=== PATIENT | female | born 1960 | race Caucasian/White ===

== ENCOUNTER 2020-10-06 09:52 | Outpatient (REF) | payer OTHER, SELFPAY ==
--- NOTE | 2020-10-06 10:56 | XR_ITS ---
EXAMINATION: XR CERVICAL SPINE CLINICAL INFORMATION: Neck pain. COMPARISON: None TECHNIQUE: Three views of the cervical spine were obtained. FINDINGS: The C7 vertebral body is not well visualized on the lateral view There is curvature of the lower cervical and upper thoracic spine to the right. Bone alignment is otherwise normal. No fracture or dislocation is seen. There is degenerative spondylosis and degenerative disc disease from C4-C5 to C6-C7. Prevertebral soft tissues appear prominent. No abnormal air collection or soft tissue foreign body is seen. XR/XR cervical spine 2V IMPRESSION: Limited visualization of C7. Severe degenerative spondylosis and degenerative disc disease from C4-C5 to C6-C7. Prominent prevertebral soft tissues anterior to the lower cervical spine.
== END 2020-10-06 09:53 | disposition home or self-care (01) ==
LOC: HO.XRAY 09:52
PROVIDERS: PCP Internal Medicine; Referring Provider Internal Medicine; Visit Provider Student in an Organized Health Care Education/Training Program
DX: M54.2 Cervicalgia (principal); M79.7 Fibromyalgia; M19.90 Unspecified osteoarthritis, unspecified site; F17.210 Nicotine dependence, cigarettes, uncomplicated; Z79.899 Other long term (current) drug therapy
CPT/HCPCS: 72040; 99212

== ENCOUNTER 2020-10-14 12:49 | Outpatient (REF) | payer OTHER, SELFPAY ==
--- NOTE | 2020-10-14 11:54 | MR_ITS ---
EXAMINATION: MR CERVICAL SPINE WITHOUT CONTRAST CLINICAL INFORMATION: Cervicalgia. COMPARISON: Cervical spine radiograph 10/06/2020. TECHNIQUE: MRI of the cervical spine was performed using routine sequences without contrast. FINDINGS: There are expected extensive T2/STIR signal abnormality involving the C4, C5, C6, C7, and T1 vertebral bodies there is significant loss of the C4-C5, C5-C6, C6-C7, and C7-T1 disc spaces. Endplate irregularity is seen at C6-C7 but no subchondral collapse is noted. Abnormal STIR signal is also present in the posterior elements and paraspinal soft tissues from C4 through T1. Ill-defined soft tissue is seen in the paravertebral region from the C4 through upper T1 levels compatible with phlegmon. The visualized arterial flow voids appear preserved. The cervical cord signal appears normal. Epidural thickening/phlegmonous change is seen ventrally from C4 to C7. No well-defined epidural collection is seen. The imaged portions of the intracranial contents appear normal. SPINAL LEVELS: C2-C3: No posterior disc abnormality. No spinal canal or neural foraminal stenosis. C3-C4: Disc bulging with left uncovertebral hypertrophy resulting in mild left neural foraminal stenosis. C4-C5: Minimal anterolisthesis. Disc bulging. Moderate spinal canal stenosis. Uncovertebral hypertrophy resulting in moderate left and mild right neural foraminal stenosis. C5-C6: Disc osteophyte complex with uncovertebral hypertrophy resulting in moderate spinal canal stenosis and moderate left more than right neural foraminal stenosis. C6-C7: Disc osteophyte complex with uncovertebral hypertrophy resulting in moderate left and mild right neural foraminal stenosis. C7-T1: Disc osteophyte complex with uncovertebral hypertrophy resulting in moderate bilateral neural foraminal stenosis but no significant spinal canal stenosis. MR/MR cervical spine wo con IMPRESSION: Extensive T2/STIR signal abnormality is seen involving the C4-T1 vertebral bodies and posterior elements. Significant disc height loss is seen without discrete subchondral collapse. Abnormal soft tissue is present in the paravertebral region concerning for phlegmon. The imaging features are concerning for discitis osteomyelitis. However due to the extensive involvement, other differential considerations should become considered including an infiltrative lesion such as lymphoma, or advanced changes related to inflammatory spondyloarthropathy. Abnormal signal within the ventral epidural space from C4 to C5 is concerning for phlegmon. Consider dedicated postcontrast images of the cervical spine. Dedicated cervical spine CT may also be value in evaluating for erosive changes. This critical result was discussed with Dr. Butcher on 10/15/2020 12:01 PM, and it was ascertained that the content and urgency of the report was understood at the time of direct communication.
== END 2020-10-14 12:50 | disposition home or self-care (01) ==
LOC: HO.MRI 12:49
PROVIDERS: Visit Provider Student in an Organized Health Care Education/Training Program
DX: M54.2 Cervicalgia (principal)
CPT/HCPCS: 72141

== ENCOUNTER 2020-10-15 15:25 | Outpatient (REF) | payer OTHER, SELFPAY ==
--- NOTE | 2020-10-15 16:03 | CT_ITS ---
EXAMINATION: CT CERVICAL SPINE WITH CONTRAST CLINICAL INFORMATION: Abnormal findings on diagnostic imaging of other parts of musculoskeletal system. COMPARISON: Cervical spine MRI 10/14/2020. TECHNIQUE: CT of the cervical spine was performed following the intravenous administration of 60 mL Omnipaque 350. Multiplanar reformats were rendered and reviewed. This CT examination was performed using dose optimization techniques as appropriate, variously including the following: *Automated exposure control *Adjustment of mA and/or kV according to patient size (this includes techniques or standardized protocols for targeted exams where dose is matched to indication/reason for exam; i.e. extremities or head) *Use of iterative reconstruction technique DLP: 301 mGy-cm FINDINGS: The vertebral bodies maintain normal heights and alignment. There are sclerotic changes centered about the endplates from C4 through T1 with endplate irregularity seen across multiple levels most significantly inferiorly at C7. No subchondral collapse is seen. Anterior osteophytes/syndesmophytes are seen from C4 to T1. Mild degenerative changes are seen involving the right-sided facets but no severe facet arthropathy is noted. As noted on the prior MRI there is significant thickening of the paravertebral soft tissues without a well-defined or rim-enhancing fluid collection. The imaged portions of the intracranial contents appear normal. The major neck vessels appear grossly patent the thyroid gland appears normal. The submandibular and parotid glands appear normal. An enlarged left level 5B lymph node is seen measuring up to 1.1 cm. Additional nonenlarged lymph nodes are seen along the bilateral cervical chains. Incidentally noted are significant erosive changes at the bilateral sternoclavicular joints. The upper lungs are grossly clear CT/CT cervical spine w con IMPRESSION: Diffuse intervertebral disc height loss from C4 through T1 with sclerotic changes within the vertebral bodies with multifocal endplate irregularities most significantly at C7-T1. No evidence of subchondral collapse. No definite erosive changes seen involving the facets. Redemonstration of paravertebral soft tissue thickening. No evidence of rim-enhancing fluid collection. Incidentally noted significant erosive changes at the bilateral sternoclavicular joints. Given these features (and involvement of the sternoclavicular joints), an inflammatory etiology, most likely an inflammatory spondyloarthropathy is favored to account for these findings. The paravertebral thickening may represent inflammatory panus. Infectious process remains a differential consideration but is felt less likely (patient reportedly does not have fever). Incidentally noted nonspecific mildly enlarged 1.1 cm left level 5B lymph node.
[2020-10-15 17:31] LABS: Blood Urea Nitrogen 10 mg/dL (9-16); Estimated Glomerular Filt Rate > 60
[2020-10-15] MEDS: iohexoL 350 MG/ML 100 ML INFUS..BTL IV (18:12)
== END 2020-10-15 15:26 | disposition home or self-care (01) ==
LOC: HO.CT 15:25
PROVIDERS: PCP Internal Medicine; Visit Provider Student in an Organized Health Care Education/Training Program
DX: R93.7 Abnormal findings on diagnostic imaging of other parts of musculoskeletal system (principal)
CPT/HCPCS: 36415; 72126; 82565; 84520; Q9967

== ENCOUNTER 2020-10-16 16:04 | Outpatient (REF) | payer OTHER, SELFPAY ==
--- NOTE | 2020-10-16 16:06 | MR_ITS ---
EXAMINATION: MR CERVICAL SPINE WITH CONTRAST CLINICAL INFORMATION: Follow-up abnormal findings on recent prior imaging. COMPARISON: MRI from 10/14/[address] dated 10/15/2020. TECHNIQUE: MRI of the cervical spine was obtained using routine sequences with contrast. Intravenous contrast: Gadavist 5 mL. FINDINGS: There is diffuse heterogeneous enhancement in the C4, C5, C6, C7, and T1 vertebral bodies with additional abnormal enhancement in the posterior elements and in the C7 spinous process. Mild epidural soft tissue enhancement is visible from the C4 through the T1 levels as well with circumferential impression upon the thecal sac and exiting foraminal nerve roots, most significantly at the C6-C7 level. There is abnormal soft tissue enhancement in the prevertebral soft tissues at these levels as well. No drainable fluid collection is identified. There is a stable reversal of the normal cervical lordosis. There is no abnormal enhancement intracranially on the submitted images. No pathologic intramedullary enhancement is seen in the cord. The vertebral artery flow voids are maintained. The lung apices are clear. There is nonspecific mild circumferential wall thickening of the esophagus. No pathologically enlarged cervical lymph nodes are seen. MR/MR cervical spine w con IMPRESSION: Diffuse heterogeneous enhancement in the C4-T1 vertebrae with prevertebral soft tissue thickening and enhancement again evident at these levels. Circumferential epidural soft tissue enhancement with impression upon the thecal sac. No drainable fluid collection. 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 An infectious etiology is a differential diagnostic consideration, though again felt to be less likely. Clinically correlate.
== END 2020-10-16 16:05 | disposition home or self-care (01) ==
LOC: HO.MRI 16:04
PROVIDERS: Visit Provider Student in an Organized Health Care Education/Training Program
DX: R93.7 Abnormal findings on diagnostic imaging of other parts of musculoskeletal system (principal)
CPT/HCPCS: 72142; A9585

== ENCOUNTER 2020-11-07 10:42 | Outpatient (REF) | payer OTHER, SELFPAY | END 2020-11-07 10:43 | disposition home or self-care (01) | LOC: HO.LAB 10:42 | PROVIDERS: PCP Internal Medicine; Visit Provider Student in an Organized Health Care Education/Training Program | DX: R93.7 Abnormal findings on diagnostic imaging of other parts of musculoskeletal system (principal) | CPT/HCPCS: 87040 ==

== ENCOUNTER 2021-04-09 12:13 | Outpatient (REF) | payer OTHER, SELFPAY ==
[2021-04-09 13:15] LABS: MANUAL DIFF FLAG NO
[2021-04-09 13:19] LABS: Basophils Absolute Auto 0.1 X10*3/uL (0.0-0.2); Basophils Percent Auto 0.9 % (0-2); Eosinophils Absolute Auto 0.2 X10*3/uL (0.0-0.4); Eosinophils Percent Auto 1.3 % (0-4); Hemoglobin 12.2 g/dl (12.0-16.0); Imm Gran Abs Auto 0.02 X10*3/uL (0.00-0.03); Imm Gran Pct Auto 0.2 % (0.0-0.4); Lymphocytes Absolute Auto 3.6 X10*3/uL (1.2-4.9); Lymphocytes Percent Auto 31.3 % (20-40); Mean Corpuscular HGB Conc 32.1 g/dl (31.0-35.0); Mean Corpuscular Volume 87.4 fL (80-98); Mean Platelet Volume 8.7 fL (9.4-12.3); Monocytes Absolute Auto 0.9 X10*3/uL (0.1-1.2); Monocytes Percent Auto 7.4 % (2-11); Neutrophils Absolute Auto 6.8 X10*3/uL (2.0-8.3); Neutrophils Percent Auto 58.9 % (45-73); Platelet Count 466 X10*3/uL (160-400); Red Blood Count 4.35 X10*6/uL (4.20-5.50); Red Cell Distribution Width 16.2 % (11.0-16.0); White Blood Count 11.6 X10*3/uL (4.8-10.8)
[2021-04-09 13:44] LABS: Alanine Aminotransferase 13 U/L (0-31); Albumin Level 3.9 g/dL (3.5-5.0); Alkaline Phosphatase 157 U/L (39-117); Anion Gap 13 (12-20); Aspartate Amino Transferase 16 U/L (5-31); Bilirubin Total 0.3 mg/dL (0.0-1.0); Blood Urea Nitrogen 8 mg/dL (9-16); C Reactive Protein 6.14 mg/dL (< or = 0.50); Calcium 9.2 mg/dL (8.4-10.2); Carbon Dioxide 28 mmol/L (22-29); Chloride 101 mmol/L (96-108); Estimated Glomerular Filt Rate > 60; Glucose Random 79 mg/dL (60-115); Potassium 3.9 mmol/L (3.3-5.1); Sodium 138 mmol/L (135-145); Total Protein 7.5 g/dL (6.5-8.0)
[2021-04-09 14:00] LABS: Erythrocyte Sedimentation Rate 78 MM/HR (0-20)
== END 2021-04-09 12:14 | disposition home or self-care (01) ==
LOC: HO.LAB 12:13
PROVIDERS: PCP Internal Medicine; Visit Provider Student in an Organized Health Care Education/Training Program
DX: L40.50 Arthropathic psoriasis, unspecified (principal); M79.7 Fibromyalgia; F17.210 Nicotine dependence, cigarettes, uncomplicated; Z79.899 Other long term (current) drug therapy
CPT/HCPCS: 36415; 80053; 85025; 85652; 86140; 99212

== ENCOUNTER → 2021-04-16 10:35 | Outpatient (BNVA) | payer OTHER, SELFPAY | PROVIDERS: PCP Internal Medicine; Visit Provider Student in an Organized Health Care Education/Training Program ==

== ENCOUNTER → 2021-05-27 10:40 | Outpatient (BNVA) | payer OTHER, SELFPAY | PROVIDERS: PCP Internal Medicine; Visit Provider Student in an Organized Health Care Education/Training Program ==

== ENCOUNTER → 2021-08-24 12:45 | Outpatient (BNVA) | payer OTHER, SELFPAY | PROVIDERS: PCP Internal Medicine; Visit Provider Nurse Practitioner Family | DX: L40.50 Arthropathic psoriasis, unspecified (principal); M79.7 Fibromyalgia | CPT/HCPCS: 99212 ==

== ENCOUNTER 2021-09-28 12:50 | Outpatient (REF) | payer OTHER, SELFPAY ==
[2021-09-28 13:04] LABS: MANUAL DIFF FLAG NO
[2021-09-28 13:23] LABS: Basophils Absolute Auto 0.1 X10*3/uL (0.0-0.2); Basophils Percent Auto 0.8 % (0-2); Eosinophils Absolute Auto 0.2 X10*3/uL (0.0-0.4); Eosinophils Percent Auto 1.5 % (0-4); Hematocrit 38.7 % (37.0-47.0); Hemoglobin 12.5 g/dl (12.0-16.0); Imm Gran Abs Auto 0.02 X10*3/uL (0.00-0.03); Imm Gran Pct Auto 0.2 % (0.0-0.4); Lymphocytes Absolute Auto 4.1 X10*3/uL (1.2-4.9); Lymphocytes Percent Auto 42.1 % (20-40); Mean Corpuscular HGB Conc 32.3 g/dl (31.0-35.0); Mean Corpuscular Hemoglobin 29.8 pg (27.0-33.0); Mean Corpuscular Volume 92.1 fL (80.0-98.0); Mean Platelet Volume 9.4 fL (9.4-12.3); Monocytes Absolute Auto 0.6 X10*3/uL (0.1-1.2); Monocytes Percent Auto 6.5 % (2-11); Neutrophils Absolute Auto 4.7 x10*3/uL (2.0-8.3); Neutrophils Percent Auto 48.9 % (45-73); Platelet Count 354 X10*3/uL (160-400); Red Cell Distribution Width 15.2 % (11.0-16.0); White Blood Count 9.7 X10*3/uL (4.8-10.8)
[2021-09-28 13:39] LABS: Alanine Aminotransferase 18 U/L (0-31); Alkaline Phosphatase 118 U/L (39-117); Anion Gap 10 (12-20); Aspartate Amino Transferase 18 U/L (5-31); Bilirubin Total 0.2 mg/dL (0.0-1.0); Blood Urea Nitrogen 18 mg/dL (9-16); Calcium 9.2 mg/dL (8.4-10.2); Carbon Dioxide 28 mmol/L (22-29); Chloride 106 mmol/L (96-108); Estimated Glomerular Filt Rate > 60; Glucose Random 88 mg/dL (60-115); Potassium 3.8 mmol/L (3.3-5.1); Sodium 140 mmol/L (135-145); Total Protein 7.3 g/dL (6.5-8.0)
[2021-09-28 14:23] LABS: Erythrocyte Sedimentation Rate 23 MM/HR (0-20)
[2021-10-01 14:31] LABS: Alkaline Phosphatase Bone 22.1 mcg/L (5.6-29.0)
== END 2021-09-28 12:51 | disposition home or self-care (01) ==
LOC: HO.LAB 12:50
PROVIDERS: Visit Provider Nurse Practitioner Family
DX: L40.50 Arthropathic psoriasis, unspecified (principal); R74.8 Abnormal levels of other serum enzymes
CPT/HCPCS: 36415; 80053; 84075; 85025; 85652; 86140

== ENCOUNTER → 2021-10-22 10:53 | Outpatient (BNVA) | payer OTHER, SELFPAY | PROVIDERS: Visit Provider Nurse Practitioner Family ==

== ENCOUNTER 2021-11-25 12:41 | Outpatient (REF) | payer OTHER, SELFPAY ==
[2021-11-25 13:36] LABS: MANUAL DIFF FLAG NO
[2021-11-25 13:47] LABS: Basophils Absolute Auto 0.1 X10*3/uL (0.0-0.2); Basophils Percent Auto 0.8 % (0-2); Eosinophils Absolute Auto 0.2 X10*3/uL (0.0-0.4); Eosinophils Percent Auto 1.7 % (0-4); Hematocrit 38.4 % (37.0-47.0); Hemoglobin 12.2 g/dl (12.0-16.0); Imm Gran Abs Auto 0.03 X10*3/uL (0.00-0.03); Imm Gran Pct Auto 0.3 % (0.0-0.4); Lymphocytes Absolute Auto 3.9 X10*3/uL (1.2-4.9); Lymphocytes Percent Auto 38.9 % (20-40); Mean Corpuscular HGB Conc 31.8 g/dl (31.0-35.0); Mean Corpuscular Hemoglobin 29.6 pg (27.0-33.0); Mean Corpuscular Volume 93.2 fL (80.0-98.0); Mean Platelet Volume 8.9 fL (9.4-12.3); Monocytes Absolute Auto 0.7 X10*3/uL (0.1-1.2); Neutrophils Absolute Auto 5.2 x10*3/uL (2.0-8.3); Neutrophils Percent Auto 51.3 % (45-73); Platelet Count 335 X10*3/uL (160-400); Red Blood Count 4.12 X10*6/uL (4.20-5.50); Red Cell Distribution Width 15.7 % (11.0-16.0); White Blood Count 10.1 X10*3/uL (4.8-10.8)
[2021-11-25 14:08] LABS: Alanine Aminotransferase 22 U/L (0-31); Albumin Level 3.9 g/dL (3.5-5.0); Alkaline Phosphatase 115 U/L (39-117); Anion Gap 10 (12-20); Aspartate Amino Transferase 21 U/L (5-31); Bilirubin Total 0.2 mg/dL (0.0-1.0); Blood Urea Nitrogen 19 mg/dL (9-16); Carbon Dioxide 27 mmol/L (22-29); Chloride 105 mmol/L (96-108); Estimated Glomerular Filt Rate > 60; Glucose Random 105 mg/dL (60-115); Potassium 3.9 mmol/L (3.3-5.1); Sodium 138 mmol/L (135-145)
[2021-11-25 15:02] LABS: Erythrocyte Sedimentation Rate 23 MM/HR (0-20)
== END 2021-11-25 12:42 | disposition home or self-care (01) ==
LOC: HO.LAB 12:41
PROVIDERS: Visit Provider Nurse Practitioner Family
DX: L40.50 Arthropathic psoriasis, unspecified (principal); M79.7 Fibromyalgia
CPT/HCPCS: 36415; 80053; 85025; 85652; 86140; 99212

== ENCOUNTER → 2021-12-20 10:25 | Outpatient (REF) | payer OTHER, SELFPAY | LOC: HO.SL 10:25 | PROVIDERS: PCP Internal Medicine; Visit Provider Nurse Practitioner Family | DX: R06.83 Snoring (principal); R40.0 Somnolence; G47.19 Other hypersomnia; G47.00 Insomnia, unspecified; G43.109 Migraine with aura, not intractable, without status migrainosus | CPT/HCPCS: 95806 ==

== ENCOUNTER → 2022-01-17 07:59 | Outpatient (BNVA) | payer OTHER, SELFPAY | PROVIDERS: PCP Internal Medicine; Visit Provider Nurse Practitioner Family | DX: G43.109 Migraine with aura, not intractable, without status migrainosus (principal); G47.00 Insomnia, unspecified | CPT/HCPCS: 99212 ==

== ENCOUNTER → 2022-02-28 09:37 | Outpatient (BNVA) | payer OTHER, SELFPAY | PROVIDERS: PCP Internal Medicine; Visit Provider Nurse Practitioner Family | DX: L40.50 Arthropathic psoriasis, unspecified (principal); M79.7 Fibromyalgia | CPT/HCPCS: 99212 ==

== ENCOUNTER → 2022-05-30 10:20 | Outpatient (BNVA) | payer OTHER, SELFPAY | PROVIDERS: PCP Neurological Surgery; Visit Provider Nurse Practitioner Family | DX: L40.50 Arthropathic psoriasis, unspecified (principal); M79.7 Fibromyalgia; Z79.899 Other long term (current) drug therapy | CPT/HCPCS: 99212 ==

== ENCOUNTER → 2022-10-17 11:02 | Outpatient (BNVA) | payer OTHER, SELFPAY | PROVIDERS: PCP Neurological Surgery; Visit Provider Nurse Practitioner Family | DX: L40.50 Arthropathic psoriasis, unspecified (principal); M79.7 Fibromyalgia; Z79.899 Other long term (current) drug therapy | CPT/HCPCS: 99212 ==

== ENCOUNTER 2022-10-17 12:27 | Outpatient (REF) | payer OTHER, SELFPAY ==
[2022-10-17 14:32] LABS: C Reactive Protein 0.28 mg/dL (< or = 0.50)
[2022-10-17 16:18] LABS: Erythrocyte Sedimentation Rate 28 MM/HR (0-20)
== END 2022-10-17 12:28 | disposition home or self-care (01) ==
LOC: HO.10HDL 12:27
PROVIDERS: Visit Provider Nurse Practitioner Family
DX: L40.50 Arthropathic psoriasis, unspecified (principal)
CPT/HCPCS: 36415; 85652; 86140

== ENCOUNTER → 2022-12-13 09:46 | Outpatient (BNVA) | payer OTHER, SELFPAY | PROVIDERS: PCP Internal Medicine; Visit Provider Nurse Practitioner Family | DX: L40.50 Arthropathic psoriasis, unspecified (principal); M79.7 Fibromyalgia | CPT/HCPCS: 99212 ==

== ENCOUNTER 2022-12-13 11:07 | Outpatient (REF) | payer OTHER, SELFPAY ==
[2022-12-13 13:18] LABS: MANUAL DIFF FLAG NO
[2022-12-13 13:29] LABS: Basophils Absolute Auto 0.1 X10*3/uL (0.0-0.2); Basophils Percent Auto 0.9 % (0-2); Eosinophils Absolute Auto 0.1 X10*3/uL (0.0-0.4); Eosinophils Percent Auto 1.1 % (0-4); Hematocrit 40.2 % (37.0-47.0); Hemoglobin 12.8 g/dl (12.0-16.0); Imm Gran Abs Auto 0.04 X10*3/uL (0.00-0.03); Imm Gran Pct Auto 0.5 % (0.0-0.4); Lymphocytes Absolute Auto 1.7 X10*3/uL (1.2-4.9); Lymphocytes Percent Auto 19.1 % (20-40); Mean Corpuscular HGB Conc 31.8 g/dl (31.0-35.0); Mean Corpuscular Hemoglobin 29.6 pg (27.0-33.0); Mean Corpuscular Volume 92.8 fL (80.0-98.0); Mean Platelet Volume 10.3 fL (9.4-12.3); Monocytes Absolute Auto 1.1 X10*3/uL (0.1-1.2); Monocytes Percent Auto 12.3 % (2-11); Neutrophils Absolute Auto 5.8 x10*3/uL (2.0-8.3); Neutrophils Percent Auto 66.1 % (45-73); Platelet Count 358 X10*3/uL (160-400); Red Blood Count 4.33 X10*6/uL (4.20-5.50); Red Cell Distribution Width 15.2 % (11.0-16.0); White Blood Count 8.7 X10*3/uL (4.8-10.8)
[2022-12-13 14:14] LABS: Erythrocyte Sedimentation Rate 40 MM/HR (0-20)
[2022-12-13 15:37] LABS: Alanine Aminotransferase 13 U/L (0-31); Albumin Level 4.1 g/dL (3.5-5.0); Alkaline Phosphatase 145 U/L (39-117); Anion Gap 10 (12-20); Aspartate Amino Transferase 15 U/L (5-31); Bilirubin Total 0.2 mg/dL (0.0-1.0); Blood Urea Nitrogen 15 mg/dL (9-16); C Reactive Protein 0.92 mg/dL (< or = 0.50); Calcium 8.9 mg/dL (8.4-10.2); Carbon Dioxide 28 mmol/L (22-29); Chloride 107 mmol/L (96-108); Estimated Glomerular Filt Rate > 60; Glucose Random 82 mg/dL (60-115); Potassium 4.3 mmol/L (3.3-5.1); Sodium 141 mmol/L (135-145); Total Protein 7.3 g/dL (6.5-8.0)
[2022-12-13 15:43] LABS: Amphetamine Screen Urine Not Detected (Not Detect); Barbiturates, Urine Not Detected (Not Detect); Benzodiazepines Screen Urine Not Detected (Not Detect); Cannabinoid Screen Urine Not Detected (Not Detect); Cocaine Screen Urine Not Detected (Not Detect); Fentanyl, urine Not Detected (Not Detect); Opiate Screen Urine Not Detected (Not Detect); Phencyclidine Screen Urine Not Detected (Not Detect)
[2022-12-14 04:27] LABS: HBS Num1 0.14 mIU/mL (0-7.99); HBc Num1 0.09 S/CO (0.00-0.79); Hepatitis A Antibody IgM 0.32 Index (0-0.79); Hepatitis B Core Antibody Nonreactive (Nonreactive); Hepatitis B Surface Antigen Negative (Negative); ~HepC Num1 0.15 S/CO (0.00-0.79); ~Hepatitis A Antibody IgM Nonreactive (Nonreactive); ~Hepatitis B Surface Antibody NONREACTIVE (Nonreactive); ~Hepatitis C Antibody Nonreactive (Nonreactive)
[2022-12-15 22:59] LABS: Prot Elec - Albumin 3.9 g/dL (3.8-4.8); Prot Elec - Alpha1 0.3 g/dL (0.2-0.3); Prot Elec - Beta 1 0.4 g/dL (0.4-0.6); Prot Elec - Beta 2 0.5 g/dL (0.2-0.5); Prot Elec - Gamma 1.5 g/dL (0.8-1.7); Prot Elec - Total Protein 7.5 g/dL (6.1-8.1)
[2022-12-16 06:34] LABS: TS Negative Control Passed; TS Panel A 0; TS Panel B 0; TS Positive Control Passed; TSpotTB Negative (Negative)
[2022-12-26 07:47] LABS: Desmethyltramadol, Ur NEGATIVE; Tramadol, Ur NEGATIVE
== END 2022-12-13 11:08 | disposition home or self-care (01) ==
LOC: HO.10HDL 11:07
PROVIDERS: Visit Provider Nurse Practitioner Family
DX: L40.50 Arthropathic psoriasis, unspecified (principal); M79.7 Fibromyalgia; Z51.81 Encounter for therapeutic drug level monitoring; Z79.899 Other long term (current) drug therapy
CPT/HCPCS: 80053; 80307; 80373; 84165; 85025; 85652; 86140; 86481; 86704; 86706; 86709; 86803; 87340

== ENCOUNTER → 2023-01-13 10:43 | Outpatient (BNVA) | payer OTHER, SELFPAY | PROVIDERS: PCP Internal Medicine; Visit Provider Nurse Practitioner Family | DX: L40.50 Arthropathic psoriasis, unspecified (principal); M79.7 Fibromyalgia | CPT/HCPCS: 99212 ==

== ENCOUNTER 2023-01-13 12:02 | Outpatient (REF) | payer OTHER, SELFPAY ==
[2023-01-13 13:18] LABS: MANUAL DIFF FLAG NO
[2023-01-13 13:28] LABS: Basophils Absolute Auto 0.2 X10*3/uL (0.0-0.2); Basophils Percent Auto 1.3 % (0-2); Eosinophils Absolute Auto 0.2 X10*3/uL (0.0-0.4); Eosinophils Percent Auto 1.6 % (0-4); Hematocrit 40.5 % (37.0-47.0); Hemoglobin 12.9 g/dl (12.0-16.0); Imm Gran Abs Auto 0.03 X10*3/uL (0.00-0.03); Imm Gran Pct Auto 0.3 % (0.0-0.4); Lymphocytes Absolute Auto 4.8 X10*3/uL (1.2-4.9); Lymphocytes Percent Auto 42.7 % (20-40); Mean Corpuscular HGB Conc 31.9 g/dl (31.0-35.0); Mean Corpuscular Hemoglobin 29.3 pg (27.0-33.0); Mean Corpuscular Volume 91.8 fL (80.0-98.0); Mean Platelet Volume 9.9 fL (9.4-12.3); Monocytes Absolute Auto 0.7 X10*3/uL (0.1-1.2); Monocytes Percent Auto 6.6 % (2-11); Neutrophils Absolute Auto 5.4 x10*3/uL (2.0-8.3); Neutrophils Percent Auto 47.5 % (45-73); Platelet Count 312 X10*3/uL (160-400); Red Blood Count 4.41 X10*6/uL (4.20-5.50); Red Cell Distribution Width 14.6 % (11.0-16.0); White Blood Count 11.3 X10*3/uL (4.8-10.8)
[2023-01-13 13:40] LABS: Alanine Aminotransferase 15 U/L (0-31); Alkaline Phosphatase 125 U/L (39-117); Anion Gap 12 (12-20); Aspartate Amino Transferase 17 U/L (5-31); Bilirubin Total 0.3 mg/dL (0.0-1.0); Blood Urea Nitrogen 17 mg/dL (9-16); C Reactive Protein 0.13 mg/dL (< or = 0.50); Calcium 8.9 mg/dL (8.4-10.2); Carbon Dioxide 27 mmol/L (22-29); Chloride 106 mmol/L (96-108); Estimated Glomerular Filt Rate > 60; Glucose Random 84 mg/dL (60-115); Potassium 3.8 mmol/L (3.3-5.1); Sodium 141 mmol/L (135-145); Total Protein 7.1 g/dL (6.5-8.0)
[2023-01-13 14:14] LABS: Erythrocyte Sedimentation Rate 20 MM/HR (0-20)
== END 2023-01-13 12:03 | disposition home or self-care (01) ==
LOC: HO.10HDL 12:02
PROVIDERS: Visit Provider Nurse Practitioner Family
DX: L40.50 Arthropathic psoriasis, unspecified (principal); M79.7 Fibromyalgia; Z79.899 Other long term (current) drug therapy
CPT/HCPCS: 36415; 80053; 85025; 85652; 86140

== ENCOUNTER → 2023-01-24 12:05 | Outpatient (BNVA) | payer OTHER, SELFPAY | PROVIDERS: PCP Internal Medicine; Visit Provider Psychiatry & Neurology Neurology | DX: G37.3 Acute transverse myelitis in demyelinating disease of central nervous system (principal); M79.7 Fibromyalgia; G56.22 Lesion of ulnar nerve, left upper limb; Z79.631 Long term (current) use of antimetabolite agent | CPT/HCPCS: 99202 ==

== ENCOUNTER 2023-03-09 10:25 | Outpatient (REF) | payer OTHER, SELFPAY ==
--- NOTE | ~2023-03-09 | MR_ITS ---
EXAMINATION: MR BRAIN WITHOUT AND WITH CONTRAST CLINICAL INFORMATION: 62-year-old with acute transverse myelitis and malalignment disease of the central nervous system. Self-reported history of psoriatic arthritis and rheumatoid arthritis. COMPARISON: 10/16/2020 MRI cervical spine, previously suspected inflammatory spondyloarthropathy. TECHNIQUE: Multiplanar, multisequence MRI of the brain was obtained before and after the intravenous administration of 5 mL Gadavist. FINDINGS: Brain Volume: Within normal limits within the limitations of qualitative assessment. Structural: No malformations. Brain and Meninges: DWI sequence demonstrates no restricted diffusion to suggest acute or subacute cerebral ischemia. There are scattered small patchy and punctate foci of FLAIR/T2 signal hyperintensity in the subcortical white matter of both cerebral hemispheres and within the subcortical and deeper white matter of the parieto-occipital regions/periatrial regions bilaterally and left temporal lobe white matter with no abnormal enhancement. These are nonspecific but could reflect chronic ischemic microangiopathy. No evidence for acute inflammatory process. Demyelinating disease is considered less likely but not entirely excluded. Gradient refocused imaging demonstrates no abnormal susceptibility-weighted signal loss to suggest hemorrhage, hemosiderin staining or abnormal mineralization. No intracranial mass lesions, pathologic intracranial enhancement, extra-axial fluid collections, space-occupying process or mass effect are identified. Ventricles and Subarachnoid Spaces: The ventricular system and subarachnoid spaces are within normal range; there is no hydrocephalus. Orbital Structures: The visualized orbital structures are grossly unremarkable within the limitations of the study. Vascular: Signal voids are noted in the visualized major intracranial vessels. Osseous Structures, Sinuses/Mastoids, Extracranial Soft Tissues: T1 signal loss noted in the C4 vertebral body which is slightly more prominent than on the previous MRI. Otherwise, osseous marrow signal intensity appears grossly within normal limits. The visualized extra cranial soft tissue structures are unremarkable. There is minor mucosal thickening in the ethmoid complex.. MR/MR head/brain wo/w con IMPRESSION: 1. Scattered nonenhancing white matter T2 hyperintensities in the cerebral hemispheres bilaterally as described above which are nonspecific findings but could reflect chronic ischemic microangiopathy. Demyelinating disease is considered less likely but not entirely excluded. 2. No intracranial mass lesion, pathologic enhancement, space-occupying process, mass effect, hemorrhage, or hydrocephalus. 3. T1 signal loss in the C4 vertebral body which is slightly more prominent than on the previous MRI. This is nonspecific. Recommend followup MRI of the cervical spine with contrast in 6 months to reassess this.
== END 2023-03-09 10:26 | disposition home or self-care (01) ==
LOC: HO.MRI 10:25
PROVIDERS: PCP Internal Medicine; Visit Provider Psychiatry & Neurology Neurology
DX: G37.3 Acute transverse myelitis in demyelinating disease of central nervous system (principal); R20.0 Anesthesia of skin
CPT/HCPCS: 70553; A9585

== ENCOUNTER 2023-04-19 11:58 | Outpatient (AMB) | payer OTHER, SELFPAY ==
[2023-04-19 12:05] VITALS: BP 112/70; PULSE 78; TEMP 36.3; O2SAT 98; BMI 24.1
--- NOTE | 2023-04-19 12:05 | MHC.OFFVIS ---
Intake Vital Signs 04/19/23 12:05 Height 4 ft 7 in Weight 103 lb 13.404 oz BMI 24.1 BP 112/70 Blood Pressure Location Rt brachial Position Sitting Pulse 78 Pulse Source Pulse Oximeter Temp 97.3 F Temp Source Skin Pulse Oximetry (%) 98 Intake Visit Reasons: psoriatic arthritis - Confirmed Intake Note: Pt seen today for PsA follow up. Reports back pain that radiates down left leg. 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 Accompanied by: Son Allergies No Known Allergies [No Known Allergies*] Allergy (Verified 04/19/23 12:08) Medication List - Last Reconciled 04/19/23 by Prema Asencio MD adalimumab (Humira(CF) Pen) inject one - 40 mg/0.4 mL pen every 2 weeks subcut albuterol sulfate 90 mcg/actuation 2 puffs inhalation Q4-6H PRN amitriptyline 50 mg (2 x 25 mg) PO BEDTIME 30 days atorvastatin 40 mg PO BEDTIME 90 days baclofen 10 mg PO TID PRN budesonide-formoterol 80-4.5 mcg/actuation (Symbicort) 2 puffs inhalation BID buspirone 5 mg PO BID 30 days ytrmgttxan-qzbzmbkhtzxxm-wkxj 50-325-40 mg 1 tab PO Q4H PRN 30 days cholecalciferol (vitamin D3) 50 mcg PO DAILY docusate sodium 100 mg PO DAILY PRN duloxetine 60 mg PO DAILY 30 days ferrous sulfate 325 mg PO DAILY 30 days folic acid 1 mg PO DAILY methotrexate sodium 20 mg (8 x 2.5 mg) PO QWEEK omega 5-zww-eol-fish oil 1,000 mg (120 mg-180 mg) 1 cap PO DAILY omeprazole 20 mg PO DAILY sulindac 200 mg PO DAILY tramadol 50 mg PO Q6H zolpidem (Ambien) 10 mg PO BEDTIME PRN 30 days HPI HPI Comments History of Present Illness Details This is a 62-year-old female with psoriatic arthritis who presents for follow-up. She is currently on methotrexate 20 mg once weekly and Humira. Patient states that her skin psoriasis continues to improve. She now has few patches on her palms and feet. Continues to have neck pain. She states that it has not improved much. She takes sulindac nightly and tramadol as needed. She also has mid to lower back pain that radiates towards her left lower extremity. This seems to be recent. She has numbness of both lower extremities, she also has history of carpal tunnel syndrome of her hands and she had carpal tunnel release surgery in the past. She denies any loss of bladder or stool control. [facility] Medical History Cubital tunnel syndrome on left Fibromyalgia Transverse myelitis Surgical History H/O carpal tunnel repair Social History Alcohol intake: never Patient Tobacco Use Status: Current everyday Tobacco user Tobacco use type: Cigarette Cigarettes Per Day: 20 Years Smoked: 39 e-Cigarette/Vaping Use: Never Used Review of Systems ENT Reports neck pain Musc Reports back pain, Reports arthralgias, Reports neck pain, Reports numbness and Reports radiating pain into limb Skin/Breast Reports rash Neuro Reports numbness Physical Exam Vital Signs: Last Vital Signs Temp 97.3 F 04/19/23 12:05 Pulse 78 04/19/23 12:05 BP 112/70 04/19/23 12:05 Pulse Ox 98 04/19/23 12:05 BMI result Body Mass Index 24.1 Const General: cooperative, healthy appearing and comfortable Nutritional Appearance: average body habitus Orientation/consciousness: patient oriented x3 Limitations: no limitations HEENT Head: Yes normocephalic and Yes atraumatic Mouth: moist mucous membranes Resp Effort & Inspection: normal respiratory effort and able to speak in complete sentences Auscultation: clear to auscultation bilaterally Cardio Rate: regular rate Rhythm: regular rhythm Skin Other: Few areas of dry skin psoriatic lesions on palms and soles of feet Neuro Other: Bilateral reduced sensation in both feet. Reduced left foot dorsiflexion. Intact position sense of toes bilaterally General: patient oriented x3 Extrem Other: No active peripheral synovitis Neck pain with any range of motion Tenderness upon palpation of her neck posteriorly Positive straight leg raise test on the left Results Reviewed Results Reviewed: Laboratory Tests 12/13/22 12/13/22 12/13/22 11:14 11:14 11:14 12/13/22 12/13/22 12/13/22 11:14 11:14 11:14 U e TB Test (T-Spot) Com Negative 12/13/22 12/13/22 11:14 11:14 [facility] [place] Addendum 01/10/2023 Findings: Expansile intramedullary T2 signal changes within the cervical spinal cord spanning the C3-C4 through C5-C6 level. The signal changes are described on outside MRI report however the images from the study are not available at the time of dictation to compare. No contrast was administered for the study. There are T2 signal changes throughout the anterior and posterior elements of C3-T1, there are T2 signal changes involving the 1st costovertebral junctions bilaterally, and there is mild prevertebral swelling at C3-T1 levels. Findings are also described an outside report and are at least in part present on a cervical spine MRI dated 10/14/2020. Findings could reflect osteomyelitis discitis or could reflect inflammatory arthritis given the patient's history of psoriatic arthritis. No epidural collection is appreciated and no drainable soft tissue fluid collections are seen. There was a 5 mm right thyroid lobe nodule that is below size criteria for sonographic of follow-up. Partially imaged advanced degenerative changes involving left sternoclavicular joint with associated T2 signal abnormality MR/MR head/brain wo/w con IMPRESSION: 1. Scattered nonenhancing white matter T2 hyperintensities in the cerebral hemispheres bilaterally as described above which are nonspecific findings but could reflect chronic ischemic microangiopathy. Demyelinating disease is considered less likely but not entirely excluded. ? 2. No intracranial mass lesion, pathologic enhancement, space-occupying process, mass effect, hemorrhage, or hydrocephalus. ? 3. T1 signal loss in the C4 vertebral body which is slightly more prominent than on the previous MRI. This is nonspecific. Recommend followup MRI of the cervical spine with contrast in 6 months to reassess this. Assessment & Plan Assessment & Plan (1) Psoriatic arthritis: Comment: 09/2020 treated for fibromyalgia 09/2020 MRI of the cervical spine showed changes consistent with active psoriatic arthritis as well as evidence of erosions. 11/2020 started on methotrexate- present 03/2021 started on Enbrel-11/2022 stopped due to active neck pain, and psoriasis. 12/2022- Humira with improvement of neck pain and psoriasis Code(s): L40.50 - Arthropathic psoriasis, unspecified Plan: This is a 62-year-old female who presents for psoriatic arthritis follow-up. Currently on methotrexate 20 mg weekly and Humira. Patient stated that Humira significantly helped her psoriasis. She continues to have neck pain however. More recently she has been having lower back pain that radiates to her left lower extremity. On exam she has reduced left foot dorsiflexion. Recent brain MRI shows multifocal white matter changes for which demyelinating changes are considered less likely. Will order L-spine MRI to evaluate her lumbar radiculopathy and left footdrop. Also order an EMG of lower extremities. Will DC TNF inhibitors at this point as patient continues to have neck pain and there is some suspicion for demyelinating disorder. Discussed risks and benefits of Cosentyx. Patient agreed to proceed. Will start prior authorization for Cosentyx. Labs today. Follow-up in 2 months (2) Fibromyalgia: Code(s): M79.7 - Fibromyalgia Plan: Stable. Continue amitriptyline, Cymbalta and baclofen at her current doses. Plan I spent 30 minutes reviewing patient's chart, evaluating patient, ordering diagnostic workup, counseling patient and documenting in the chart Orders: Orders Comprehensive Met. Panel Today L40.50 - Arthropathic psoriasis, unspecified C Reactive Protein Today L40.50 - Arthropathic psoriasis, unspecified Complete Blood Count Auto Diff Today L40.50 - Arthropathic psoriasis, unspecified Erythrocyte Sedimentation Rate Today L40.50 - Arthropathic psoriasis, unspecified MR lumbar spine wo con Today M54.16 - Radiculopathy, lumbar region NE electromyogram (EMG) Today M21.372 - Foot drop, left foot Coding Level of Care Code Est Pt Level 4 (14045) Diagnoses Psoriatic arthritis L40.50 Fibromyalgia M79.7
== END 2023-04-19 12:55 | disposition home or self-care (01) ==
LOC: HO.RHE 11:58
PROVIDERS: PCP Internal Medicine; Visit Provider Student in an Organized Health Care Education/Training Program
DX: L40.50 Arthropathic psoriasis, unspecified (principal); M79.7 Fibromyalgia
CPT/HCPCS: 99214

== ENCOUNTER → 2023-04-19 11:58 | Outpatient (BNVA) | payer OTHER, SELFPAY | PROVIDERS: PCP Internal Medicine; Visit Provider Student in an Organized Health Care Education/Training Program | DX: L40.50 Arthropathic psoriasis, unspecified (principal); M79.7 Fibromyalgia; Z79.631 Long term (current) use of antimetabolite agent; Z79.899 Other long term (current) drug therapy | CPT/HCPCS: 99212 ==

== ENCOUNTER 2023-04-27 12:54 | Outpatient (REF) | payer OTHER, SELFPAY ==
--- NOTE | 2023-04-27 | EMG_ITS ---
Please see EMG / Nerve Conduction Report. MTDD
--- NOTE | 2023-04-27 13:00 | HO.EMG-NCS ---
Physiatry - EMG/NCS EMG/NCS Chief complaint: Chronic back pain, noted left foot drop in the clinic 2 weeks ago. Denies any feet numbness. No history of diabetes. History of psoriatic arthritis. Reason for referral: Evaluate for left footdrop Referred by: Dr. Lisa Asencio from Rheumatology Procedure done: Bilateral lower extremity NCS, left lower extremity needle EMG Precautions and/or limitations: None The limb temperature was monitored continuously and remained between 32-36 degrees C during the performance of the NCS. FINDINGS: Left peroneal motor recording EDB muscle showed prolonged distal latency, small amplitude but normal conduction velocity. When recording on TA muscle, conduction velocity was also normal. Right peroneal motor recording EDB muscle showed normal distal latency, small amplitude but normal conduction velocity. All other nerves tested were within normal. Concentric needle EMG was performed in selected muscles of the left lower extremity and lumbar paraspinals. Study did not reveal signs of electric abnormalities as shown in the table below. Nerve Conduction Studies Anti Sensory Summary Table ?Stim Site NR Onset (ms) Norm Onset (ms) Peak (ms) Norm Peak (ms) O-P Amp (?V) Norm O-P Amp Site1 Site2 Delta-0 (ms) Dist (cm) Eleazar (m/s) Norm Eleazar (m/s) Left Sural Anti Sensory (Lat Mall) Calf ? 2.0 2.9 <4.0 34.1 >5.0 Calf Lat Mall 2.0 14.0 70 Right Sural Anti Sensory (Lat Mall) Calf ? 3.0 3.3 <4.0 5.6 >5.0 Calf Lat Mall 3.0 14.0 47 Motor Summary Table ?Stim Site NR Onset (ms) Norm Onset (ms) O-P Amp (mV) Norm O-P Amp iAmp (mV) Amp (1st) (%) Site1 Site2 Delta-0 (ms) Dist (cm) Eleazar (m/s) Norm Eleazar (m/s) Left Peroneal Motor (Ext Dig Brev) Ankle ? 4.2 <4.0 0.6 >2.5 0.6 100.0 Ankle Ext Dig Brev 4.2 0.0 B Fib ? 8.4 0.6 0.6 100.0 B Fib Ankle 4.2 23.0 55 >40 Poplt ? 8.9 0.6 0.6 100.0 Poplt B Fib 0.5 4.0 80 >40 Right Peroneal Motor (Ext Dig Brev) Ankle ? 3.3 <4.0 0.8 >2.5 0.8 100.0 Ankle Ext Dig Brev 3.3 0.0 B Fib ? 8.4 0.8 0.8 100.0 B Fib Ankle 5.1 27.5 54 >40 Poplt ? 9.1 0.8 0.8 100.0 Poplt B Fib 0.7 4.0 57 >40 Left Peroneal TA Motor (Tib Ant) Fib Head ? 3.6 <4.2 3.2 3.7 100.0 Fib Head Tib Ant 3.6 0.0 Poplit ? 4.1 <5.7 3.2 3.8 100.0 Poplit Fib Head 0.5 4.0 80 >40.5 Left Tibial Motor (Abd Duarte Brev) Ankle ? 3.8 <5 10.4 >2.5 15.4 100.0 Ankle Abd Duarte Brev 3.8 0.0 Knee ? 10.2 9.2 12.4 88.5 Knee Ankle 6.4 33.0 52 >40 EMG+ ?Side Muscle Nerve Root Ins Act Fibs Psw Amp Dur Poly Recrt Int Pat Comment Left Add Hallucis Lateral Plantar S2-S3 Nml Nml Nml Nml Nml 0 Nml Complete Left Tib Anterior Fibular,? Deep Fibula... L4-L5 Nml Nml Nml Nml Nml 0 Nml Complete Left Fib Longus Fibular,? Superficial... L5-S1 Nml Nml Nml Nml Nml 0 Nml Complete Left Gastroc Tibial S1-S2 Nml Nml Nml Nml Nml 0 Nml Complete Left Vastus Med Femoral L2-L4 Nml Nml Nml Nml Nml 0 Nml Complete Left Lumbo Parasp (Upper) Rami L1-L2 Nml Nml Nml Left Lumbo Parasp (Mid) Rami L3-L4 Nml Nml Nml Left Lumbo Parasp (Lower) Rami L5-S1 Nml Nml Nml IMPRESSION: 1. This is an abnormal study. 2. 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 3. There is no electrodiagnostic evidence for tibial neuropathy. lumbosacral plexopathy, lumbar radiculopathy, or peripheral neuropathy. CLINICAL COMMENT: Findings above possibly from atrophied EDB muscle, commonly from chronic trauma related to shoe wear. No lumbar radiculopathy seen. Further clinical correlation recommended. Thank you for your kind referral. Renetta Munguia MD, ARMANDO Board Certified, [place] [employer] and Rehabilitation (ABPMR) Board Certified, [place] Board of Electrodiagnostic Medicine (ABEM)
== END 2023-04-27 12:55 | disposition home or self-care (01) ==
LOC: HO.NEURO 12:54
PROVIDERS: PCP Internal Medicine; Visit Provider Student in an Organized Health Care Education/Training Program
DX: Z13.89 Encounter for screening for other disorder (principal)
CPT/HCPCS: 95860; 95886; 95907; 95909

== ENCOUNTER → 2023-04-27 12:54 | Outpatient (BNV) | payer OTHER, SELFPAY | PROVIDERS: PCP Internal Medicine; Visit Provider Physical Medicine & Rehabilitation | DX: S84.11XA Injury of peroneal nerve at lower leg level, right leg, initial encounter (principal); S84.12XA Injury of peroneal nerve at lower leg level, left leg, initial encounter | CPT/HCPCS: 95886; 95909 ==

== ENCOUNTER 2023-06-20 11:06 | Outpatient (REF) | payer OTHER, SELFPAY ==
[2023-06-20 13:42] LABS: Basophils Absolute Auto 0.2 X10*3/uL (0.0-0.2); Basophils Percent Auto 1.2 % (0-2); Eosinophils Absolute Auto 0.2 X10*3/uL (0.0-0.4); Eosinophils Percent Auto 1.2 % (0-4); Hemoglobin 13.2 g/dl (12.0-16.0); Imm Gran Abs Auto 0.05 X10*3/uL (0.00-0.03); Imm Gran Pct Auto 0.3 % (0.0-0.4); Lymphocytes Absolute Auto 4.5 X10*3/uL (1.2-4.9); Lymphocytes Percent Auto 31.3 % (20-40); MANUAL DIFF FLAG SCAN; Mean Corpuscular HGB Conc 32.2 g/dl (31.0-35.0); Mean Corpuscular Hemoglobin 29.4 pg (27.0-33.0); Mean Corpuscular Volume 91.3 fL (80.0-98.0); Mean Platelet Volume 10.1 fL (9.4-12.3); Monocytes Absolute Auto 1.3 X10*3/uL (0.1-1.2); Monocytes Percent Auto 9.1 % (2-11); Neutrophils Absolute Auto 8.2 x10*3/uL (2.0-8.3); Neutrophils Percent Auto 56.9 % (45-73); Platelet Count 325 X10*3/uL (160-400); Red Blood Count 4.49 X10*6/uL (4.20-5.50); Red Cell Distribution Width 14.2 % (11.0-16.0); SCAN SMEAR FLAG 1; White Blood Count 14.4 X10*3/uL (4.8-10.8)
[2023-06-20 13:55] LABS: Alanine Aminotransferase 16 U/L (0-31); Albumin Level 3.9 g/dL (3.5-5.0); Alkaline Phosphatase 106 U/L (39-117); Anion Gap 10 (12-20); Aspartate Amino Transferase 18 U/L (5-31); Bilirubin Total 0.2 mg/dL (0.0-1.0); Blood Urea Nitrogen 16 mg/dL (9-16); C Reactive Protein 0.45 mg/dL (< or = 0.50); Calcium 9.3 mg/dL (8.4-10.2); Carbon Dioxide 27 mmol/L (22-29); Chloride 106 mmol/L (96-108); Estimated Glomerular Filt Rate > 60; Glucose Random 77 mg/dL (60-115); Iron 81 mcg/dL (30-160); Percent Iron Saturation 29 % (15-50); Potassium 3.7 mmol/L (3.3-5.1); Sodium 139 mmol/L (135-145); Total Iron Binding Capacity 280 mcg/dL (228-428); Total Protein 7.3 g/dL (6.5-8.0); Unsaturated Iron Binding 199 ug/dL
[2023-06-20 14:05] LABS: Ferritin 94 ng/mL (10-250)
[2023-06-20 14:27] LABS: Erythrocyte Sedimentation Rate 16 MM/HR (0-20); SLIDE REVIEW VERIFIED
[2023-06-22 15:53] LABS: Transferrin 252 mg/dL (188-341)
== END 2023-06-20 11:07 | disposition home or self-care (01) ==
LOC: HO.10HDL 11:06
PROVIDERS: Nurse Practitioner Family; Visit Provider Student in an Organized Health Care Education/Training Program
DX: D64.9 Anemia, unspecified (principal); L40.50 Arthropathic psoriasis, unspecified
CPT/HCPCS: 36415; 80053; 82728; 83540; 84466; 85025; 85652; 86140

== ENCOUNTER 2023-06-21 11:02 | Outpatient (AMB) | payer OTHER, SELFPAY ==
[2023-06-21 11:25] VITALS: BP 116/72; PULSE 86; RESP 16; TEMP 36.6; O2SAT 98
--- NOTE | 2023-06-21 11:25 | A.OFFVIS_ITS ---
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 Allergies No Known Allergies [No Known Allergies*] Allergy (Verified 06/21/23 11:28) Medication List - Last Reconciled 06/21/23 by Prema Asencio MD albuterol sulfate 90 mcg/actuation 2 puffs inhalation Q4-6H PRN amitriptyline 50 mg (2 x 25 mg) PO BEDTIME 30 days atorvastatin 40 mg PO BEDTIME 90 days baclofen 10 mg PO TID PRN budesonide-formoterol 80-4.5 mcg/actuation (Symbicort) 2 puffs inhalation BID buspirone 5 mg PO BID 30 days mdpmxwzplk-upejbvohpclje-advh 50-325-40 mg 1 tab PO Q4H PRN 30 days cholecalciferol (vitamin D3) 50 mcg PO DAILY docusate sodium 100 mg PO DAILY PRN duloxetine 60 mg PO DAILY 30 days ferrous sulfate 325 mg PO DAILY 30 days folic acid 1 mg PO DAILY ixekizumab (Taltz Autoinjector) 160 mg (2 pens) at week 0 then 80 at week 4 & every 4 weeks thereafter methotrexate sodium 20 mg (8 x 2.5 mg) PO QWEEK vfhimxzb-xafyfrara-BO 3.5-10,000-1 mg/mL-unit/mL-% 4 drps otic (ear) right Q8H 10 days omega 2-doh-scy-fish oil 1,000 mg (120 mg-180 mg) 1 cap PO DAILY omeprazole 20 mg PO DAILY sulindac 200 mg PO DAILY tramadol 50 mg PO Q6H zolpidem (Ambien) 10 mg PO BEDTIME PRN 30 days HPI HPI Comments History of Present Illness Details This is a 62-year-old female with psoriatic arthritis who presents for follow-up. She is currently on methotrexate 20 mg once weekly and Taltz. She stated that the initial loading dose she only used 1 syringe, the other Syringe was ruined and essentially she only received 80 mg as a loading dose, then used another Taltz injection a month later. She states that she feels well overall. Continues to have neck stiffness but no pain. Her psoriasis rash is about the same. States that over the last week she has been noticing pusy secretions coming out of her right ear. REPLACED BY [facility] Medical History Anemia Transverse myelitis Cubital tunnel syndrome on left Fibromyalgia Surgical History H/O carpal tunnel repair Social History Alcohol intake: never Patient Tobacco Use Status: Current everyday Tobacco user Tobacco use type: Cigarette Cigarettes Per Day: 20 Years Smoked: 39 e-Cigarette/Vaping Use: Never Used Review of Systems ENT Reports neck pain Musc Reports back pain, Reports neck pain and Reports radiating pain into limb Skin/Breast Reports rash Physical Exam Vital Signs: Last Vital Signs Temp 97.9 F 06/21/23 11:25 Pulse 86 06/21/23 11:25 Resp 16 06/21/23 11:25 BP 116/72 06/21/23 11:25 Pulse Ox 98 06/21/23 11:25 Oxygen Delivery Method Room Air 06/21/23 11:25 Const General: cooperative, healthy appearing and comfortable Nutritional Appearance: average body habitus Orientation/consciousness: patient oriented x3 Limitations: no limitations HEENT Head: Yes normocephalic and Yes atraumatic Mouth: moist mucous membranes Resp Effort & Inspection: normal respiratory effort and able to speak in complete sentences Auscultation: clear to auscultation bilaterally Cardio Rate: regular rate Rhythm: regular rhythm Skin Other: Few areas of dry skin psoriatic lesions on palms and soles of feet Neuro Other: Bilateral reduced sensation in both feet. No footdrop bilaterally today General: patient oriented x3 Extrem Other: No active peripheral synovitis Reduced neck range of motion No tenderness upon palpation of her neck Results Reviewed Results Reviewed: Laboratory Tests 12/13/22 12/13/22 12/13/22 11:14 11:14 11:14 U e TB Test (T-Spot) Com Negative 12/13/22 12/13/22 11:14 11:14 [facility] [place] Addendum 01/10/2023 Findings: Expansile intramedullary T2 signal changes within the cervical spinal cord spanning the C3-C4 through C5-C6 level. The signal changes are described on outside MRI report however the images from the study are not available at the time of dictation to compare. No contrast was administered for the study. There are T2 signal changes throughout the anterior and posterior elements of C3-T1, there are T2 signal changes involving the 1st costovertebral junctions bilaterally, and there is mild prevertebral swelling at C3-T1 levels. Findings are also described an outside report and are at least in part present on a cervical spine MRI dated 10/14/2020. Findings could reflect osteomyelitis discitis or could reflect inflammatory arthritis given the patient's history of psoriatic arthritis. No epidural collection is appreciated and no drainable soft tissue fluid collections are seen. There was a 5 mm right thyroid lobe nodule that is below size criteria for sonographic of follow-up. Partially imaged advanced degenerative changes involving left sternoclavicular joint with associated T2 signal abnormality MR/MR head/brain wo/w con IMPRESSION: 1. Scattered nonenhancing white matter T2 hyperintensities in the cerebral hemispheres bilaterally as described above which are nonspecific findings but could reflect chronic ischemic microangiopathy. Demyelinating disease is considered less likely but not entirely excluded. ? 2. No intracranial mass lesion, pathologic enhancement, space-occupying process, mass effect, hemorrhage, or hydrocephalus. ? 3. T1 signal loss in the C4 vertebral body which is slightly more prominent than on the previous MRI. This is nonspecific. Recommend followup MRI of the cervical spine with contrast in 6 months to reassess this. Assessment & Plan Assessment & Plan (1) Psoriatic arthritis: Comment: 09/2020 treated for fibromyalgia 09/2020 MRI of the cervical spine showed changes consistent with active psoriatic arthritis as well as evidence of erosions. 11/2020 started on methotrexate- present 03/2021 started on Enbrel-11/2022 stopped due to active neck pain, and psoriasis. 12/2022- Humira with improvement of neck pain and psoriasis - DC 04/2023 due to concern for spinal transverse myelitis taltz 04/2023 effective Code(s): L40.50 - Arthropathic psoriasis, unspecified Plan: This is a 62-year-old female who presents for psoriatic arthritis follow-up. Currently on methotrexate 20 mg weekly and taltz. Fortunately patient was able to inject 1 Taltz syringe for her loading dose, she ruined the other see range. She was not able to use it correctly. She did the 2nd injection a month later normally. I would like patient to complete her Taltz loading dose. I Like to give 2 syringes (160 mg total) for the next injection then continue to use 80 mg monthly Labs before next visit in 3 months (2) Fibromyalgia: Code(s): M79.7 - Fibromyalgia Plan: Stable. Continue amitriptyline, Cymbalta and baclofen at her current doses. (3) Lumbar back pain with radiculopathy affecting left lower extremity: Code(s): M54.16 - Radiculopathy, lumbar region Plan: Continues to have left lower back pain intermittent radiation to the left foot. EMG showed no signs suggestive of radiculopathy. L-spine MRI is pending (4) Otitis externa of right ear: Code(s): H60.91 - Unspecified otitis externa, right ear Qualifiers: Otitis externa type: other infective Chronicity: acute Qualified Code(s): H60.391 - Other infective otitis externa, right ear Plan: start antibiotic +steroid ear drops Plan I spent 45 minutes reviewing patient's chart, evaluating patient, ordering diagnostic workup, counseling patient and documenting in the chart Medications: New sdhibnlm-akdgzqnwq-RE 3.5-10,000-1 mg/mL-unit/mL-% 4 drps otic (ear) right Q8H 10 mL 1RF 10 days Coding Level of Care Code Est Pt Level 5 (17330) Diagnoses Psoriatic arthritis L40.50 Fibromyalgia M79.7 Lumbar back pain with radiculopathy affecting left lower extremity M54.16 Other infective acute otitis externa of right ear H60.391 Otitis externa type: other infective Chronicity: acute
== END 2023-06-21 12:04 | disposition home or self-care (01) ==
PROVIDERS: PCP Internal Medicine; Visit Provider Student in an Organized Health Care Education/Training Program
DX: L40.50 Arthropathic psoriasis, unspecified (principal); M79.7 Fibromyalgia; M54.16 Radiculopathy, lumbar region; H60.391 Other infective otitis externa, right ear
CPT/HCPCS: 99215

== ENCOUNTER → 2023-06-21 11:02 | Outpatient (BNVA) | payer OTHER, SELFPAY | PROVIDERS: PCP Internal Medicine; Visit Provider Student in an Organized Health Care Education/Training Program | DX: L40.50 Arthropathic psoriasis, unspecified (principal); M79.7 Fibromyalgia; M54.16 Radiculopathy, lumbar region; G37.3 Acute transverse myelitis in demyelinating disease of central nervous system; H60.391 Other infective otitis externa, right ear; Z79.631 Long term (current) use of antimetabolite agent | CPT/HCPCS: 99212 ==

== ENCOUNTER 2023-08-25 10:41 | Outpatient (AMB) | payer OTHER, SELFPAY ==
--- NOTE | 2023-08-25 10:43 | MHC.OFFVIS ---
Intake Vital Signs 08/25/23 10:48 BP 122/72 Blood Pressure Location Rt brachial Position Sitting Pulse 77 Pulse Source Pulse Oximeter Pulse Oximetry (%) 95 Oxygen Delivery Method Room Air Intake Visit Reasons: f/u appt per Rheumatology request-Conf Intake Note: Patient presents for follow up appointment. Allergies No Known Allergies [No Known Allergies*] Allergy (Verified 08/25/23 10:47) Medication List - Last Reconciled 08/25/23 by SILVIA Smith albuterol sulfate 90 mcg/actuation 2 puffs inhalation Q4-6H PRN amitriptyline 50 mg (2 x 25 mg) PO BEDTIME 30 days atorvastatin 40 mg PO BEDTIME 90 days baclofen 10 mg PO TID PRN budesonide-formoterol 80-4.5 mcg/actuation (Symbicort) 2 puffs inhalation BID buspirone 5 mg PO BID 30 days bpfcuzcfik-ildabqacvpjdq-fjgv 50-325-40 mg 1 tab PO Q4H PRN 30 days cholecalciferol (vitamin D3) 50 mcg PO DAILY docusate sodium 100 mg PO DAILY PRN duloxetine 60 mg PO DAILY 30 days ferrous sulfate 325 mg PO DAILY 30 days folic acid 1 mg PO DAILY ixekizumab (Taltz Autoinjector) restarting loading dose 160 mg (2 pens) at week 0 then 80 at week 4 & every 4 weeks thereafter methotrexate sodium 20 mg (8 x 2.5 mg) PO QWEEK mgskyzwk-mgoynqpip-EI 3.5-10,000-1 mg/mL-unit/mL-% 4 drps otic (ear) right Q8H 10 days omega 5-kvi-udg-fish oil 1,000 mg (120 mg-180 mg) 1 cap PO DAILY omeprazole 20 mg PO DAILY sulindac 200 mg PO DAILY tramadol 50 mg PO Q6H zolpidem (Ambien) 10 mg PO BEDTIME PRN 30 days HPI HPI Comments History of Present Illness Details 62-yr-old female presents for f/u visit. Pt denies any significant interval medical changes. She is having increased posterior cervical pain. Sometimes has tingling in arms if her arms are outstretched for some time. No arm weakness. She states she always has blurry vision. Denies diplopia. She has been having increased low back pain- scheduled for l-spine MRI on Monday. She is having a throbbing migraine a/w blurry vision, photophobia, phonophobia, some nausea. Frequency 2 x's per week. Unsure why she stopped Amitriptyline- but it was previously helpful. States that the Zolpidem still helps her to sleep. States that she cannot sleep at all w/o it. She was recently treated for Rt otitis externa- states the ear is still sore and has had thick white drng. [facility] Medical History Anemia Transverse myelitis Cubital tunnel syndrome on left Fibromyalgia Surgical History H/O carpal tunnel repair Social History Alcohol intake: never Patient Tobacco Use Status: Current everyday Tobacco user Tobacco use type: Cigarette Cigarettes Per Day: 20 Years Smoked: 39 e-Cigarette/Vaping Use: Never Used Review of Systems Const All systems reviewed & are unremarkable except as noted in HPI and below Physical Exam Vital Signs: Last Vital Signs Pulse 77 08/25/23 10:48 BP 122/72 08/25/23 10:48 Pulse Ox 95 08/25/23 10:48 Oxygen Delivery Method Room Air 08/25/23 10:48 Const General: cooperative and no acute distress Orientation/consciousness: patient oriented x3 HEENT Other: Rt ear- external canal- mild erythema, mild TM effussion Head: Yes normocephalic Ears: hearing grossly normal bilaterally Resp Effort & Inspection: normal respiratory effort and able to speak in complete sentences Neuro General: patient oriented x3, gait normal and CN's II-XI intact bilaterally Cognition (Neuro): normal cognition Motor exam (neuro): 5/5 motor strength present throughout Deep tendon reflexes (DTR's): Right triceps reflex intensity grade: 2+, Left triceps reflex intensity grade: 2+, Rt Biceps (C5, C6): 2+, Left biceps reflex intensity grade: 2+, Right brachioradialis reflex intensity grade: 2+, Left brachioradialis reflex intensity grade: 2+, Right patellar reflex intensity grade: 2+ and Left patellar reflex intensity grade: 2+ Psych Appearance: grossly normal Mental Status: mental status grossly normal Speech and movement: Normal speech and movement present Affect: normal affect Attitude: cooperative Thought process: Normal thought process present Thought content: Normal thought content present Insight: Good insight present (Psych) Judgement: Good judgement present (Psych) Assessment & Plan Assessment & Plan (1) Transverse myelitis: Comment: likely related to etanercept use with mild clinical symptoms Code(s): G37.3 - Acute transverse myelitis in demyelinating disease of central nervous system (2) Migraine with aura: Code(s): G43.109 - Migraine with aura, not intractable, without status migrainosus (3) Neck pain: Code(s): M54.2 - Cervicalgia (4) Otitis externa of right ear: Code(s): H60.91 - Unspecified otitis externa, right ear Qualifiers: Otitis externa type: other infective Chronicity: acute Qualified Code(s): H60.391 - Other infective otitis externa, right ear Plan For neck pain and abnormal c-spine imaging: Pt advised to undergo f/u c-spine MRI w/wo- to assess status of C-spine MRI findings of Intramedullary changes from C3-C6 c/w demyelination and brain MRI findings of T1 signal loss in the C4 vertebral body Check serum Aquaporin-4 AB. For migraine: Resume Amitriptyline up to 50mg qhs- may help neck apin as well Trial Naratriptan prn. Fioricet prn migraine. Previous tx trials- Sumatriptan- worsened headache. Future considerations- gepant. For sleep: May continue Ambien 10mg qhs prn. Pt advised to inform us w/ any signs of sleepwalking. Carpal tunnel wrist splints at night prn. For right externa otitis: Repeat neomycin-polymyxin gtts f/u in 3 months or sooner prn Orders: Orders MR cervical spine wo/w con Today G37.3 - Acute transverse myelitis in demyelinating disease of central nervous system, L40.50 - Arthropathic psoriasis, unspecified, M21.372 - Foot drop, left foot Other Ref Test - Misc Today G37.3 - Acute transverse myelitis in demyelinating disease of central nervous system Medications: New naratriptan take 1/2 - 1 tab at onset of headache; if no relief may repeat 1 tab after at least 4 hrs; max = 2 tabs/24 hrs orally PRN; 30 days 12 tabs 6RF migraine headache Refilled amitriptyline 50 mg (2 x 25 mg) PO BEDTIME 30 days 60 tabs 3RF xylhqgad-dcgqzdcrk-RS 3.5-10,000-1 mg/mL-unit/mL-% 4 drps otic (ear) right Q8H 10 days 10 mL 1RF Coding Level of Care Code Est Pt Level 4 (04448) Diagnoses Transverse myelitis G37.3 Migraine with aura G43.109 Neck pain M54.2 Other infective acute otitis externa of right ear H60.391 Otitis externa type: other infective Chronicity: acute
[2023-08-25 10:48] VITALS: BP 122/72; PULSE 77; O2SAT 95
== END 2023-08-25 11:15 | disposition home or self-care (01) ==
PROVIDERS: Visit Provider Nurse Practitioner Family
DX: G37.3 Acute transverse myelitis in demyelinating disease of central nervous system (principal); G43.109 Migraine with aura, not intractable, without status migrainosus; M54.2 Cervicalgia; H60.391 Other infective otitis externa, right ear
CPT/HCPCS: 99214

== ENCOUNTER → 2023-08-25 10:41 | Outpatient (BNVA) | payer OTHER, SELFPAY | PROVIDERS: Visit Provider Nurse Practitioner Family | DX: G43.109 Migraine with aura, not intractable, without status migrainosus (principal); G37.3 Acute transverse myelitis in demyelinating disease of central nervous system; M54.2 Cervicalgia; H60.391 Other infective otitis externa, right ear | CPT/HCPCS: 99212 ==

== ENCOUNTER 2023-08-28 12:43 | Outpatient (REF) | payer OTHER, SELFPAY ==
--- NOTE | ~2023-08-28 | MR_ITS ---
EXAMINATION: MR LUMBAR SPINE WITHOUT CONTRAST CLINICAL INFORMATION: Radiculopathy. COMPARISON: No relevant prior imaging. TECHNIQUE: MRI of the lumbar spine was obtained using routine sequences without contrast. FINDINGS: Alignment is normal. Vertebral body heights are preserved. No acute bone marrow signal changes. There is disc desiccation at multiple levels without substantial loss of intervertebral disc height. The tip of the conus medullaris is located at L1-L2. No mass effect on the conus. Visualized distal cord signal intensity is normal. At L1-L2 there is a slightly bulging disc. No canal stenosis. No mass effect on the traversing or foraminal nerve roots. At L2-L3 there is a slightly bulging disc. No canal stenosis. No mass effect on the traversing or foraminal nerve roots. At L3-L4 there is a bulging disc. No canal stenosis. No mass effect on the traversing or foraminal nerve roots. At L4-L5 there is a bulging disc. Bilateral facet degenerative change. No canal stenosis. No mass effect on the traversing or foraminal nerve roots. At L5-S1 there is a left subarticular protrusion superimposed upon a bulging disc. Bilateral facet degenerative change. No canal stenosis. There is asymmetric narrowing of the left subarticular zone causing displacement of the left traversing S1 nerve roots. No foraminal nerve root compression. Limited visualization of the retroperitoneal anatomy reveals well marginated benign-appearing cystic lesion at the lower pole of the left kidney. Psoas and paraspinal muscle groups are symmetric. MR/MR lumbar spine wo con IMPRESSION: There is disc degeneration at multiple levels within the lumbar spine. A left subarticular protrusion at L5-S1 causes displacement of the left traversing S1 nerve roots. Otherwise no substantial mass effect on the traversing or foraminal nerve roots elsewhere within the lumbar spine. No canal stenosis.
== END 2023-08-28 12:44 | disposition home or self-care (01) ==
LOC: HO.MRI 12:43
PROVIDERS: PCP Internal Medicine; Visit Provider Student in an Organized Health Care Education/Training Program
DX: M54.16 Radiculopathy, lumbar region (principal)
CPT/HCPCS: 72148

== ENCOUNTER 2023-09-21 10:18 | Outpatient (AMB) | payer OTHER, SELFPAY ==
[2023-09-21 10:23] VITALS: BP 102/60; PULSE 79; TEMP 35.7; O2SAT 95; BMI 23.5
--- NOTE | 2023-09-21 10:23 | MHC.OFFVIS ---
Intake Vital Signs 09/21/23 10:23 Height 4 ft 7 in Weight 101 lb 3.075 oz BMI 23.5 BP 102/60 Blood Pressure Location Rt brachial Position Sitting Pulse 79 Pulse Source Pulse Oximeter Temp 96.3 F L Temp Source Skin Pulse Oximetry (%) 95 Intake Visit Reasons: PsA Intake Note: Pt last seen 06/21/23 presents today for follow up. Continues to have ear pain. Requesting refills for mtx and folic acid Manager Balance Required: No Accompanied by: Self / Same As Patient Allergies No Known Allergies [No Known Allergies*] Allergy (Verified 09/21/23 10:27) Medication List - Last Reconciled 09/21/23 by Prema Asencio MD albuterol sulfate 90 mcg/actuation 2 puffs inhalation Q4-6H PRN amitriptyline 50 mg (2 x 25 mg) PO BEDTIME 30 days atorvastatin 40 mg PO BEDTIME 90 days baclofen 10 mg PO TID PRN budesonide-formoterol 80-4.5 mcg/actuation (Symbicort) 2 puffs inhalation BID buspirone 5 mg PO BID 30 days ftzqkzjsmw-hasizscvluozn-fyha 50-325-40 mg 1 tab PO Q4H PRN 30 days cholecalciferol (vitamin D3) 50 mcg PO DAILY docusate sodium 100 mg PO DAILY PRN duloxetine 60 mg PO DAILY 30 days ferrous sulfate 325 mg PO DAILY 30 days folic acid 1 mg PO DAILY ixekizumab (Taltz Autoinjector) 80 mg subcut Q4W methotrexate sodium 20 mg (8 x 2.5 mg) PO QWEEK naratriptan take 1/2 - 1 tab at onset of headache; if no relief may repeat 1 tab after at least 4 hrs; max = 2 tabs/24 hrs orally PRN; 30 days hyrkqymc-ajdacoqpm-HP 3.5-10,000-1 mg/mL-unit/mL-% 4 drps otic (ear) right Q8H 10 days omega 3-nnf-miq-fish oil 1,000 mg (120 mg-180 mg) 1 cap PO DAILY omeprazole 20 mg PO DAILY sulindac 200 mg PO DAILY tramadol 50 mg PO Q6H zolpidem (Ambien) 10 mg PO BEDTIME PRN 30 days HPI HPI Comments History of Present Illness Details This is a 62-year-old female with psoriatic arthritis who presents for follow-up. She is currently on methotrexate 20 mg once weekly and Taltz. Patient stated that she is doing well overall. During [place] time and new year's she was having nasal congestion, runny nose, secretions and crusting and blockage of her nose, discomfort in her face, , she felt that her sinuses were blocked. This is improving now. She states that she continues to have neck pain and lower back pain but it has not changed much. About a week ago she started having redness and pus exuding out of her left ring finger, it is improving now. [facility] Medical History Anemia Transverse myelitis Cubital tunnel syndrome on left Fibromyalgia Surgical History H/O carpal tunnel repair Social History Alcohol intake: never Patient Tobacco Use Status: Current everyday Tobacco user Tobacco use type: Cigarette Cigarettes Per Day: 20 Years Smoked: 39 e-Cigarette/Vaping Use: Never Used Review of Systems ENT Reports neck pain Musc Reports back pain, Reports neck pain and Reports radiating pain into limb Skin/Breast Reports rash Physical Exam Vital Signs: Last Vital Signs Temp 96.3 F L 09/21/23 10:23 Pulse 79 09/21/23 10:23 BP 102/60 09/21/23 10:23 Pulse Ox 95 09/21/23 10:23 BMI result Body Mass Index 23.5 Const General: cooperative, healthy appearing and comfortable Nutritional Appearance: average body habitus Orientation/consciousness: patient oriented x3 Limitations: no limitations HEENT Head: Yes normocephalic and Yes atraumatic Mouth: moist mucous membranes Resp Effort & Inspection: normal respiratory effort and able to speak in complete sentences Auscultation: clear to auscultation bilaterally Cardio Rate: regular rate Rhythm: regular rhythm Skin Other: Few areas of dry skin psoriatic lesions on palms and soles of feet Neuro Other: Bilateral reduced sensation in both feet. No footdrop bilaterally today General: patient oriented x3 Extrem Other: No active peripheral synovitis Reduced neck range of motion Mild erythema and minimal tenderness at the distal end of the left ring finger No tenderness upon palpation of her neck Results Reviewed Results Reviewed: Laboratory Tests 12/13/22 12/13/22 12/13/22 11:14 11:14 11:14 U e TB Test (T-Spot) Com Negative 12/13/22 12/13/22 11:14 11:14 [facility] [place] Addendum 01/10/2023 Findings: Expansile intramedullary T2 signal changes within the cervical spinal cord spanning the C3-C4 through C5-C6 level. The signal changes are described on outside MRI report however the images from the study are not available at the time of dictation to compare. No contrast was administered for the study. There are T2 signal changes throughout the anterior and posterior elements of C3-T1, there are T2 signal changes involving the 1st costovertebral junctions bilaterally, and there is mild prevertebral swelling at C3-T1 levels. Findings are also described an outside report and are at least in part present on a cervical spine MRI dated 10/14/2020. Findings could reflect osteomyelitis discitis or could reflect inflammatory arthritis given the patient's history of psoriatic arthritis. No epidural collection is appreciated and no drainable soft tissue fluid collections are seen. There was a 5 mm right thyroid lobe nodule that is below size criteria for sonographic of follow-up. Partially imaged advanced degenerative changes involving left sternoclavicular joint with associated T2 signal abnormality MR/MR head/brain wo/w con IMPRESSION: 1. Scattered nonenhancing white matter T2 hyperintensities in the cerebral hemispheres bilaterally as described above which are nonspecific findings but could reflect chronic ischemic microangiopathy. Demyelinating disease is considered less likely but not entirely excluded. ? 2. No intracranial mass lesion, pathologic enhancement, space-occupying process, mass effect, hemorrhage, or hydrocephalus. ? 3. T1 signal loss in the C4 vertebral body which is slightly more prominent than on the previous MRI. This is nonspecific. Recommend followup MRI of the cervical spine with contrast in 6 months to reassess this. Ordering Physician: Prema Asencio MD Date of Service: 08/28/23 Procedure(s): MR lumbar spine wo con Accession Number(s): [id number] cc: Heidi Chawla DO; Prema Asencio MD~ EXAMINATION: MR LUMBAR SPINE WITHOUT CONTRAST CLINICAL INFORMATION: Radiculopathy. COMPARISON: No relevant prior imaging. TECHNIQUE: MRI of the lumbar spine was obtained using routine sequences without contrast. FINDINGS: Alignment is normal. Vertebral body heights are preserved. No acute bone marrow signal changes. There is disc desiccation at multiple levels without substantial loss of intervertebral disc height. The tip of the conus medullaris is located at L1-L2. No mass effect on the conus. Visualized distal cord signal intensity is normal. At L1-L2 there is a slightly bulging disc. No canal stenosis. No mass effect on the traversing or foraminal nerve roots. At L2-L3 there is a slightly bulging disc. No canal stenosis. No mass effect on the traversing or foraminal nerve roots. At L3-L4 there is a bulging disc. No canal stenosis. No mass effect on the traversing or foraminal nerve roots. At L4-L5 there is a bulging disc. Bilateral facet degenerative change. No canal stenosis. No mass effect on the traversing or foraminal nerve roots. At L5-S1 there is a left subarticular protrusion superimposed upon a bulging disc. Bilateral facet degenerative change. No canal stenosis. There is asymmetric narrowing of the left subarticular zone causing displacement of the left traversing S1 nerve roots. No foraminal nerve root compression. Limited visualization of the retroperitoneal anatomy reveals well marginated benign-appearing cystic lesion at the lower pole of the left kidney. Psoas and paraspinal muscle groups are symmetric. MR/MR lumbar spine wo con IMPRESSION: There is disc degeneration at multiple levels within the lumbar spine. A left subarticular protrusion at L5-S1 causes displacement of the left traversing S1 nerve roots. Otherwise no substantial mass effect on the traversing or foraminal nerve roots elsewhere within the lumbar spine. No canal stenosis. Assessment & Plan Assessment & Plan (1) Psoriatic arthritis: Comment: 09/2020 treated for fibromyalgia 09/2020 MRI of the cervical spine showed changes consistent with active psoriatic arthritis as well as evidence of erosions. 11/2020 started on methotrexate- present 03/2021 started on Enbrel-11/2022 stopped due to active neck pain, and psoriasis. 12/2022- Humira with improvement of neck pain and psoriasis - DC 04/2023 due to concern for spinal transverse myelitis nicolasa 04/2023 effective Code(s): L40.50 - Arthropathic psoriasis, unspecified Plan: This is a 62-year-old female who presents for psoriatic arthritis follow-up. Currently on methotrexate 20 mg weekly and taltz. Doing well. Continue current medications, but hold Taltz and methotrexate for 1-2 weeks until paronychia of left ring finger resolved Labs today and before next visit in 3 months (2) Fibromyalgia: Code(s): M79.7 - Fibromyalgia Plan: Stable. Continue amitriptyline, Cymbalta and baclofen at her current doses. (3) Lumbar back pain with radiculopathy affecting left lower extremity: Code(s): M54.16 - Radiculopathy, lumbar region Plan: L-spine MRI showed findings of degenerative disc disease. I discussed pain management referral versus PT. Patient prefers pain management evaluation. Referred patient to pain management (4) Paronychia of finger of left hand: Code(s): L03.012 - Cellulitis of left finger Plan: Started about a week ago and is resolving on exam. Advised patient to postpone Taltz by 1-2 weeks and hold methotrexate by 1-2 weeks until it resolves (5) [facility] methotrexate user: Code(s): Z79.631 - buttermaker continuous churn (current) use of antimetabolite agent Plan: Monitor safety labs Plan I spent 45 minutes reviewing patient's chart, evaluating patient, ordering diagnostic workup, counseling patient and documenting in the chart Orders: Orders Erythrocyte Sedimentation Rate 3 Months Z79.631 - buttermaker continuous churn (current) use of antimetabolite agent Complete Blood Count Auto Diff Today Z79.631 - [facility] (current) use of antimetabolite agent Comprehensive Met. Panel Today Z79.631 - buttermaker continuous churn (current) use of antimetabolite agent C Reactive Protein Today Z79.631 - buttermaker continuous churn (current) use of antimetabolite agent Erythrocyte Sedimentation Rate Today Z79.631 - [facility] (current) use of antimetabolite agent Complete Blood Count Auto Diff 3 Months Z79.631 - [facility] (current) use of antimetabolite agent Comprehensive Met. Panel 3 Months Z79.631 - [facility] (current) use of antimetabolite agent C Reactive Protein 3 Months Z79.631 - buttermaker continuous churn (current) use of antimetabolite agent Referrals Pain Management Referral M54.16 - Radiculopathy, lumbar region Medications: Changed From ixekizumab (Taltz Autoinjector) 80 mg subcut Q4W To Taltz Autoinjector (ixekizumab) 80 mg subcut Q4W 1 mL 2RF NS Refilled folic acid 1 mg PO DAILY 90 tabs 1RF methotrexate sodium 20 mg (8 x 2.5 mg) PO QWEEK 32 tabs 2RF L40.50 - Arthropathic psoriasis, unspecified Coding Level of Care Code Est Pt Level 5 (34186) Diagnoses Psoriatic arthritis L40.50 Fibromyalgia M79.7 Lumbar back pain with radiculopathy affecting left lower extremity M54.16 Paronychia of finger of left hand L03.012 buttermaker continuous churn methotrexate user Z79.631
== END 2023-09-21 10:48 | disposition home or self-care (01) ==
PROVIDERS: PCP Internal Medicine; Visit Provider Student in an Organized Health Care Education/Training Program
DX: L40.50 Arthropathic psoriasis, unspecified (principal); M79.7 Fibromyalgia; M54.16 Radiculopathy, lumbar region; L03.012 Cellulitis of left finger; Z79.631 Long term (current) use of antimetabolite agent
CPT/HCPCS: 99215

== ENCOUNTER → 2023-09-21 10:18 | Outpatient (BNVA) | payer OTHER, SELFPAY | PROVIDERS: PCP Internal Medicine; Visit Provider Student in an Organized Health Care Education/Training Program | DX: L40.50 Arthropathic psoriasis, unspecified (principal); M79.7 Fibromyalgia; M54.16 Radiculopathy, lumbar region; L03.012 Cellulitis of left finger; Z79.631 Long term (current) use of antimetabolite agent | CPT/HCPCS: 99212 ==

== ENCOUNTER 2023-12-27 10:34 | Outpatient (AMB) | payer OTHER, SELFPAY ==
[2023-12-27 10:52] VITALS: BP 104/60; PULSE 82; O2SAT 98; BMI 23.1
--- NOTE | 2023-12-27 10:52 | A.OFFVIS_ITS ---
Intake Vital Signs 12/27/23 10:52 Height 4 ft 7 in Weight 99 lb 6.856 oz BMI 23.1 BP 104/60 Blood Pressure Location Rt brachial Position Sitting Pulse 82 Pulse Source Pulse Oximeter Pulse Oximetry (%) 98 Oxygen Delivery Method Room Air Intake Visit Reasons: PsA Intake Note: Patient last seen 09/21/23 presents today for follow up and test results. Did not complete labs Quality Assurance Inspector Required: No Accompanied by: Self / Same As Patient Allergies No Known Allergies [No Known Allergies*] Allergy (Verified 12/27/23 10:53) Medication List - Last Reconciled 12/27/23 by Prema Asencio MD albuterol sulfate 90 mcg/actuation 2 puffs inhalation Q4-6H PRN amitriptyline 50 mg (2 x 25 mg) PO BEDTIME 30 days atorvastatin 40 mg PO BEDTIME 90 days baclofen 10 mg PO TID PRN budesonide-formoterol 80-4.5 mcg/actuation (Symbicort) 2 puffs inhalation BID buspirone 5 mg PO BID 30 days tsuqnqscim-hjnkzdkyklnvh-efag 50-325-40 mg 1 tab PO Q4H PRN 30 days cholecalciferol (vitamin D3) 50 mcg PO DAILY docusate sodium 100 mg PO DAILY PRN duloxetine 60 mg PO DAILY 30 days ferrous sulfate 325 mg PO DAILY 30 days folic acid 1 mg PO DAILY methotrexate sodium 20 mg (8 x 2.5 mg) PO QWEEK naratriptan take 1/2 - 1 tab at onset of headache; if no relief may repeat 1 tab after at least 4 hrs; max = 2 tabs/24 hrs orally PRN; 30 days sliufibh-cskcrijev-QL 3.5-10,000-1 mg/mL-unit/mL-% 4 drps otic (ear) right Q8H 10 days omega 9-jax-qta-fish oil 1,000 mg (120 mg-180 mg) 1 cap PO DAILY omeprazole 20 mg PO DAILY sulindac 200 mg PO DAILY Taltz Autoinjector (ixekizumab) 80 mg subcut Q4W NS tramadol 50 mg PO Q6H zolpidem (Ambien) 10 mg PO BEDTIME PRN 30 days HPI HPI Comments History of Present Illness Details This is a 63-year-old female with psoriatic arthritis who presents for follow-up. She is currently on methotrexate 20 mg once weekly and Taltz 80 mg every 4 weeks She states that she is doing about the same overall. She continues to have significant neck and low back stiffness. Back is at night. She has noticed significant limited range of motion of her neck. Continues to have psoriasis patches on her hands. She picks at them and sometimes they bleed. She does not have any swollen joints. [facility] Medical History Anemia Transverse myelitis Cubital tunnel syndrome on left Fibromyalgia Surgical History H/O carpal tunnel repair Social History Alcohol intake: never Patient Tobacco Use Status: Current everyday Tobacco user Tobacco use type: Cigarette Cigarettes Per Day: 20 Years Smoked: 39 e-Cigarette/Vaping Use: Never Used Female Reproductive History Menstrual Total pregnancies: 5 Full term: 4 Number of Living Children: 3 Ectopics: 1 Review of Systems ENT Reports neck pain Musc Reports back pain, Reports neck pain and Reports radiating pain into limb Skin/Breast Reports rash Physical Exam Vital Signs: Last Vital Signs Pulse 82 12/27/23 10:52 BP 104/60 12/27/23 10:52 Pulse Ox 98 12/27/23 10:52 Oxygen Delivery Method Room Air 12/27/23 10:52 BMI result Body Mass Index 23.1 Const General: cooperative, healthy appearing and comfortable Nutritional Appearance: average body habitus Orientation/consciousness: patient oriented x3 Limitations: no limitations HEENT Head: Yes normocephalic and Yes atraumatic Mouth: moist mucous membranes Resp Effort & Inspection: normal respiratory effort and able to speak in complete sentences Auscultation: clear to auscultation bilaterally Cardio Rate: regular rate Rhythm: regular rhythm Skin Other: Psoriasis patches on both hands, more severe on the left, few open lesions Neuro Other: Bilateral reduced sensation in both feet. No footdrop bilaterally today General: patient oriented x3 Extrem Other: No active peripheral synovitis Significantly reduced neck range of motion and James test 10-15 cm Normal lateral flexion test No tenderness upon palpation of her neck Results Reviewed Results Reviewed: Laboratory Tests 12/13/22 12/13/22 12/13/22 11:14 11:14 11:14 U e TB Test (T-Spot) Com Negative 12/13/22 12/13/22 11:14 11:14 [facility] [place] Addendum 01/10/2023 Findings: Expansile intramedullary T2 signal changes within the cervical spinal cord spanning the C3-C4 through C5-C6 level. The signal changes are described on outside MRI report however the images from the study are not available at the time of dictation to compare. No contrast was administered for the study. There are T2 signal changes throughout the anterior and posterior elements of C3-T1, there are T2 signal changes involving the 1st costovertebral junctions bilaterally, and there is mild prevertebral swelling at C3-T1 levels. Findings are also described an outside report and are at least in part present on a cervical spine MRI dated 10/14/2020. Findings could reflect osteomyelitis discitis or could reflect inflammatory arthritis given the patient's history of psoriatic arthritis. No epidural collection is appreciated and no drainable soft tissue fluid collections are seen. There was a 5 mm right thyroid lobe nodule that is below size criteria for sonographic of follow-up. Partially imaged advanced degenerative changes involving left sternoclavicular joint with associated T2 signal abnormality MR/MR head/brain wo/w con IMPRESSION: 1. Scattered nonenhancing white matter T2 hyperintensities in the cerebral hemispheres bilaterally as described above which are nonspecific findings but could reflect chronic ischemic microangiopathy. Demyelinating disease is considered less likely but not entirely excluded. ? 2. No intracranial mass lesion, pathologic enhancement, space-occupying process, mass effect, hemorrhage, or hydrocephalus. ? 3. T1 signal loss in the C4 vertebral body which is slightly more prominent than on the previous MRI. This is nonspecific. Recommend followup MRI of the cervical spine with contrast in 6 months to reassess this. Ordering Physician: Prema Asencio MD Date of Service: 08/28/23 Procedure(s): MR lumbar spine wo con Accession Number(s): [id number] cc: Heidi Chawla DO; Prema Asencio MD~ EXAMINATION: MR LUMBAR SPINE WITHOUT CONTRAST CLINICAL INFORMATION: Radiculopathy. COMPARISON: No relevant prior imaging. TECHNIQUE: MRI of the lumbar spine was obtained using routine sequences without contrast. FINDINGS: Alignment is normal. Vertebral body heights are preserved. No acute bone marrow signal changes. There is disc desiccation at multiple levels without substantial loss of intervertebral disc height. The tip of the conus medullaris is located at L1-L2. No mass effect on the conus. Visualized distal cord signal intensity is normal. At L1-L2 there is a slightly bulging disc. No canal stenosis. No mass effect on the traversing or foraminal nerve roots. At L2-L3 there is a slightly bulging disc. No canal stenosis. No mass effect on the traversing or foraminal nerve roots. At L3-L4 there is a bulging disc. No canal stenosis. No mass effect on the traversing or foraminal nerve roots. At L4-L5 there is a bulging disc. Bilateral facet degenerative change. No canal stenosis. No mass effect on the traversing or foraminal nerve roots. At L5-S1 there is a left subarticular protrusion superimposed upon a bulging disc. Bilateral facet degenerative change. No canal stenosis. There is asymmetric narrowing of the left subarticular zone causing displacement of the left traversing S1 nerve roots. No foraminal nerve root compression. Limited visualization of the retroperitoneal anatomy reveals well marginated benign-appearing cystic lesion at the lower pole of the left kidney. Psoas and paraspinal muscle groups are symmetric. MR/MR lumbar spine wo con IMPRESSION: There is disc degeneration at multiple levels within the lumbar spine. A left subarticular protrusion at L5-S1 causes displacement of the left traversing S1 nerve roots. Otherwise no substantial mass effect on the traversing or foraminal nerve roots elsewhere within the lumbar spine. No canal stenosis. Assessment & Plan Assessment & Plan (1) Psoriatic arthritis: Comment: 09/2020 treated for fibromyalgia 09/2020 MRI of the cervical spine showed changes consistent with active psoriatic arthritis as well as evidence of erosions. 11/2020 started on methotrexate- present 03/2021 started on Enbrel-11/2022 stopped due to active neck pain, and psoriasis. 12/2022- Humira with improvement of neck pain and psoriasis - DC 04/2023 due to concern for spinal transverse myelitis taltz 04/2023 Code(s): L40.50 - Arthropathic psoriasis, unspecified Plan: This is a 63-year-old female who presents for psoriatic arthritis follow-up. Currently on methotrexate 20 mg weekly and taltz 80 mg every 4 weeks. Patient has been on Taltz regularly since 04/2023 she continues to have ongoing axial symptoms. She has significantly limited range of motion of her neck. Will need to switch DMARDs. Discussed Rinvoq versus an [place] 17 infusions such as Cosentyx. Will proceed with Cosentyx infusions continue with methotrexate 20 mg weekly Continue with folic acid Labs today and before next visit in 3 months (2) Fibromyalgia: Code(s): M79.7 - Fibromyalgia Plan: Stable. Continue amitriptyline, Cymbalta and baclofen at her current doses. (3) Lumbar back pain with radiculopathy affecting left lower extremity: Code(s): M54.16 - Radiculopathy, lumbar region Plan: L-spine MRI showed findings of degenerative disc disease. 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 Panel 3 Months L40.50 - Arthropathic psoriasis, unspecified, Z79.631 - cash management clerk (current) use of antimetabolite agent Erythrocyte Sedimentation Rate 3 Months L40.50 - Arthropathic psoriasis, unspecified, Z79.631 - cash management clerk (current) use of antimetabolite agent Complete Blood Count Auto Diff 3 Months L40.50 - Arthropathic psoriasis, unspecified, Z79.631 - cash management clerk (current) use of antimetabolite agent C Reactive Protein 3 Months L40.50 - Arthropathic psoriasis, unspecified, Z79.631 - senior care (current) use of antimetabolite agent Coding Level of Care Code Est Pt Level 4 (72713) Diagnoses Psoriatic arthritis L40.50 Fibromyalgia M79.7 Lumbar back pain with radiculopathy affecting left lower extremity M54.16 senior care methotrexate user Z79.631
== END 2023-12-27 11:18 | disposition home or self-care (01) ==
PROVIDERS: PCP Internal Medicine; Visit Provider Student in an Organized Health Care Education/Training Program
DX: L40.50 Arthropathic psoriasis, unspecified (principal); M79.7 Fibromyalgia; M54.16 Radiculopathy, lumbar region; Z79.631 Long term (current) use of antimetabolite agent
CPT/HCPCS: 99214

== ENCOUNTER → 2023-12-27 10:34 | Outpatient (BNVA) | payer OTHER, SELFPAY | PROVIDERS: PCP Internal Medicine; Visit Provider Student in an Organized Health Care Education/Training Program | DX: L40.50 Arthropathic psoriasis, unspecified (principal); M79.7 Fibromyalgia; M54.16 Radiculopathy, lumbar region; Z79.631 Long term (current) use of antimetabolite agent | CPT/HCPCS: 99212 ==

== ENCOUNTER 2024-01-25 12:03 | Outpatient (REF) | payer OTHER, SELFPAY ==
[2024-01-25 13:17] LABS: Basophils Absolute Auto 0.1 X10*3/uL (0.0-0.2); Basophils Percent Auto 1.2 % (0-2); Eosinophils Absolute Auto 0.1 X10*3/uL (0.0-0.4); Hematocrit 39.3 % (37.0-47.0); Hemoglobin 12.9 g/dl (12.0-16.0); Imm Gran Abs Auto 0.04 X10*3/uL (0.00-0.03); Imm Gran Pct Auto 0.3 % (0.0-0.4); Lymphocytes Percent Auto 33.5 % (20-40); MANUAL DIFF FLAG SCAN; Mean Corpuscular HGB Conc 32.8 g/dl (31.0-35.0); Mean Corpuscular Hemoglobin 29.2 pg (27.0-33.0); Mean Corpuscular Volume 88.9 fL (80.0-98.0); Mean Platelet Volume 9.5 fL (9.4-12.3); Monocytes Percent Auto 8.4 % (2-11); Neutrophils Absolute Auto 6.6 x10*3/uL (2.0-8.3); Neutrophils Percent Auto 55.6 % (45-73); Platelet Count 470 X10*3/uL (160-400); Red Blood Count 4.42 X10*6/uL (4.20-5.50); Red Cell Distribution Width 14.3 % (11.0-16.0); SCAN SMEAR FLAG 1; White Blood Count 11.9 X10*3/uL (4.8-10.8)
[2024-01-25 13:33] LABS: Alanine Aminotransferase 10 U/L (0-31); Albumin Level 3.8 g/dL (3.5-5.0); Alkaline Phosphatase 139 U/L (39-117); Anion Gap 13 (12-20); Aspartate Amino Transferase 13 U/L (5-31); Bilirubin Total 0.2 mg/dL (0.0-1.0); Blood Urea Nitrogen 10 mg/dL (9-16); C Reactive Protein 2.96 mg/dL (< or = 0.50); Calcium 9.4 mg/dL (8.4-10.2); Carbon Dioxide 25 mmol/L (22-29); Chloride 104 mmol/L (96-108); Estimated Glomerular Filt Rate > 60; Glucose Random 84 mg/dL (60-115); Potassium 3.8 mmol/L (3.3-5.1); Sodium 138 mmol/L (135-145); Total Protein 8.3 g/dL (6.5-8.0)
[2024-01-25 13:44] LABS: SLIDE REVIEW VERIFIED
[2024-01-25 14:03] LABS: Erythrocyte Sedimentation Rate 72 MM/HR (0-20)
== END 2024-01-25 12:04 | disposition home or self-care (01) ==
LOC: HO.10HDL 12:03
PROVIDERS: Visit Provider Student in an Organized Health Care Education/Training Program
DX: Z79.631 Long term (current) use of antimetabolite agent (principal)
CPT/HCPCS: 36415; 80053; 85025; 85652; 86140

== ENCOUNTER 2024-03-22 11:35 | Outpatient (AMB) | payer OTHER, SELFPAY ==
--- NOTE | 2024-03-22 11:37 | A.OFFVIS_ITS ---
Vital Signs 03/22/24 11:42 Height 4 ft 7 in Weight 94 lb 4 oz BMI 21.9 BP 102/70 Blood Pressure Location Rt brachial Position Sitting Pulse 84 Pulse Source Pulse Oximeter Pulse Oximetry (%) 98 Oxygen Delivery Method Room Air Intake Visit Reasons: follow up-LVM Intake Note: Patient presents for f/u. Trouble sleeping Allergies No Known Allergies [No Known Allergies*] Allergy (Verified 03/22/24 11:40) Medication List - Last Reconciled 03/22/24 by SILVIA Smith albuterol sulfate 90 mcg/actuation 2 puffs inhalation Q4-6H PRN amitriptyline 50 mg (2 x 25 mg) PO BEDTIME 30 days atorvastatin 40 mg PO BEDTIME 90 days baclofen 10 mg PO TID PRN budesonide-formoterol 80-4.5 mcg/actuation (Symbicort) 2 puffs inhalation BID buspirone 5 mg PO BID 30 days ifnlukqpum-erxjthwrjdxal-cqdl 50-325-40 mg 1 tab PO Q4H PRN 30 days cholecalciferol (vitamin D3) 50 mcg PO DAILY docusate sodium 100 mg PO DAILY PRN duloxetine 60 mg PO DAILY 30 days ferrous sulfate 325 mg PO DAILY 30 days folic acid 1 mg PO DAILY methotrexate sodium 20 mg (8 x 2.5 mg) PO QWEEK naratriptan take 1/2 - 1 tab at onset of headache; if no relief may repeat 1 tab after at least 4 hrs; max = 2 tabs/24 hrs orally PRN; 30 days rxldgsig-dujtkdzsb-KW 3.5-10,000-1 mg/mL-unit/mL-% 4 drps otic (ear) right Q8H 10 days omega 1-xxu-und-fish oil 1,000 mg (120 mg-180 mg) 1 cap PO DAILY omeprazole 20 mg PO DAILY sulindac 200 mg PO DAILY tramadol 50 mg PO Q6H zolpidem (Ambien) 10 mg PO BEDTIME PRN 30 days HPI Comments Details: 63-yr-old female presents for f/u visit. Pt reports she had a recent marked increase in her arthritis pain- neck and shoulder pain w/ decreased ROM in setting of elevated ESR and CRP. During this time, her migraines were worse- was treating w/ prn Fioricet and NSAID. Rheumatology adjusted her psoriatric arthritis tx regimen- she just had an infusion, which has been been helpful. She is moving better now. She does still endorse neck pain, some swelling in her hands when she wakes up in the am. She has bilateral R > L ankle tightness. She denies diplopia, vision changes, urinary incontinence, urinary urgency. She has not had the Aquaporin-4?(AQP4) (NMO-IgG)?Antibody lab done yet. She also notes recent bone density scan showed osteopenia. She is taking vit D. Also drinks milk- states loves milk. She notes that since the period of having increased pain, she is now having increased fragmented sleep. Even with taking the Ambien. She did stop the Amitriptyline a few months ago- as it was causing dry mouth even at the lower doses. She finds that her brain does not want to shut down. Goes to bed around 9pm, gets up around 7am. States she generally does not get tired. She takes 4 cups of coffee per day- last around 3-4pm. [facility] Medical History Anemia Transverse myelitis Cubital tunnel syndrome on left Fibromyalgia Surgical History H/O carpal tunnel repair Social History Alcohol intake: never Patient Tobacco Use Status: Current everyday Tobacco user Tobacco use type: Cigarette Cigarettes Per Day: 20 Years Smoked: 39 e-Cigarette/Vaping Use: Never Used Physical Exam Vital Signs: Last Vital Signs Pulse 84 03/22/24 11:42 BP 102/70 03/22/24 11:42 Pulse Ox 98 03/22/24 11:42 Oxygen Delivery Method Room Air 03/22/24 11:42 BMI result Body Mass Index 21.9 Const General: cooperative and no acute distress Orientation/consciousness: patient oriented x3 Resp Effort & Inspection: normal respiratory effort and able to speak in complete se ntences Neuro Other: Negative bilateral Redman's. General: patient oriented x3 Cranial nerves: Yes CN's II-XII intact bilaterally Cognition (Neuro): normal cognition Motor exam (neuro): 5/5 motor strength present throughout Deep tendon reflexes (DTR's): Right triceps reflex intensity grade: 2+, Left triceps reflex intensity grade: 2+, Rt Biceps (C5, C6): 2+, Left biceps reflex intensity grade: 2+, Right brachioradialis reflex intensity grade: 2+, Left brachioradialis reflex intensity grade: 2+, Right patellar reflex intensity grade: 2+ and Left patellar reflex intensity grade: 2+ Psych Appearance: grossly normal Mental Status: mental status grossly normal Speech and movement: Normal speech and movement present Affect: normal affect Attitude: cooperative Results Reviewed Results Reviewed: Exam Date:?10/25/2023 PROCEDURE: MR SPINE CERVICAL w + wo CONTRAST INDICATION: Neck and bilateral shoulder pain. Acute transverse myelitis, demyelinating disease. TECHNIQUE: Unenhanced and enhanced multiplanar, multisequence MR imaging of the cervical spine. Dotarem 10 mL was administered intravenously. COMPARISON: MR cervical 12/22/22. FINDINGS: There is stable reversal of the normal cervical lordosis centered at C5-6. The spine is in otherwise good alignment. Vertebral heights are well maintained. Craniocervical junction is unremarkable. There is edema and enhancement of the bone marrow in the vertebral body of C3. There is also Modic type II degenerative endplate changes in the vertebral bodies of C4, C5, C6, C7, and T1. Bone marrow signal is otherwise within normal limits, and no suspicious osseous lesion is identified. Prevertebral and paraspinal soft tissues are within normal limits. Visualized portions of the posterior fossa are unremarkable. Cervical cord demonstrates normal course, caliber, and signal characteristics. No epidural fluid collection or hematoma is identified. There is mild enhancement within the cord at C4-5. At C2-3 there is no significant disc herniation or protrusion. No central canal or neural foraminal stenosis is demonstrated. At C3-4 there is no significant disc herniation or protrusion. There is left uncinate hypertrophy causing mild left neuroforaminal narrowing as well as mild central canal stenosis. At C4-5 there is no significant disc herniation or protrusion. There is bilateral uncinate hypertrophy causing mild bilateral neuroforaminal narrowing as well as mild central canal stenosis. At C5-6 there is a small disc osteophyte complex. No central canal or neural foraminal stenosis is demonstrated. At C6-7 there is no significant disc herniation or protrusion. No central canal or neural foraminal stenosis is demonstrated. At C7-T1 there is no significant disc herniation or protrusion. No central canal or neural foraminal stenosis is demonstrated. IMPRESSION: 1. There is edema and enhancement of the bone marrow in the vertebral body of C3. This is a nonspecific finding and is likely due to degenerative change, but co uld also represent osteomyelitis. 2. There is mild enhancement within the cord at C4-5 which may represent acute transverse myelitis or demyelination. 3. There is multilevel degenerative disc and bony disease causing central canal and neuroforaminal stenosis as described. 11/23/2022 03:00 RESULT: MRI Cervical Spine W+W/O Contrast MRI Cervical Spine W+W/O Contrast INDICATION: pt with left-sided neck pain for 4 days, sent in by MD for eval and possible MRI, sts increased pain in both arms as well, and pain at base of neck; Reason: Pain Trauma; Clinical Question(s): Epidural Empyema. TECHNIQUE: Sagittal T1, T2, STIR and axial T1 and T2-weighted sequences. Axial 3D gradient echo volume images. After 10 mL of Clariscan was administered intravenously, sagittal and axial T1-weighted images were obtained. COMPARISON: None. FINDINGS: The current study is limited due to motion artifacts. ALIGNMENT, VERTEBRAE, MARROW, AND DISCS: The cervical spine shows a mildly reversed lordosis. There is a mild anterolisthesis of C3 over C4. There are ill-defined areas of hypointense T1 signals involving the left inferior aspect of the C3 vertebral body and the majority of the superior aspect of C4 v ertebral body which show diffuse heterogeneous enhancement. Similar ill-defined hypointense T1 signals are seen involving the left inferior C7 vertebral body and the left superior T1 vertebral body which also show diffuse heterogeneous enhancement. These areas show no corresponding hyperintense signals on the STIR images. The findings may represent degenerative endplate changes although osteomyelitis cannot be totally excluded. Please correlate clinically. Follow-up is suggested. The bone marrow signals of the rest of the cervical vertebral bodies heterogeneous hyperintense on T1-weighted images suggesting degenerative changes. C3-C4 disc space is slightly widened anteriorly. Anterior osteophytes are noted from C3-C4 through C7-T1 levels. C4-C5 to C7-T1 levels have severe disc space narrowing and degenerative endplate changes. A small area of hyperintense T2 signal seen within the anterior disc space at C5-C6 and C6-C7 levels suggesting a small amount of fluid. No definite epidural lesion is seen. POSTERIOR FOSSA AND CORD: The visualized posterior fossa shows no definite abnormal signal. The evaluation of the cervical cord is limited due to motion artifacts. There appears to be mild cord expansion as subtly increased T2 signal in the cord from C3-C4 to C5-C6 levels which shows subtle heterogeneous enhancement. PARASPINAL TISSUES: There is a thin layer of hyperintense T2 signal in the prevertebral spaces from C2 to C3 level which may represent either edema or fluid collection. There are also prominent soft tissues with heterogeneous enhancement the prevertebral spaces from at C3-C4 level,, worse at C4 level and more on the left which show heterogeneous enhancement. The findings suggest either phlegmon or an abscess. Please correlate clinically. A small amount of fluid is also seen within the anterior disc spaces of C5-C6 C6-C7 levels which shows enhancement. A focal discitis cannot be excluded. The thyroid lobes appear diffusely enlarged and slightly heterogeneous. There is a subcentimeter hyperintense T2 nodule in the superior aspect of right thyroid lobe. The visualized medial ends of bilateral clavicles appear significantly hypertrophic. Please correlate clinically C2-C3 level shows no disc herniation, stenosis or neuroforamen narrowing. C3-C4 level has a mild disc bulge. The spinal canal is stenotic without cord compression. There is mild left neuroforamen narrowing due to a mild left uncovertebral joint osteophyte. C4-C5 level has a minimal posterior osteophyte. The spinal canal is stenotic without cord compression. There are mild uncovertebral joint osteophytes bilaterally without definite neuroforamen narrowing. C5-C6 levels show a mild left paracentral osteophyte. The left ventral subarachnoid space is effaced. Minimal left neural from narrow ing due to a mild left uncovertebral joint osteophyte. C6-C7 level shows no disc herniation, stenosis or narrowing. C7-T1 level shows no disc herniation, stenosis or neuroforamen narrowing. IMPRESSION: Limited study due to motion artifacts. There appears to be mild cord expansion with subtly increased T2 signal and subtle heterogeneous enhancement in the cord from C3-C4 to C5-C6 levels. The findings are nonspecific. The differential diagnosis include transverse myelitis, multiple sclerosis or NMO. Please correlate clinically. Follow-up is suggested. Prevertebral fluid versus edema is noted from C2 through C7 levels. Prominent soft tissues with heterogeneous enhancement are seen at C3-C4 level, worse on the. The findings may represent either a phlegmon or abscess. A small amount of fluid within the anterior disc spaces of C5-C6 and C6-C7 levels which also show enhancement. I cannot exclude focal discitis. Please correlate clinically. Follow-up is congested. Abnormal signals and heterogeneous enhancement are seen at left-sided C3-C4 and C7-T1 levels which may represent degenerative changes although osteomyelitis cannot be totally excluded. Please correlate clinically. A mildly reversed cervical doses and multiple levels of cervical spondylosis. Assessment & Plan Assessment & Plan (1) Transverse myelitis: Comment: likely related to etanercept use with mild clinical symptoms Code(s): G37.3 - Acute transverse myelitis in demyelinating disease of central nervous system Category: Medical (2) Migraine with aura: Code(s): G43.109 - Migraine with aura, not intractable, without status migrainosus Category: Medical (3) Insomnia: Comment: HST ([facility] [place] 01/07) normal w/ AHI 1.7/hr and O2 valentino 87%. Code(s): G47.00 - Insomnia, unspecified Category: Medical (4) White matter abnormality on MRI of brain: Code(s): R90.82 - White matter disease, unspecified Category: Medical Plan For h/o transverse myelitis and intracerebral white matter disease: F/u c-spine MRI w/wo- showed mild enhancement within the cord at C4-5. Previous 2022 Brain and C-spine MRI findings: C-spine MRI: Intramedullary changes from C3-C6 c/w demyelination and Brain MRI: findings of T1 signal loss in the C4 vertebral body Again check serum Aquaporin-4 AB. Advised pt to reestablish care w/ eye provider. Recheck brain MRI and C-spine MRI w/wo in approx Apr 2024. For migraine: Pt stopped Amitriptyline. Naratriptan prn. Fioricet prn migraine. Previous tx trials- Sumatriptan- worsened headache. Amitriptyline- caused bothersome dry mouth Future considerations- gepant. For sleep: Hold Ambien 10mg qhs prn. Trial Ambien 12.5mg CR qhs. Pt advised to inform us w/ any signs of sleepwalking. Limit caffeine intake to before 2pm. Advised pt likely does not need to be in bed quite so long. Only go to bed when tired. Information shared on resources to help pt improve her sleep hygiene and sleep quality. Carpal tunnel wrist splints at night prn. f/u in 4-6 months or sooner prn Orders: Orders MR cervical spine wo/w con Today G37.3 - Acute transverse myelitis in demyelinating disease of central nervous system, L40.50 - Arthropathic psoriasis, unspecified, R90.82 - White matter disease, unspecified, R93.7 - Abnormal findings on diagnostic imaging of other parts of musculoskeletal system MR head/brain wo/w con Today G37.3 - Acute transverse myelitis in demyelinating disease of central nervous system, L40.50 - Arthropathic psoriasis, unspecified, R90.82 - White matter disease, unspecified, R93.7 - Abnormal findings on diagnostic imaging of other parts of musculoskeletal system Medications: New zolpidem ER (Ambien CR) 12.5 mg PO BEDTIME 30 days 30 tabs 1RF Refilled kjfrnyjocg-powcyfmdmnmgr-oyze 50-325-40 mg 1 tab at onset of headache, may repeat in 4 hours (max 2 tabs/day, 4 tabs/week). 1 tab PO Q4H 30 days PRN 20 tabs 3RF pain Discontinued zolpidem (Ambien) Discontinued Reason: Doctor's Order 10 mg PO BEDTIME 30 days PRN 30 tabs 3RF insomnia Coding Level of Care Code Est Pt Level 4 (38991) Diagnoses Transverse myelitis G37.3 Migraine with aura G43.109 Insomnia G47.00 White matter abnormality on MRI of brain R90.82
[2024-03-22 11:42] VITALS: BP 102/70; PULSE 84; O2SAT 98; BMI 21.9
== END 2024-03-22 12:43 | disposition home or self-care (01) ==
PROVIDERS: PCP Internal Medicine; Visit Provider Nurse Practitioner Family
DX: G37.3 Acute transverse myelitis in demyelinating disease of central nervous system (principal); G43.109 Migraine with aura, not intractable, without status migrainosus; G47.00 Insomnia, unspecified; R90.82 White matter disease, unspecified
CPT/HCPCS: 99214

== ENCOUNTER → 2024-03-22 11:35 | Outpatient (BNVA) | payer OTHER, SELFPAY | PROVIDERS: PCP Internal Medicine; Visit Provider Nurse Practitioner Family | DX: G37.3 Acute transverse myelitis in demyelinating disease of central nervous system (principal); G43.109 Migraine with aura, not intractable, without status migrainosus; G47.00 Insomnia, unspecified; R90.82 White matter disease, unspecified | CPT/HCPCS: 99212 ==

== ENCOUNTER 2024-03-27 10:01 | Outpatient (AMB) | payer OTHER, SELFPAY ==
--- NOTE | 2024-03-27 10:05 | MHC.OFFVIS ---
Vital Signs 03/27/24 10:08 Height 4 ft 7 in Weight 96 lb 12.527 oz BMI 22.5 BP 120/78 Blood Pressure Location Lt brachial Position Sitting Pulse 88 Pulse Source Pulse Oximeter Pulse Oximetry (%) 98 Oxygen Delivery Method Room Air Intake Visit Reasons: PsA/lm Intake Note: Patient presents for PsA. Allergies No Known Allergies [No Known Allergies*] Allergy (Verified 03/27/24 10:08) Medication List - Last Reconciled 03/27/24 by Prema Asencio MD albuterol sulfate 90 mcg/actuation 2 puffs inhalation Q4-6H PRN amitriptyline 50 mg (2 x 25 mg) PO BEDTIME 30 days atorvastatin 40 mg PO BEDTIME 90 days baclofen 10 mg PO TID PRN budesonide-formoterol 80-4.5 mcg/actuation (Symbicort) 2 puffs inhalation BID buspirone 5 mg PO BID 30 days ogvsalgmrq-mvklzbmtunuvt-ltqf 50-325-40 mg 1 tab PO Q4H PRN 30 days cholecalciferol (vitamin D3) 50 mcg PO DAILY docusate sodium 100 mg PO DAILY PRN duloxetine 60 mg PO DAILY 30 days ferrous sulfate 325 mg PO DAILY 30 days folic acid 1 mg PO DAILY methotrexate sodium 20 mg (8 x 2.5 mg) PO QWEEK naratriptan take 1/2 - 1 tab at onset of headache; if no relief may repeat 1 tab after at least 4 hrs; max = 2 tabs/24 hrs orally PRN; 30 days xckcoeto-hahkpwvrs-HR 3.5-10,000-1 mg/mL-unit/mL-% 4 drps otic (ear) right Q8H 10 days omega 5-mmz-uak-fish oil 1,000 mg (120 mg-180 mg) 1 cap PO DAILY omeprazole 20 mg PO DAILY sulindac 200 mg PO DAILY tramadol 50 mg PO Q6H zolpidem ER (Ambien CR) 12.5 mg PO BEDTIME 30 days HPI Comments Details: This is a 63-year-old female with psoriatic arthritis who presents for follow-up. After last visit we discontinued her Taltz and hand to switch her to Cosentyx infusions. Patient also discontinued methotrexate. She misunderstood. It took awhile for Cosentyx infusions were authorized and scheduled. She was having significantly worsening neck pain, was unable to move her neck at all. She finally received her 1st Cosentyx infusion about 3 weeks ago with significant improvement of her neck pain. Infusion was uneventful. She notes mild intermittent electric shock sensation in her right heel. She only feels it intermittently especially when she touches that area on her right heel. She does not have getting pain from her back. She is doing well otherwise. [facility] Medical History Anemia Transverse myelitis Cubital tunnel syndrome on left Fibromyalgia Surgical History H/O carpal tunnel repair Social History Alcohol intake: never Patient Tobacco Use Status: Current everyday Tobacco user Tobacco use type: Cigarette Cigarettes Per Day: 20 Years Smoked: 39 e-Cigarette/Vaping Use: Never Used Female Reproductive History Menstrual Total pregnancies: 5 Full term: 4 Number of Living Children: 3 Ectopics: 1 Review of Systems ENT Reports neck pain Musc Reports back pain and Reports neck pain Neuro Reports paresthesias Physical Exam Vital Signs: Last Vital Signs Pulse 88 03/27/24 10:08 BP 120/78 03/27/24 10:08 Pulse Ox 98 03/27/24 10:08 Oxygen Delivery Method Room Air 03/27/24 10:08 BMI result Body Mass Index 22.5 Const General: cooperative, healthy appearing and comfortable Nutritional Appearance: average body habitus Orientation/consciousness: patient oriented x3 Limitations: no limitations HEENT Head: Yes normocephalic and Yes atraumatic Mouth: moist mucous membranes Resp Effort & Inspection: normal respiratory effort and able to speak in complete sentences Auscultation: clear to auscultation bilaterally Cardio Rate: regular rate Rhythm: regular rhythm Skin Other: Minimal blistering psoriasis patches on left palm Neuro Other: Bilateral reduced sensation in both feet. No footdrop bilaterally today General: patient oriented x3 Extrem Other: No active peripheral synovitis Significantly reduced neck range of motion and James test 10-15 cm Normal lateral flexion test No tenderness upon palpation of her neck Assessment & Plan Assessment & Plan (1) Psoriatic arthritis: Comment: 09/2020 treated for fibromyalgia 09/2020 MRI of the cervical spine showed changes consistent with active psoriatic arthritis as well as evidence of erosions. 11/2020 started on methotrexate- present 03/2021 started on Enbrel-11/2022 stopped due to active neck pain, and psoriasis. 12/2022- Humira with improvement of neck pain and psoriasis - DC 04/2023 due to concern for spinal transverse myelitis taltz 04/2023 DC 12/2023 ineffective Cosentyx 02/2024 effective Code(s): L40.50 - Arthropathic psoriasis, unspecified Category: Medical Plan: This is a 63-year-old female who presents for psoriatic arthritis follow-up. After last visit we discontinued her Taltz and hand to switch her to Cosentyx infusions. Patient also discontinued methotrexate. She misunderstood. It took awhile for Cosentyx infusions were authorized and scheduled. She was having significantly worsening neck pain, was unable to move her neck at all. Inflammatory markers significantly elevated. She finally received her 1st Cosentyx infusion about 3 weeks ago with significant improvement of her neck pain. Infusion was uneventful. Restart methotrexate at 20 mg weekly. Restart folic acid 1 mg daily Continue with Cosentyx infusions Labs before next visit in 3 months (2) Fibromyalgia: Code(s): M79.7 - Fibromyalgia Category: Medical Plan: Stable. Continue amitriptyline, Cymbalta and baclofen at her current doses. 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 At this time patient low FRAX score and does not qualify for osteoporosis treatment. Most recent vitamin-D level 38 which is near target. Continue with vitamin-D 2000 units daily. Can repeat DEXA in 2025 (5) Degenerative cervical disc: Code(s): M50.30 - Other cervical disc degeneration, unspecified cervical region Category: Medical Plan: Continue with tramadol 50 mg q.i.d. Plan I spent 35 minutes reviewing patient's chart, evaluating patient, ordering diagnostic workup, counseling patient and documenting in the chart Orders: Orders Complete Blood Count Auto Diff 3 Months L40.50 - Arthropathic psoriasis, unspecified Comprehensive Met. 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
[2024-03-27 10:08] VITALS: BP 120/78; PULSE 88; O2SAT 98; BMI 22.5
== END 2024-03-27 10:26 | disposition home or self-care (01) ==
PROVIDERS: PCP Internal Medicine; Visit Provider Student in an Organized Health Care Education/Training Program
DX: L40.50 Arthropathic psoriasis, unspecified (principal); M79.7 Fibromyalgia; Z79.631 Long term (current) use of antimetabolite agent; M85.89 Other specified disorders of bone density and structure, multiple sites; M50.30 Other cervical disc degeneration, unspecified cervical region
CPT/HCPCS: 99214; G2211

== ENCOUNTER → 2024-03-27 10:01 | Outpatient (BNVA) | payer OTHER, SELFPAY | PROVIDERS: PCP Internal Medicine; Visit Provider Student in an Organized Health Care Education/Training Program | DX: L40.50 Arthropathic psoriasis, unspecified (principal); M79.7 Fibromyalgia; M85.89 Other specified disorders of bone density and structure, multiple sites; M50.30 Other cervical disc degeneration, unspecified cervical region; Z79.631 Long term (current) use of antimetabolite agent; Z79.891 Long term (current) use of opiate analgesic; Z79.899 Other long term (current) drug therapy | CPT/HCPCS: 99212 ==

== ENCOUNTER 2024-05-17 11:35 | Outpatient (REF) | payer OTHER, SELFPAY ==
--- NOTE | ~2024-05-17 | MR_ITS ---
MR CERVICAL SPINE WITH AND WITHOUT CONTRAST MR BRAIN WITH AND WITHOUT CONTRAST CLINICAL INFORMATION: White matter disease. COMPARISON: Brain and cervical spine MRI March 09, 2023 and December 22, 2022. TECHNIQUE: Multiplanar multisequence MR imaging of the brain and cervical spine obtained without and following the administration of 4 mL of gadolinium this intravenous contrast without complication. FINDINGS: BRAIN MRI: Stable T2 signal changes within the supratentorial white matter when compared to the prior study. There are no enhancing lesions intracranially. There is no hydrocephalus, extra-axial surface collection, or herniation. The major flow voids at the skull base are preserved. A 3.5 mm nodular flow void along the upper margin of the right supraclinoid ICA segment is most concerning for an aneurysm for which a MRA of the head is recommended for further assessment. There is no acute infarct on diffusion-weighted imaging. There is no intracranial hemorrhage on the gradient recalled echo acquisition. The midline structures are normal. The cerebellar tonsils are normally positioned. The cerebellum and brainstem are normal. The craniocervical junction is normal. Osseous marrow signal intensity is homogenous. The visualized soft tissues are unremarkable. CERVICAL SPINE MRI: Extensive T2 signal changes throughout the C3-T1 anterior and posterior elements, previously spanning the C4-T1 levels. As on the prior study, there is circumferential epidural soft tissue of enhancement at the levels of involvement that mildly impresses upon the thecal sac. Given the history of psoriatic arthritis, the sequela of inflammatory arthropathy is favored. Chronic infection could appear similar and should be clinically correlated. Vertebral body heights are maintained. Severe disc volume loss at the C4-C5, C5-C6, C6-C7, C7-T1 levels. No definite cord signal changes when accounting for artifact. The cervical arterial flow voids are maintained. C2-C3: Diffuse annular disc bulge. Uncovertebral joint spurring and facet arthropathy results in mild right-sided foraminal encroachment. C3-C4: Uncovertebral joint spurring and facet arthropathy result in mild to moderate left and mild right foraminal stenosis which is unchanged. Annular disc bulge and ligamentum flavum thickening results in mild to moderate central canal stenosis which is unchanged. C4-C5: Disc osteophyte mildly narrows the central canal. Uncovertebral joint spurring and arthropathy results in mild bilateral foraminal encroachment which is unchanged. C5-C6: Shallow left paracentral disc protrusion posterior disc contour is normal. No central canal stenosis and no foraminal stenosis. Mildly narrows the central canal. There is no foraminal stenosis. C6-C7: Uncovertebral joint spurring and facet arthropathy result in mild bilateral foraminal encroachment which is unchanged. C7-T1: Uncovertebral joint spurring and facet arthropathy result in mild bilateral foraminal encroachment which is unchanged. MR/MR cervical spine wo/w con IMPRESSION: * A 3.5 mm nodular flow void along the upper margin of the right supraclinoid ICA segment is most concerning for an aneurysm for which a MRA of the head is recommended for further assessment * Stable T2 signal changes within the supratentorial white matter when compared to the prior study. There are no enhancing lesions intracranially. * Extensive T2 signal changes throughout the C3-T1 anterior and posterior elements, previously spanning the C4-T1 levels. As on the prior study, there is circumferential epidural soft tissue of enhancement at the levels of involvement that mildly impresses upon the thecal sac. Given the history of psoriatic arthritis, the sequela of inflammatory arthropathy is favored. Chronic infection could appear similar and should be clinically correlated. * The cervical nerve roots at the C4-T1 levels appear enlarged which may be related to chronic inflammatory change from the above findings. * Stable cervical spondylosis. Findings discussed with Eileen Hand MD at 2:30 PM on June 05, 2024. Electronically signed by: Elia Palma MD 06/05/2024 02:50 PM EDT
[2024-05-17] MEDS: gadobutroL 7.5 ML VIAL IVPUSH (12:37)
== END 2024-05-17 11:36 | disposition home or self-care (01) ==
LOC: HO.MRI 11:35
PROVIDERS: PCP Internal Medicine; Visit Provider Nurse Practitioner Family
DX: R90.82 White matter disease, unspecified (principal); G37.3 Acute transverse myelitis in demyelinating disease of central nervous system; L40.50 Arthropathic psoriasis, unspecified; R93.7 Abnormal findings on diagnostic imaging of other parts of musculoskeletal system
CPT/HCPCS: 70553; 72156; A9585

== ENCOUNTER 2024-07-03 09:51 | Outpatient (REF) | payer OTHER, SELFPAY ==
[2024-07-03 10:42] LABS: MANUAL DIFF FLAG NO
[2024-07-03 10:45] LABS: Basophils Absolute Auto 0.1 X10*3/uL (0.0-0.2); Eosinophils Absolute Auto 0.1 X10*3/uL (0.0-0.4); Eosinophils Percent Auto 1.3 % (0-4); Hematocrit 38.7 % (37.0-47.0); Hemoglobin 12.6 g/dl (12.0-16.0); Imm Gran Abs Auto 0.03 X10*3/uL (0.00-0.03); Imm Gran Pct Auto 0.3 % (0.0-0.4); Lymphocytes Absolute Auto 2.6 X10*3/uL (1.2-4.9); Lymphocytes Percent Auto 23.7 % (20-40); Mean Corpuscular HGB Conc 32.6 g/dl (31.0-35.0); Mean Corpuscular Hemoglobin 29.3 pg (27.0-33.0); Mean Platelet Volume 9.1 fL (9.4-12.3); Monocytes Absolute Auto 0.8 X10*3/uL (0.1-1.2); Monocytes Percent Auto 7.3 % (2-11); Neutrophils Absolute Auto 7.2 x10*3/uL (2.0-8.3); Neutrophils Percent Auto 66.4 % (45-73); Platelet Count 407 X10*3/uL (160-400); Red Cell Distribution Width 15.9 % (11.0-16.0); White Blood Count 10.9 X10*3/uL (4.8-10.8)
[2024-07-03 11:09] LABS: Alanine Aminotransferase 13 U/L (0-31); Albumin Level 3.9 g/dL (3.5-5.0); Alkaline Phosphatase 134 U/L (39-117); Anion Gap 12 (12-20); Aspartate Amino Transferase 16 U/L (5-31); Bilirubin Total 0.2 mg/dL (0.0-1.0); Blood Urea Nitrogen 12 mg/dL (9-16); C Reactive Protein 4.22 mg/dL (< or = 0.50); Calcium 9.3 mg/dL (8.4-10.2); Carbon Dioxide 27 mmol/L (22-29); Chloride 104 mmol/L (96-108); Estimated Glomerular Filt Rate > 60; Glucose Random 90 mg/dL (60-115); Potassium 3.5 mmol/L (3.3-5.1); Sodium 139 mmol/L (135-145); Total Protein 7.9 g/dL (6.5-8.0)
[2024-07-03 11:23] LABS: Erythrocyte Sedimentation Rate 77 MM/HR (0-20)
== END 2024-07-03 09:52 | disposition home or self-care (01) ==
LOC: HO.10HDL 09:51
PROVIDERS: Visit Provider Student in an Organized Health Care Education/Training Program
DX: L40.50 Arthropathic psoriasis, unspecified (principal); M79.7 Fibromyalgia; Z79.631 Long term (current) use of antimetabolite agent; M85.89 Other specified disorders of bone density and structure, multiple sites; M50.30 Other cervical disc degeneration, unspecified cervical region
CPT/HCPCS: 36415; 80053; 85025; 85652; 86140; 99212

== ENCOUNTER 2024-07-03 10:00 | Outpatient (AMB) | payer OTHER, SELFPAY ==
--- NOTE | 2024-07-03 10:07 | MHC.OFFVIS ---
Vital Signs 07/03/24 10:12 Height 4 ft 7 in Weight 98 lb 1.691 oz BMI 22.8 BP 100/72 Blood Pressure Location Lt brachial Position Sitting Respiration 16 Pulse 97 Pulse Source Pulse Oximeter Pulse Oximetry (%) 98 Oxygen Delivery Method Room Air Intake Visit Reasons: PSA Intake Note: Patient presents for PsA. Allergies No Known Allergies [No Known Allergies*] Allergy (Verified 07/03/24 10:09) Medication List - Last Reconciled 07/03/24 by Prema Asencio MD albuterol sulfate 90 mcg/actuation 2 puffs inhalation Q4-6H PRN amitriptyline 50 mg (2 x 25 mg) PO BEDTIME 30 days aspirin 81 mg PO DAILY atorvastatin 40 mg PO BEDTIME 90 days baclofen 10 mg PO TID PRN budesonide-formoterol 80-4.5 mcg/actuation (Symbicort) 2 puffs inhalation BID buspirone 5 mg PO BID 30 days cpvwnadpdd-krpciyewiwhkg-xwcb 50-325-40 mg 1 tab PO Q4H PRN 30 days cholecalciferol (vitamin D3) 50 mcg PO DAILY clopidogrel 75 mg PO DAILY docusate sodium 100 mg PO DAILY PRN duloxetine 60 mg PO DAILY 30 days ferrous sulfate 325 mg PO DAILY 30 days folic acid 1 mg PO DAILY methotrexate sodium 20 mg (8 x 2.5 mg) PO QWEEK naratriptan take 1/2 - 1 tab at onset of headache; if no relief may repeat 1 tab after at least 4 hrs; max = 2 tabs/24 hrs orally PRN; 30 days amginbpu-bndozmkec-EI 3.5-10,000-1 mg/mL-unit/mL-% 4 drps otic (ear) right Q8H 10 days omega 1-kwj-igp-fish oil 1,000 mg (120 mg-180 mg) 1 cap PO DAILY omeprazole 20 mg PO DAILY 90 days sulindac 200 mg PO DAILY tramadol 50 mg PO Q6H PRN zolpidem ER (Ambien CR) 12.5 mg PO BEDTIME 30 days HPI Comments Details: This is a 63-year-old female with psoriatic arthritis who presents for follow-up. She is on Cosentyx infusions. Most recent infusion was 06/07. She remains on methotrexate. Recent neck and brain MRA found an intracranial aneurysm, she was referred to [facility] and had a diagnostic angiogram last week and was told she will need surgical clipping. She states that she will be going back for clipping next week. She states that she continues to have neck pain that radiates to her shoulders. Intermittent low back pain. Rashes on her palms significantly improved [facility] Medical History Anemia Transverse myelitis Cubital tunnel syndrome on left Fibromyalgia Surgical History H/O carpal tunnel repair Social History Alcohol intake: never Patient Tobacco Use Status: Current everyday Tobacco user Tobacco use type: Cigarette Cigarettes Per Day: 20 Years Smoked: 39 e-Cigarette/Vaping Use: Never Used Female Reproductive History Menstrual Total pregnancies: 5 Full term: 4 Number of Living Children: 3 Ectopics: 1 Review of Systems ENT Reports neck pain Musc Reports back pain and Reports neck pain Neuro Reports paresthesias Physical Exam Vital Signs: Last Vital Signs Pulse 97 07/03/24 10:12 Resp 16 07/03/24 10:12 BP 100/72 07/03/24 10:12 Pulse Ox 98 07/03/24 10:12 Oxygen Delivery Method Room Air 07/03/24 10:12 BMI result Body Mass Index 22.8 Const General: cooperative, healthy appearing and comfortable Nutritional Appearance: average body habitus Orientation/consciousness: patient oriented x3 Limitations: no limitations HEENT Head: Yes normocephalic and Yes atraumatic Mouth: moist mucous membranes Resp Effort & Inspection: normal respiratory effort and able to speak in complete sentences Auscultation: clear to auscultation bilaterally Cardio Rate: regular rate Rhythm: regular rhythm Skin Other: Psoriasis rashes on her palms significantly improved Neuro Other: Bilateral reduced sensation in both feet. No footdrop bilaterally today General: patient oriented x3 Extrem Other: No active peripheral synovitis Significantly reduced neck range of motion and James test 10-15 cm Normal lateral flexion test Negative straight leg raise test bilaterally Negative Fabere test bilaterally Assessment & Plan Assessment & Plan (1) Psoriatic arthritis: Comment: 09/2020 treated for fibromyalgia 09/2020 MRI of the cervical spine showed changes consistent with active psoriatic arthritis as well as evidence of erosions. 11/2020 started on methotrexate- present 03/2021 started on Enbrel-11/2022 stopped due to active neck pain, and psoriasis. 12/2022- Humira with improvement of neck pain and psoriasis - DC 04/2023 due to concern for spinal transverse myelitis taltz 04/2023 DC 12/2023 ineffective Cosentyx infusions 02/2024 effective Code(s): L40.50 - Arthropathic psoriasis, unspecified Category: Medical Plan: This is a 63-year-old female who presents for psoriatic arthritis follow-up. She remains on methotrexate 20 mg weekly, folic acid 1 mg daily and Cosentyx infusions. The psoriasis rashes on her palms are significantly improved. States that the infusions help her neck and low back pain for about a week then the pain returns. I think patient does doing her best on this current combination. Continue current meds. Advised patient to postpone her Cosentyx infusion 1 week after her neurosurgery procedure Labs today and before next visit in 3 months (2) Fibromyalgia: Code(s): M79.7 - Fibromyalgia Category: Medical Plan: Stable. Continue amitriptyline, Cymbalta and baclofen at her current doses. 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 At this time patient low FRAX score and does not qualify for osteoporosis treatment. Most recent vitamin-D level 38 which is near target. Continue with vitamin-D 2000 units daily. Can repeat DEXA in 2025 (5) Degenerative cervical disc: Code(s): M50.30 - Other cervical disc degeneration, unspecified cervical region Category: Medical Plan: Continue with tramadol 50 mg q.i.d. Plan I spent 35 minutes reviewing patient's chart, evaluating patient, ordering diagnostic workup, counseling patient and documenting in the chart Orders: Orders Complete Blood Count Auto Diff 3 Months L40.50 - Arthropathic psoriasis, unspecified Erythrocyte Sedimentation Rate 3 Months L40.50 - Arthropathic psoriasis, unspecified C Reactive Protein 3 Months L40.50 - Arthropathic psoriasis, unspecified Comprehensive Met. 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
[2024-07-03 10:12] VITALS: BP 100/72; PULSE 97; RESP 16; O2SAT 98; BMI 22.8
== END 2024-07-03 10:32 | disposition home or self-care (01) ==
PROVIDERS: PCP Internal Medicine; Visit Provider Student in an Organized Health Care Education/Training Program
DX: L40.50 Arthropathic psoriasis, unspecified (principal); M79.7 Fibromyalgia; Z79.631 Long term (current) use of antimetabolite agent; M85.89 Other specified disorders of bone density and structure, multiple sites; M50.30 Other cervical disc degeneration, unspecified cervical region
CPT/HCPCS: 99214; G2211

== ENCOUNTER 2024-10-03 12:49 | Outpatient (AMB) | payer OTHER, SELFPAY ==
[2024-10-03 12:52] VITALS: BP 110/64; PULSE 101; BMI 22.9
--- NOTE | 2024-10-03 12:52 | MHC.OFFVIS ---
Vital Signs 10/03/24 12:52 Height 4 ft 7 in Weight 98 lb 8.746 oz BMI 22.9 BP 110/64 Blood Pressure Location Lt brachial Position Sitting Pulse 101 H Pulse Source Pulse Oximeter Intake Visit Reasons: PsA Intake Note: Patient present today for PsA follow up. 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 Accompanied by: Son Allergies No Known Allergies [No Known Allergies*] Allergy (Verified 10/03/24 12:54) Medication List - Last Reconciled 10/03/24 by Prema Asencio MD albuterol sulfate 90 mcg/actuation 2 puffs inhalation Q4-6H PRN aspirin 81 mg PO DAILY atorvastatin 40 mg PO BEDTIME 90 days baclofen 10 mg PO TID PRN budesonide-formoterol 80-4.5 mcg/actuation (Symbicort) 2 puffs inhalation BID buspirone 5 mg PO BID 30 days xszpfpmcqe-bnxzlqwboixme-regp 50-325-40 mg 1 tab PO Q4H PRN 30 days cholecalciferol (vitamin D3) 50 mcg PO DAILY clopidogrel 75 mg PO DAILY docusate sodium 100 mg PO DAILY PRN duloxetine 60 mg PO DAILY 30 days ferrous sulfate 325 mg PO DAILY 30 days folic acid 1 mg PO DAILY methotrexate sodium 20 mg (8 x 2.5 mg) PO QWEEK naratriptan take 1/2 - 1 tab at onset of headache; if no relief may repeat 1 tab after at least 4 hrs; max = 2 tabs/24 hrs orally PRN; 30 days zxhastik-shyyqezmj-FJ 3.5-10,000-1 mg/mL-unit/mL-% 4 drps otic (ear) right Q8H 10 days omega 1-dys-uvf-fish oil 1,000 (120-180) mg 1 cap PO DAILY omeprazole 20 mg PO DAILY 90 days sulindac 200 mg PO DAILY tramadol 50 mg PO Q6H PRN zolpidem ER (Ambien CR) 12.5 mg PO BEDTIME 30 days HPI Comments Details: This is a 63-year-old female with psoriatic arthritis who presents for follow-up. She is on Cosentyx infusions & on methotrexate. She states that she recently had a neuro vascular intervention for aneurysm, this was back in July per patient the procedure was uneventful and she was started on aspirin and Plavix. She is to stay on them for 6 months. She states that she has been doing reasonably well overall. The rashes on her right palm have significantly improved the rashes on her left thumb have significantly improved but she has been picking on them and they have been worse, the rashes on the soles of her feet are much better. She continues to have neck stiffness PFSH Medical History Anemia Transverse myelitis Cubital tunnel syndrome on left Fibromyalgia Surgical History H/O carpal tunnel repair Social History Alcohol intake: never Patient Tobacco Use Status: Current everyday Tobacco user Tobacco use type: Cigarette Cigarettes Per Day: 20 Years Smoked: 39 e-Cigarette/Vaping Use: Never Used Female Reproductive History Menstrual Total pregnancies: 5 Full term: 4 Number of Living Children: 3 Ectopics: 1 Review of Systems ENT Reports neck pain Musc Reports back pain and Reports neck pain Physical Exam Vital Signs: Last Vital Signs Pulse 101 H 10/03/24 12:52 BP 110/64 10/03/24 12:52 BMI result Body Mass Index 22.9 Const General: cooperative, healthy appearing and comfortable Nutritional Appearance: average body habitus Orientation/consciousness: patient oriented x3 Limitations: no limitations HEENT Head: Yes normocephalic and Yes atraumatic Mouth: moist mucous membranes Resp Effort & Inspection: normal respiratory effort and able to speak in complete sentences Auscultation: clear to auscultation bilaterally Cardio Rate: regular rate Rhythm: regular rhythm Skin Other: Psoriasis rashes on her palms significantly improved, but she has been picking on the rash in her left palm, she has a few excoriations Neuro Other: Bilateral reduced sensation in both feet. No footdrop bilaterally today General: patient oriented x3 Extrem Other: No active peripheral synovitis Significantly reduced neck range of motion and James test 10-15 cm Normal lateral flexion test Negative straight leg raise test bilaterally Negative Fabere test bilaterally Assessment & Plan Assessment & Plan (1) Psoriatic arthritis: Comment: 09/2020 treated for fibromyalgia 09/2020 MRI of the cervical spine showed changes consistent with active psoriatic arthritis as well as evidence of erosions. 11/2020 started on methotrexate- present 03/2021 started on Enbrel-11/2022 stopped due to active neck pain, and psoriasis. 12/2022- Humira with improvement of neck pain and psoriasis - DC 04/2023 due to concern for spinal transverse myelitis nicolasa 04/2023 DC 12/2023 ineffective Cosentyx infusions 02/2024 effective especially for skin Code(s): L40.50 - Arthropathic psoriasis, unspecified Category: Medical Plan: This is a 63-year-old female who presents for psoriatic arthritis follow-up. She remains on methotrexate 20 mg weekly, folic acid 1 mg daily and Cosentyx infusions. The psoriasis rashes on her palms are significantly improved. Doing well overall. I think patient does doing her best on this current combination. Continue current meds. Labs before next visit in 3 months (2) Fibromyalgia: Code(s): M79.7 - Fibromyalgia Category: Medical Plan: Her amitriptyline was discontinued. 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 At this time patient low FRAX score and does not qualify for osteoporosis treatment. Most recent vitamin-D level 38 which is near target. Continue with vitamin-D 2000 units daily. Can repeat DEXA in 2025 (5) Degenerative cervical disc: Code(s): M50.30 - Other cervical disc degeneration, unspecified cervical region Category: Medical Plan: Continue with tramadol 50 mg q.i.d. (6) Immunization counseling: Code(s): Z71.85 - Encounter for immunization safety counseling Category: Medical Plan: Advised patient to get her flu shot, pneumonia vaccine, Shingrix vaccine, COVID booster and try to get RSV vaccines. Skip 2 doses of methotrexate after vaccination. Plan I spent 35 minutes reviewing patient's chart, evaluating patient, ordering diagnostic workup, counseling patient and documenting in the chart Orders: Orders Comprehensive Met. Panel 3 Months L40.50 - Arthropathic psoriasis, unspecified, Z79.631 - exterminator helper termite (current) use of antimetabolite agent Erythrocyte Sedimentation Rate 3 Months L40.50 - Arthropathic psoriasis, unspecified, Z79.631 - exterminator helper termite (current) use of antimetabolite agent T Spot TB 3 Months Z11.7 - Encounter for testing for latent tuberculosis infection Comprehensive Met. Panel 3 Weeks L40.50 - Arthropathic psoriasis, unspecified, Z79.631 - halfway (current) use of antimetabolite agent Erythrocyte Sedimentation Rate 3 Weeks L40.50 - Arthropathic psoriasis, unspecified, Z79.631 - exterminator helper termite (current) use of antimetabolite agent Complete Blood Count Auto Diff 3 Months L40.50 - Arthropathic psoriasis, unspecified, Z79.631 - halfway (current) use of antimetabolite agent C Reactive Protein 3 Months L40.50 - Arthropathic psoriasis, unspecified, Z79.631 - halfway (current) use of antimetabolite agent Hepatitis A,B,C Profile 3 Months Z11.59 - Encounter for screening for other viral diseases Complete Blood Count Auto Diff 3 Weeks L40.50 - Arthropathic psoriasis, unspecified, Z79.631 - exterminator helper termite (current) use of antimetabolite agent C Reactive Protein 3 Weeks L40.50 - Arthropathic psoriasis, unspecified, Z79.631 - exterminator helper termite (current) use of antimetabolite agent Coding Level of Care Code Est Pt Level 4 (22854) Complex EM visit Add On G2211 Diagnoses Psoriatic arthritis L40.50 Fibromyalgia M79.7 halfway methotrexate user Z79.631 Osteopenia of multiple sites M85.89 Osteopenia location: multiple sites Degenerative cervical disc M50.30 Immunization counseling Z71.85
== END 2024-10-03 13:24 | disposition home or self-care (01) ==
PROVIDERS: PCP Internal Medicine; Visit Provider Student in an Organized Health Care Education/Training Program
DX: L40.50 Arthropathic psoriasis, unspecified (principal); M79.7 Fibromyalgia; Z79.631 Long term (current) use of antimetabolite agent; M85.89 Other specified disorders of bone density and structure, multiple sites; M50.30 Other cervical disc degeneration, unspecified cervical region; Z71.85 Encounter for immunization safety counseling
CPT/HCPCS: 99214; G2211

== ENCOUNTER → 2024-10-03 12:49 | Outpatient (BNVA) | payer OTHER, SELFPAY | PROVIDERS: PCP Internal Medicine; Visit Provider Student in an Organized Health Care Education/Training Program | DX: L40.50 Arthropathic psoriasis, unspecified (principal); M79.7 Fibromyalgia; M85.89 Other specified disorders of bone density and structure, multiple sites; M50.30 Other cervical disc degeneration, unspecified cervical region; Z79.631 Long term (current) use of antimetabolite agent; Z71.85 Encounter for immunization safety counseling | CPT/HCPCS: 99212 ==

== ENCOUNTER 2024-10-17 13:54 | Outpatient (AMB) | payer OTHER, SELFPAY ==
--- NOTE | 2024-10-17 14:20 | MHC.OFFVIS ---
Vital Signs 10/17/24 14:21 Height 4 ft 7 in Weight 99 lb BMI 23.0 BP 118/78 Blood Pressure Location Lt brachial Position Sitting Pulse 77 Pulse Source Pulse Oximeter Pulse Oximetry (%) 96 Oxygen Delivery Method Room Air Intake Visit Reasons: 6 Month F/U Intake Note: patient present for follow up migraine Allergies No Known Allergies [No Known Allergies*] Allergy (Verified 10/17/24 14:23) HPI Comments Details: 63-yr-old female presents for f/u visit for migraine, sleep difficulties, history of transverse myelitis, neck pain, and f/u of interval head/neck imaging showing right ICA/ophthalmic aneurysm.. Since the last visit, pt's f/u head/brain and C-spine MRI w/wo results were notable for a 3.5 mm right supraclinoid ICA flow void, concerning for aneurysm. We referred patient for neuro-endovascular consult at [facility] with Dr. Canales. Patient then underwent cerebral angiogram which did demonstrate a 4.5 x 4 mm right ophthalmic aneurysm with the 2.6 mm neck projecting superiorly/anteriorly. Thus, in late June 2024, patient underwent endovascular pipeline shield flow diverting stent placement for treatment of this seen aneurysm without complication. Patient states she recovered well from this procedure and has no residual effects. She was started on dual antiplatelet therapy (clopidigrol and ASA), and has been advised to continue this through 01/05/2025. She is to have f/u head CT angio in December 2024. She continues to have sleep difficulties. She notes that she typically just does not get tired. She sometimes is not sleeping at all at night. If she has not slept in a few days, may take an unintentional nap around 3 or 4pm. Her neck/stiffness also effects her sleep quality. She continues to be followed closely by Rheumatology. She states she has to get up and move, may need to move her legs at night. She does use multiple blankets decrease weight. She has a remote history of anemia. She takes 1 cup of coffee in the am, at 3pm, at 9pm with her meds. She feels if she misses a cup of coffee, she starts to feel agitated. Once, when she ran out of ground coffee, she found a little bit instant coffee and took it at 3am- and this relaxed her within 5-10 minutes. She has drank coffee this way since she was age 2. She is generally active during the day, doing housework etc.. No strenuous exercise. She feels that she could fall asleep easier on her previous ambien IR 10 mg dose then on current Ambien ER 12.5 mg dose. She previously had stopped amitriptyline, as this caused dry mouth and increased restless leg symptoms. Melatonin at bedtime before has not helped. She is having occasional migraine headache, which responds to Fioricet. Sometimes the Fioricet helps with the neck pain as well. Interval workup: 05/17/2024, MR/MR head/brain and cervical spine wo/w con: * A 3.5 mm nodular flow void along the upper margin of the right supraclinoid ICA segment is most concerning for an aneurysm for which a MRA of the head is recommended for further assessment * Stable T2 signal changes within the supratentorial white matter when compared to the prior study. There are no enhancing lesions intracranially. * Extensive T2 signal changes throughout the C3-T1 anterior and posterior elements, previously spanning the C4-T1 levels. As on the prior study, there is circumferential epidural soft tissue of enhancement at the levels of involvement that mildly impresses upon the thecal sac. Given the history of psoriatic arthritis, the sequela of inflammatory arthropathy is favored. Chronic infection could appear similar and should be clinically correlated. * The cervical nerve roots at the C4-T1 levels appear enlarged which may be related to chronic inflammatory change from the above findings. * Stable cervical spondylosis. 06/25/2024, Cerebral angiogram, demonstrated a 4.5 mm x 4 mm right ophthalmic aneurysm with a 2.6 mm neck projecting superiorly and anteriorly. [facility]LY [facility], [facility] Medical History Anemia Transverse myelitis Cubital tunnel syndrome on left Fibromyalgia Surgical History H/O carpal tunnel repair Social History Alcohol intake: never Patient Tobacco Use Status: Current everyday Tobacco user Tobacco use type: Cigarette Cigarettes Per Day: 20 Years Smoked: 39 e-Cigarette/Vaping Use: Never Used Physical Exam Vital Signs: Last Vital Signs Pulse 77 10/17/24 14:21 BP 118/78 10/17/24 14:21 Pulse Ox 96 10/17/24 14:21 Oxygen Delivery Method Room Air 10/17/24 14:21 BMI result Body Mass Index 23.0 Const General: cooperative and no acute distress Orientation/consciousness: patient oriented x3 Resp Effort & Inspection: normal respiratory effort and able to speak in complete sentences Neuro Other: Limited cervical and upper body range of motion. Needs assistance to Don her mood coat. Stands easily, steady gait. General: patient oriented x3 Cranial nerves: Yes CN's II-XII intact bilaterally Cognition (Neuro): normal cognition Gait exam (Neuro): Normal gait present Psych Appearance: grossly normal Mental Status: mental status grossly normal Speech and movement: Normal speech and movement present Affect: normal affect Attitude: cooperative Assessment & Plan Assessment & Plan (1) Insomnia: Comment: HST ([facility] 01/07) normal w/ AHI 1.7/hr and O2 valentino 87%. Code(s): G47.00 - Insomnia, unspecified Category: Medical (2) Restless leg syndrome: Code(s): G25.81 - Restless legs syndrome Category: Medical (3) Migraine with aura: Code(s): G43.109 - Migraine with aura, not intractable, without status migrainosus Category: Medical (4) White matter abnormality on MRI of brain: Code(s): R90.82 - White matter disease, unspecified Category: Medical (5) Internal carotid artery stent present: Comment: June 2024- endovascular pipeline shield flow diverting stent placement of right ICA/ophthalmic aneurysm Code(s): Z95.828 - Presence of other vascular implants and grafts Category: Medical (6) Transverse myelitis: Comment: likely related to etanercept use with mild clinical symptoms Code(s): G37.3 - Acute transverse myelitis in demyelinating disease of central nervous system Category: Medical (7) Anemia: Code(s): D64.9 - Anemia, unspecified Category: Medical Plan For h/o transverse myelitis and intracerebral white matter disease: Reviewed brain MRI as above, right ICA/ophthalmic aneurysm, which has since been stented by [facility] neuro endovascular surgeons. Stable supratentorial white matter disease. Patient continues to have multilevel T2 hyperintensities from C3-T1, likely consistent with psoriatic arthritis. Stable cervical spondylosis. Patient is scheduled to have follow-up head CT angiogram in 01/05/2025. F/u c-spine MRI w/wo- showed mild enhancement within the cord at C4-5. Previous 2022 Brain and C-spine MRI findings: C-spine MRI: Intramedullary changes from C3-C6 c/w demyelination and Brain MRI: findings of T1 signal loss in the C4 vertebral body Again check serum Aquaporin-4 AB- reordered. Patient has not eye exam yet, we will initiate a ophthalmology consult order. For migraine: Discontinue Naratriptan prn- due to recent intracranial aneurysm. Fioricet prn migraine. Previous tx trials- Sumatriptan- worsened headache. Amitriptyline- caused bothersome dry mouth Future considerations- gepant the would need to stop Fioricet. For sleep: Check labs for common etiologies of RLS. Trial gabapentin 100-300 mg daily 2-3 hours prior to bedtime- in hopes this helps neck pain, RLS s/s, and the sleep. Resume Ambien 10mg qhs prn. Discontinue Ambien 12.5mg CR qhs. Pt denies any signs of parasomnias. Advised to inform us w/ any signs of sleepwalking. Again advised to limit caffeine intake to at least 6 hours before bedtime.. Information again shared on resources to help pt improve her sleep hygiene and sleep quality. Carpal tunnel wrist splints at night prn. f/u in 4-6 months or sooner prn Orders: Orders IRON PROFILE Today D64.9 - Anemia, unspecified Vitamin B12 and Folate Today D64.9 - Anemia, unspecified TSH reflex Free T4 Today D64.9 - Anemia, unspecified Ferritin Today D64.9 - Anemia, unspecified Referrals Ophthalmology Referral H53.9 - Unspecified visual disturbance, L40.50 - Arthropathic psoriasis, unspecified Medications: New gabapentin 2-3 hours before bedtime 100 - 300 mg (1 - 3 x 100 mg) PO DAILY 30 days 90 caps 3RF zolpidem (Ambien) 10 mg PO BEDTIME 30 days PRN 30 tabs 3RF sleep Refilled [id number]-[id number] 50-325-40 mg 1 tab at onset of headache, may repeat in 4 hours (max 2 tabs/day, 4 tabs/week). 1 tab PO Q4H 30 days PRN 20 tabs 3RF pain Discontinued naratriptan Discontinued Reason: Doctor's Order take 1/2 - 1 tab at onset of headache; if no relief may repeat 1 tab after at least 4 hrs; max = 2 tabs/24 hrs orally PRN; 30 days 12 tabs 6RF migraine headache zolpidem ER (Ambien CR) Discontinued Reason: Doctor's Order 12.5 mg PO BEDTIME 30 days 30 tabs 2RF Coding Level of Care Code Est Pt Level 4 (92327) Diagnoses Insomnia G47.00 Restless leg syndrome G25.81 Migraine with aura G43.109 White matter abnormality on MRI of brain R90.82 Internal carotid artery stent present Z95.828 Transverse myelitis G37.3 Anemia D64.9
[2024-10-17 14:21] VITALS: BP 118/78; PULSE 77; O2SAT 96; BMI 23.0
--- OUTSIDE RECORDS SUMMARY | 2024-10-17 17:50 | XMS_ITS | Clinical Summary ---
Author Organization [facility] Address [address] [place] [address] Care Team Providers Care Mixer Attendant Name Role Phone Unavailable Primary Care Provider Unavailabl e Source Comments PLEASE NOTE, if this patient is a minor, it may be UNLAWFUL to discuss sensitive information that is contained in these records (such as FAMILY PLANNING, MENTAL HEALTH or SUBSTANCE ABUSE) with the minor patient's parent or other person without the patient's specific authorization.[facility] Allergies No known active allergies Medications ibuprofen (ADVIL,MOTRIN) 600 mg tablet Take 1 Tab by mouth 4 (four) times daily as needed for pain 12 Tab 01/22/2019 Active Active Problems No known active problems Social History Tobacco Use Types Packs/Day Years Used Date Smoking Tobacco: Every Day Smokeless Tobacco: Never Social Connections Answer Date Recorded Connectedness 0 06/06/2024 Financial Resource Strain Answer Date R ecorded Financial Resource Strain 0 2021 Stress Answer Date Recorded Stress 0 02/21/2022 Physical Activity Answer Date Recorded Physical Activity 0 02/21/2022 Food Insecurity Answer Date Recorded Food 0 06/13/2024 Transportation Needs Answer Date Record ed Transportation 0 02/21/2022 Housing Stability Answer Date Recorded Housing 0 02/21/2022 Safety and Environment Answer Date Logan rded Safety 0 02/21/2022 Utilities Answer Date Recorded Utilities 0 02/21/2022 Employment Answer Date Recorded Stress 0 06/06/2024 Comments Unknown Sex and Gender Information Value Date Recorded Sex Assigned at Not on file Legal Sex Female 7:45 AM PST Gender Identity Not on file Sexual Orientation Not on file Last Filed Vital Signs Vital Sign Reading Time Taken Comments Blood Pressure 135/86 02/01/2023 10:34 AM EDT Pulse 77 02/01/2023 10:34 AM EDT Temperature - - Respiratory Rate - - Oxygen Saturation - - Inhaled Oxygen Concentration - - Weight - - Height - - Body Mass Index - - Plan of Treatment Health Maintenance Due Date Last Done Comments Dental FMX/Pano 1960 Diabetes Screening 1960 HPV Screening 1960 Hepatitis C Screening 1961 Lipid Screening 1961 Pap + HPV 1961 Tobacco Cessation Counseling (#1) 1961 Tobacco Screening 1961 HIV Screening 1976 Annual Preventive Care Visit 12/08/1979 Cervical Cancer Screening 1982 Pap Smear 1982 Breast Cancer Screening (Mammogram) 2001 CT Colonography 2006 Colonoscopy 2006 Colorectal Cancer Screening 2006 FIT/gFOBT 2006 Fecal DNA 2006 Flexible Sigmoidoscopy 2006 Imm-Zoster, Recombinant (1 of 2) 12/08/2011 Imm-Pneumococcal (2 of 2 - PCV) 08/07/2015 4 Dental Prophy 12/31/2023 12/28/2022, 02/21/2022 Hypertension Screening (#1) 02/01/2024 [id number] ( - season) 2024 Imm-Influenza (#1) 2024 Dental BW 07/06/2024 07/04/2023, 0410/2022, 02/21/2022 Dental Examination 07/06/2024 07/04/2023, 0 12/28/2022, 02/21/2022 Dental Perio Charting 07/06/2024 07/04/2023 , 12/28/2022, 02/21/2022 Alcohol and Drug Screen 09/18/2024 Depression Annual Screen 09/18/2024 Imm-DTaP/Tdap/Td (2 - Td or Tdap) 01/23/2025 015 Cervical Ablation/Cold-Knife Conization Discontinued Cervical Cryotherapy Discontinued Colposcopy Discontinued Endometrial Biopsy Discontinued Excision/Leep Discontinued HPV Genotyping Discontinued Vaginal Pap Discontinued Vulvoscopy Discontinued Procedures Procedure Name Priority Date/Time Associated Diagnosis Comments COMP PERIODONTAL EVALUATION - NEW/EST PATIENT Routine 07/04/2023 10:20 AM EDT Encounter for dental examination BITEWINGS - FOUR RADIOGRAPHIC IMAGES Routine 07/04/2023 10:20 AM EDT Encounter for dental examination Full PERIODIC ORAL EVALUATION ESTABLISHED PATIENT Routine 07/04/2023 10:20 AM EDT Encounter for dental examination Full PROPHYLAXIS - ADULT Routine 023 10:20 AM EDT Encounter for dental examination and cleaning with abnormal findings Caries of enamel (incipient) Caries from Last 3 Months or Most Recently Relevant to Health Maintenance Insurance [facility] [place] MEDICAID [place]
--- OUTSIDE RECORDS SUMMARY | 2024-10-17 17:50 | XMS_ITS | Encounter Summary ---
Author Organization [facility] Address [address] [place] [address] Care Team Providers Care Stem Maker Name Role Phone Unavailable Primary Care Provider Unavailabl e Encounter Details Date Type Department Care Team (Late st Contact Info) Description 02/21/2022 Dental Interim Note [facility] Dental [address] [place] [phone] Mary Carmen Casanova Y [address] [place] [address] Social History Tobacco Use Types Packs/Day Years Used Date Smoking Tobacco: Every Day Smokeless Tobacco: Never Social Connections Answer Date Recorded Social Connections and Isolation 0 02/21/2022 Financial Resource Strain Answer Date R ecorded Financial Resource Strain 0 2021 Stress Answer Date Recorded Stress 0 02/21/2022 Physical Activity Answer Date Recorded Physical Activity 0 02/21/2022 Food Insecurity Answer Date Recorded Food 0 02/21/2022 Transportation Needs Answer Date Record ed Transportation 0 02/21/2022 Housing Stability Answer Date Recorded Housing 0 02/21/2022 Safety and Environment Answer Date Logan rded Safety 0 02/21/2022 Utilities Answer Date Recorded Utilities 0 02/21/2022 Employment Answer Date Recorded Employment 0 02/21/2022 Comments Unknown Sex and Gender Information Value Date Recorded Sex Assigned at Not on file Legal Sex Female 7:45 AM PST Gender Identity Not on file Sexual Orientation Not on file COVID-19 Exposure Response Date Recorded In the last 10 days, have yo u been in contact with someone who was confirmed or suspected to have Coronavirus/COVID-19? No / Unsure 02/21/2022 9:38 AM EDT documented as of this encounter Plan of Treatment Not on file documented as of this encounter Procedures Procedure Name Priority Date/Time Associated Diagnosis Comments 13 MO COMPOSITE - WISDOM (NON BILLABLE) Routine 02/21/2022 12:00 AM EDT 12 DO COMPOSITE - WISDOM (NON BILLABLE) Routine 02/21/2022 12:00 AM EDT 5 DO COMPOSITE - WISDOM (NON BILLABLE) Routine 02/21/2022 12:00 AM EDT 4 MO COMPOSITE - WISDOM (NON BILLABLE) Routine 02/21/2022 12:00 AM EDT 15 O AMALGAM - WISDOM (NON BILLABLE) Routine 02/21/2022 12:00 AM EDT 18 O AMALGAM - WISDOM (NON BILLABLE) Routine 02/21/2022 12:00 AM EDT 19 O AMALGAM - WISDOM (NON BILLABLE) Routine 02/21/2022 12:00 AM EDT 29 O AMALGAM - WISDOM (NON BILLABLE) Routine 02/21/2022 12:00 AM EDT 30 O AMALGAM - WISDOM (NON BILLABLE) Routine 02/21/2022 12:00 AM EDT 31 O AMALGAM - WISDOM (NON BILLABLE) Routine 02/21/2022 12:00 AM EDT documented in this encounter Visit Diagnoses Not on filedocumented in this encounter
--- OUTSIDE RECORDS SUMMARY | 2024-10-17 17:50 | XMS_ITS | Clinical Summary ---
Author Organization [facility] it Address [id number] [place] [id number] Care Team Providers Care Kitchen Designer Name Role Phone Brianna Moreno MD Primary Care Provider [phone] Social History Tobacco Use Types Packs/Day Years Used Date Smoking Tobacco: Never Assessed Sex and Gender Information Value Date Recorded Sex Assigned at Not on file Gender Identity Not on file Sexual Orientation Not on file Plan of Treatment Health Maintenance Due Date Last Done Comments DTaP,Tdap,and Td Vaccines (1 - Tdap) 1980 Cervical Cancer Screening: P ap Smear 1982 Zoster Vaccines (1 of 2) 12/08/2011 Breast Cancer Screening 05/24/2020 05/24/2018 Colorectal Cancer Screening: Colonoscopy 04/16/2024 Depression Screening 04/16/2024 HIV Screening 04/16/2024 Hepatitis C Screening 04/16/2024 Social Influencers of Health Screening 04/16/2024 COVID-19 Vaccine ( - 2023-2 5 season) 2024 Influenza Vaccine (#1) 2024 RSV Immunization Patients 60 + Years Old (1 - 1-dose 75+ series) 2036 HIB Vaccines Aged Out No longer eligi ble based on patient's age to complete this topic HPV Vaccines Aged Out No longer eligi ble based on patient's age to complete this topic Hepatitis A Vaccines Aged Out No long er eligible based on patient's age to complete this topic Hepatitis B Vaccines Aged Out No long er eligible based on patient's age to complete this topic IPV Vaccines Aged Out No longer eligi ble based on patient's age to complete this topic MMR Vaccines Aged Out No longer eligi ble based on patient's age to complete this topic Meningococcal ACWY Vaccine Aged Out N o longer eligible based on patient's age to complete this topic Pneumococcal Vaccine: Pediat rics (0 to 5 Years) and At-Risk Patients (6 to 64 Years) Aged Out No longer eligi ble based on patient's age to complete this topic RSV Immunization Patients Un karla 20 months Aged Out No longer eligible b ased on patient's age to complete this topic Varicella Vaccines Aged Out No longer eligible based on patient's age to complete this topic Procedures Procedure Name Priority Date/Time Associated Diagnosis Comments [facility] SCREENING DIGITAL Routine 05/24/2018 4:52 PM EDT Encounter for screening mammogram for malignant neoplasm of breast from Last 3 Months or Most Recently Relevant to Health Maintenance Results * NICHOLE SCREENING DIGITAL (05/24/2018 4:52 PM EDT) Anatomical Region Laterality Modality Mammography 05/24/2018 10:5 3 AM EDT Narrative 05/24/2018 4:52 PM EDT [facility] Diagnostic Imaging Department [address] [place], [place] [id number] Patient: ??ALTAGRACIA MYERS ?/Age/Sex: 1960 - 57 - F Unit#: ??[id number] ? Location/Status: ??SPDIMAM/REG CLI ? Mnemonic/Ordering Site: ??DIGSC/SPMAM Ordering Physician: ??MICHAEL DEAN MD Nichole Screening Digital - 05/24/18 - 1124 INDICATION: Screening. Patient declined tomosynthesis. History breast cancer in maternal aunt. COMPARISON: Prior mammograms dating back to 2008 TECHNIQUE: Routine views of both breasts including exaggerated CC view of the right breast were obtained using full-field direct digital mammography. Computer Aided Detection was utilized. BREAST PARENCHYMAL COMPOSITION: The breast parenchyma is composed of scattered fibroglandular densities. (Category b density ) . FINDINGS: ??There is no suspicious finding within either breast. Asymmetry in the posterior third of the left breast appears similar compared to prior studies. IMPRESSION: 1. No mammographic evidence of malignancy. 2. Annual screening mammography is recommended . OVERALL FINAL ASSESSMENT: BI-RADS Assessment Category 2: Benign. PQRI CPT II 3342 F A negative mammogram in the presence of clinically suspicious palpable abnormality does not preclude the possibility of malignancy or alter the indications for biopsy. Note: Patient information entered into a reminder system with a target due date for the next mammogram: ??CPT II 7025F [id number] Dictating Physician: ??NELLY CONNOLLY MD Electronically Signed by: ??NELLY CONNOLLY MD Dic Date/Time: ??05/24/18 1649 Sign date/Time: ??05/24/18 1652 Procedure Note Nelly Connolly MD - 09/06/2022 [facility] Diagnostic Imaging Department [address] [place] [address] Patient: ALTAGRACIA MYERSO.B./Age/Sex: 1960 - 57 - F Unit#: [id number] [facility]/Ordering Site: [facility] Ordering Physician: MICHAEL DEAN MD Nichole Screening Digital - 05/24/18 - 1129 INDICATION: Screening. Patient declined tomosynthesis. History breastcancer in maternal aunt. COMPARISON: Prior mammograms dating back to 2008 TECHNIQUE: Routine views of both breasts including exaggerated CC view ofthe right breast were obtained using full-field direct digital mammography. Computer Aided Detection was utilized. BREAST PARENCHYMAL COMPOSITION: The breast parenchyma is composed ofscattered fibroglandular densities. (Category b density ) . FINDINGS: There is no suspicious finding within either breast. Asymmetryin the posterior third of the left breast appears similar compared to prior studies. IMPRESSION: 1. No mammographic evidence of malignancy. 2. Annual screening mammography is recommended . OVERALL FINAL ASSESSMENT: BI-RADS Assessment Category 2: Benign. PQRI CPT II 3342 F A negative mammogram in the presence of clinically suspicious palpable abnormality does not preclude the possibility of malignancy or alter the indications for biopsy. Note: Patient information entered into a reminder system with a target duedate for the next mammogram: CPT II 7025F [id number] Dictating Physician: NELLY CONNOLLY MD Electronically Signed by: NELLY CONNOLLY MD Dic Date/Time: 05/24/18 1649 Sign date/Time: 05/24/18 1652 Michael Dean MD IMG BI PROCEDURES from Last 3 Months or Most Recently Relevant to Health Maintenance Care Teams Kitchen Designer Relationship Specialty Start Date End Date Brianna Moreno MD PCP - General Internal Medicine 10/21/20
== END 2024-10-17 15:24 | disposition home or self-care (01) ==
PROVIDERS: PCP Internal Medicine; Visit Provider Nurse Practitioner Family
DX: G47.00 Insomnia, unspecified (principal); G25.81 Restless legs syndrome; G43.109 Migraine with aura, not intractable, without status migrainosus; R90.82 White matter disease, unspecified; Z95.828 Presence of other vascular implants and grafts; G37.3 Acute transverse myelitis in demyelinating disease of central nervous system; D64.9 Anemia, unspecified
CPT/HCPCS: 99214

== ENCOUNTER → 2024-10-17 13:54 | Outpatient (BNVA) | payer OTHER, SELFPAY | PROVIDERS: PCP Internal Medicine; Visit Provider Nurse Practitioner Family | DX: G47.00 Insomnia, unspecified (principal); G25.81 Restless legs syndrome; G43.109 Migraine with aura, not intractable, without status migrainosus; G37.3 Acute transverse myelitis in demyelinating disease of central nervous system; R90.82 White matter disease, unspecified; D64.9 Anemia, unspecified; H53.9 Unspecified visual disturbance; L40.50 Arthropathic psoriasis, unspecified; Z95.828 Presence of other vascular implants and grafts | CPT/HCPCS: 99212 ==

== ENCOUNTER 2024-12-24 11:37 | Outpatient (REF) | payer OTHER, SELFPAY ==
--- OUTSIDE RECORDS SUMMARY | 2024-12-24 14:16 | XMS_ITS | Encounter Summary ---
Author Organization [facility] Address [address] [place] [address] Care Team Providers Care Video Game Tester Name Role Phone Unavailable Primary Care Provider Unavailabl e Encounter Details Date Type Department Care Team (Late st Contact Info) Description 02/21/2022 Dental Interim Note [facility] Dental [address] [place] [phone] Mary Carmen Casanova Y [address] [place] [address] Social History Tobacco Use Types Packs/Day Years [...]
--- OUTSIDE RECORDS SUMMARY | 2024-12-24 14:16 | XMS_ITS | Clinical Summary ---
Author Organization [facility] Address [address] [place] [address] Care Team Providers Care Manager Programs Name Role Phone Unavailable Primary Care Provider [...] Health Maintenance Due Date Last Done Comments Anxiety Screening 1961 Dental FMX/Pano 1961 Diabetes Screening 1961 HPV Screening 1961 Hepatitis C Screening 1961 Lipid Screening 1961 Pap + HPV 1961 Tobacco Cessation Counseling (#1) 1961 Tobacco Screening 1961 HIV Screening 1976 Cervical Cancer Screening 1982 Pap Smear 1982 Breast Cancer Screening (Mammogram) 2001 CT Colonography 2006 Colonoscopy 2006 Colorectal Cancer Screening 2006 FIT/gFOBT 2006 Fecal DNA 2006 Flexible Sigmoidoscopy 2006 Imm-Zoster, Recombinant (1 of 2) 12/08/2011 Imm-Pneumococcal (2 of 2 - PCV) 08/07/2015 4 Dental Prophy 12/31/2023 12/28/2022, 02/21/2022 Hypertension Screening (#1) 02/01/2024 [id number] ( - season) 2024 Imm-Influenza (#1) 2024 Dental BW 07/06/2024 07/04/2023, 04/10/2022, 02/21/2022 Dental Examination 07/06/2024 07/04/2023, 0 12/28/2022, [...] Relevant to Health Maintenance Insurance [facility] [place]
--- OUTSIDE RECORDS SUMMARY | 2024-12-24 14:16 | XMS_ITS | Clinical Summary ---
Author Organization [facility] Address [address] [place] [id number] Care Team Providers Care Casing Operator Name Role Phone Brianna Moreno MD Primary Care Provider [phone] Social History Tobacco Use Types Packs/Day Years Used Date Smoking Tobacco: Never Assessed Comments Unknown Sex and Gender Information Value Date Recorded Sex Assigned at Not on file Legal Sex Female 4:29 PM EST Gender Identity Not on file Sexual Orientation Not on file Plan of Treatment Health Maintenance Due Date Last Done Comments DTaP,Tdap,and Td Vaccines (1 - Tdap) 1980 Cervical Cancer Screening: P ap Smear 1982 Pneumococcal Vaccine: 50+ Ye ars (1 of 1 - PCV) 12/08/2011 Zoster Vaccines (1 of 2) 12/08/2011 Breast Cancer Screening 05/24/2020 05/24/2018 Colorectal Cancer Screening: Colonoscopy 04/16/2024 Depression Screening 04/16/2024 HIV Screening 04/16/2024 Hepatitis C Screening 04/16/2024 Social Influencers of Health Screening 04/16/2024 COVID-19 Vaccine ( - 2023-2 5 season) 2024 Influenza Vaccine (#1) 2024 RSV Immunization Adult Patie nts (1 - 1-dose 75+ series) 2036 HIB [...] patient's age to complete this topic Meningococcal B Vaccine Aged Out No l onger eligible based on patient's age to complete [...] Procedure Name Priority Date/Time Associated Diagnosis Comments [facility] SCREENING DIGITAL Routine 05/24/2018 4:52 PM EDT Encounter for screening mammogram for malignant neoplasm of breast from Last 3 Months or Most Recently Relevant to Health Maintenance Results * [facility] SCREENING DIGITAL (05/24/2018 4:52 PM EDT) Anatomical Region Laterality Modality Mammography 05/24/2018 10:5 3 AM EDT Narrative 05/24/2018 4:52 PM EDT [facility] Diagnostic Imaging Department [address] [place] [address] Patient: ??ALTAGRACIA MYERS ?/Age/Sex: 1960 57 - F Unit#: ??[id number] ? Location/Status: ??SPDIMAM/REG CLI ? Mnemonic/Ordering Site: ??DIGSC/SPMAM Ordering Physician: ??MICHAEL DEAN MD Nichole Screening Digital - 05/24/18 - 1129 INDICATION: Screening. Patient declined tomosynthesis. History breast [...] for the next mammogram: ??CPT II 7025F [id number] Dictating Physician: ??NELLY CONNOLLY MD Electronically Signed by: ??NELLY CONNOLLY MD Dic Date/Time: ??05/24/18 1649 Sign date/Time: ??05/24/18 1652 Procedure Note Nelly Connolly MD - 09/06/2022 [facility] Diagnostic Imaging Department [address] [place] [address] Patient: MYERS,ALTAGRACIA LyonsO.B./Age/Sex: 1960 - 57 - F Unit#: [id number] Location/Status: [facility]/REG CLI Mnemonic/Ordering Site: [facility] Ordering Physician: MICHAEL DEAN MD Nichole Screening [...] for the next mammogram: CPT II 7025F [id number] Dictating Physician: NELLY CONNOLLY MD Electronically Signed by: NELLY CONNOLLY MD Dic Date/Time: 05/24/18 1649 Sign date/Time: 05/24/18 1652 Michael Dean MD IMG BI PROCEDURES Final Result from Last 3 Months or Most Recently Relevant to Health Maintenance Care Teams Casing Operator Relationship Specialty Start Date End Date Brianna Moreno MD PCP - General Internal Medicine 10/21/20
[2024-12-24 18:41] LABS: MANUAL DIFF FLAG NO
[2024-12-24 18:55] LABS: Basophils Absolute Auto 0.1 X10*3/uL (0.0-0.2); Basophils Percent Auto 1.4 % (0-2); Eosinophils Absolute Auto 0.1 X10*3/uL (0.0-0.4); Eosinophils Percent Auto 1.4 % (0-4); Hematocrit 37.9 % (37.0-47.0); Hemoglobin 12.1 g/dl (12.0-16.0); Imm Gran Abs Auto 0.03 X10*3/uL (0.00-0.03); Imm Gran Pct Auto 0.3 % (0.0-0.4); Lymphocytes Percent Auto 29.7 % (20-40); Mean Corpuscular HGB Conc 31.9 g/dl (31.0-35.0); Mean Corpuscular Hemoglobin 28.9 pg (27.0-33.0); Mean Corpuscular Volume 90.5 fL (80.0-98.0); Mean Platelet Volume 9.2 fL (9.4-12.3); Monocytes Absolute Auto 0.6 X10*3/uL (0.1-1.2); Monocytes Percent Auto 6.3 % (2-11); Neutrophils Absolute Auto 6.3 x10*3/uL (2.0-8.3); Neutrophils Percent Auto 60.9 % (45-73); Platelet Count 477 X10*3/uL (160-400); Red Blood Count 4.19 X10*6/uL (4.20-5.50); Red Cell Distribution Width 15.9 % (11.0-16.0); White Blood Count 10.2 X10*3/uL (4.8-10.8)
[2024-12-24 19:17] LABS: Alanine Aminotransferase 16 U/L (0-31); Alkaline Phosphatase 145 U/L (39-117); Anion Gap 10 (12-20); Aspartate Amino Transferase 33 U/L (5-31); Bilirubin Total 0.1 mg/dL (0.0-1.0); Blood Urea Nitrogen 13 mg/dL (9-16); C Reactive Protein 3.64 mg/dL (< or = 0.50); Calcium 9.6 mg/dL (8.4-10.2); Carbon Dioxide 26 mmol/L (22-29); Chloride 106 mmol/L (96-108); Estimated Glomerular Filt Rate > 60; Glucose Random 65 mg/dL (60-115); Iron 61 mcg/dL (30-160); Percent Iron Saturation 21 % (15-50); Potassium 3.6 mmol/L (3.3-5.1); Sodium 138 mmol/L (135-145); Total Iron Binding Capacity 287 mcg/dL (228-428); Total Protein 8.1 g/dL (6.5-8.0); Unsaturated Iron Binding 226 ug/dL
[2024-12-24 19:25] LABS: Ferritin 60 ng/mL (10-250); TSH reflex Free T4 0.89 uIU/mL (0.32-4.0)
[2024-12-24 19:41] LABS: Folate 8.3 ng/mL (> or = 4.0); Vitamin B12 399 pg/mL (200-900)
[2024-12-24 20:41] LABS: Erythrocyte Sedimentation Rate 87 MM/HR (0-20)
[2024-12-25 05:16] LABS: HBS Num1 0.78 mIU/mL (0-7.99); HBsAGNum1 0.29 S/CO (0.00-0.99); Hepatitis B Core Antibody Nonreactive (Nonreactive); Hepatitis B Surface Antigen Negative (Negative); ~HepC Num1 0.11 S/CO (0.00-0.79); ~Hepatitis A Antibody IgM Nonreactive (Nonreactive); ~Hepatitis B Surface Antibody NONREACTIVE (Nonreactive); ~Hepatitis C Antibody Nonreactive (Nonreactive)
[2024-12-26 23:39] LABS: TS Negative Control Passed; TS Panel A 3; TS Panel B 0; TS Positive Control Passed; TSpotTB Negative (Negative)
== END 2024-12-24 11:38 | disposition home or self-care (01) ==
LOC: HO.HKASLDS 11:37
PROVIDERS: Student in an Organized Health Care Education/Training Program; Visit Provider Nurse Practitioner Family
DX: L40.50 Arthropathic psoriasis, unspecified (principal); G37.3 Acute transverse myelitis in demyelinating disease of central nervous system; D64.9 Anemia, unspecified; Z79.631 Long term (current) use of antimetabolite agent; Z11.59 Encounter for screening for other viral diseases; Z11.7 Encounter for testing for latent tuberculosis infection
CPT/HCPCS: 36415; 80053; 82607; 82728; 82746; 83540; 84443; 85025; 85652; 86052; 86140; 86481; 86704; 86706; 86709; 86803; 87340

== ENCOUNTER 2025-01-21 14:45 | Outpatient (AMB) | payer OTHER, SELFPAY ==
--- NOTE | 2025-01-21 14:45 | A.OFFVIS_ITS ---
Vital Signs 01/21/25 14:50 Height 4 ft 7 in Weight 101 lb 6.602 oz BMI 23.6 BP 115/62 Blood Pressure Location Lt brachial Position Sitting Respiration 16 Pulse 88 Pulse Source Pulse Oximeter Pulse Oximetry (%) 98 Oxygen Delivery Method Room Air Intake Visit Reasons: PsA Intake Note: Patient presents for PsA follow up. Allergies No Known Allergies [No Known Allergies*] Allergy (Verified 01/21/25 14:49) Medication List - Last Reconciled 01/21/25 by Cheyenne Huffman MD albuterol sulfate 90 mcg/actuation 2 puffs inhalation Q4-6H PRN aspirin 81 mg PO DAILY atorvastatin 40 mg PO BEDTIME 90 days baclofen 10 mg PO TID PRN budesonide-formoterol 80-4.5 mcg/actuation (Symbicort) 2 puffs inhalation BID buspirone 5 mg PO BID 30 days lyvhexutkk-kabpcdjhzlihp-xnlr 50-325-40 mg 1 tab PO Q4H PRN 30 days cholecalciferol (vitamin D3) 50 mcg PO DAILY clopidogrel 75 mg PO DAILY docusate sodium 100 mg PO DAILY PRN duloxetine 60 mg PO DAILY 30 days ferrous sulfate 325 mg PO DAILY 30 days folic acid 1 mg PO DAILY gabapentin 100 - 300 mg (1 - 3 x 100 mg) PO DAILY 30 days methotrexate sodium 20 mg (8 x 2.5 mg) PO QWEEK hgpukjzo-wfnyoeicv-VE 3.5-10,000-1 mg/mL-unit/mL-% 4 drps otic (ear) right Q8H 10 days omega 3-xxk-efb-fish oil 1,000 (120-180) mg 1 cap PO DAILY omeprazole 20 mg PO DAILY 90 days sulindac 200 mg PO DAILY tramadol 50 mg PO Q6H PRN zolpidem (Ambien) 10 mg PO BEDTIME PRN 30 days HPI Comments Details: Patient is a 64 y.o. female with hyperlipidemia complicated by coronary artery disease and character stenosis status post stenting, GERD, COPD, lumbar and cervical degenerative disease with radiculopathy, and psoriasis complicated by psoriatic arthritis here today for follow up Interval History: Patient last seen 10/03/[address] Asencio. At that time she was on Cosentyx infusions and methotrexate 20 mg weekly as well as folic acid. Her psoriatic rashes in her palms had improved as well as her arthritic symptoms. She was recovering from aneurysmal stenting done July 2024 Today, Continues to have good effectiveness with her skin and her peripheral joints Has neck pain and muscle stiffness Rheumatologic History: PsA 09/2020 treated for fibromyalgia 09/2020 MRI of the cervical spine showed changes consistent with active psoriatic arthritis as well as evidence of erosions. 11/2020 started on methotrexate- present 03/2021 started on Enbrel-11/2022 stopped due to active neck pain, and psoriasis. 12/2022- Humira with improvement of neck pain and psoriasis - DC 04/2023 due to concern for spinal transverse myelitis taltz 04/2023 DC 12/2023 ineffective Cosentyx infusions 02/2024 effective especially for skin Current Rheumatology Medication(s): Cosentyx 300mg IV monthly Methotrexate 20mg weekly Folic acid 1 mg daily [facility] Medical History (Updated 01/21/25 @ 15:02 by Cheyenne Huffman MD) Anemia Transverse myelitis Cubital tunnel syndrome on left Fibromyalgia Surgical History H/O carpal tunnel repair Social History Alcohol intake: never Patient Tobacco Use Status: Current everyday Tobacco user Tobacco use type: Cigarette Cigarettes Per Day: 20 Years Smoked: 39 e-Cigarette/Vaping Use: Never Used Review of Systems Const Details: Review of Systems Constitutional: Denies fever, chills, weight loss ENT: Denies vision changes, eye pain or eye redness, dental caries, dry mouth GI: Denies nausea, vomiting, diarrhea, abdominal pain, change in BM Pulm: Denies SOB, STEVENS, hemoptysis, wheezing Cards: Denies chest pain, palpitations Skin: Denies Raynaud's, nail changes, photosensitivity, CHILD NURSE: Denies headaches, weakness, paresthesias, recurrent falls MSK: as per HPI All other systems reviewed and are unremarkable except noted above Physical Exam Vital Signs: Last Vital Signs Pulse 88 01/21/25 14:50 Resp 16 01/21/25 14:50 BP 115/62 01/21/25 14:50 Pulse Ox 98 01/21/25 14:50 Oxygen Delivery Method Room Air 01/21/25 14:50 BMI result Body Mass Index 23.6 Vital signs reviewed Physical Examination CONSTITUITIONAL Patient alert and cooperative. Well appearing and in no apparent painful distress HEENT Conjunctiva and sclera clear. ?Pupils equal round and reactive to light. ?No lymphadenopathy. ? CHEST/RESPIRATORY SYSTEM Normal respiratory effort and able to speak in complete sentences. ?Clear to auscultation bilaterally. ?No crackles, rales, rhonchi, wheezes heard. CARDIAC SYSTEM Regular rate and rhythm. ?S1 and S2 heard no murmurs. ?Radial pulses intact bilaterally MSK Hands: ?Able to make a fist. No synovitis noted to the MCPs, PIPs or DIPs. ?No tenderness to palpation of these joints. No deformities noted. ? Wrists: ?Full range of motion at the wrists without pain. ?No tenderness to palpation or synovitis noted to the wrists. Elbows: Full range of motion without pain. No tenderness, weakness, swelling, increased warmth or erythema. Shoulders: Full range of active range of motion without pain. No tenderness, weakness, swelling, increased warmth or erythema. Hips: Full range of motion without pain. Hip bursa: No tenderness to palpation Knees: ?Full range of motion. ?No tenderness, swelling, increased warmth or erythema.?No effusion or crepitations Ankles: Full range of motion. ?No tenderness, swelling, increased warmth or erythema.? Feet: ?Negative squeeze test. ?No tenderness to palpation or swelling of the MTPs. Tender points:?No tenderness to palpation of the bilateral trapezius, supraspinatus, greater trochanters, anterior costochondral junctions, bilateral gluteal areas, bilateral suboccipital muscle insertions SKIN Skin intact without rashes. Results Reviewed Results Reviewed: Laboratory Tests 07/03/24 12/24/24 09:55 11:46 WBC 10.2 RBC 4.19 L Hgb 12.1 Hct 37.9 Plt Count 477 H ESR 87 H Sodium 138 Potassium 3.6 Chloride 106 Carbon Dioxide 26 BUN 13 Creatinine 0.66 AST 16 33 H ALT 13 16 Alkaline Phosphatase 134 H 145 H C-Reactive Protein 4.22 H 3.64 H Infectious serologies 12/24/24 11:46 Hepatitis A IgM Ab Nonreactive Hep Bs Antigen Negative Hep Bs Antibody NONREACTIVE Hep B Core Total Ab Nonreactive Hepatitis C Ab (EIA) Nonreactive TB Test (T-Spot) Com Negative Assessment & Plan Assessment & Plan (1) Psoriatic arthritis: Comment: 09/2020 treated for fibromyalgia 09/2020 MRI of the cervical spine showed changes consistent with active psoriatic arthritis as well as evidence of erosions. 11/2020 started on methotrexate- present 03/2021 started on Enbrel-11/2022 stopped due to active neck pain, and psoriasis. 12/2022- Humira with improvement of neck pain and psoriasis - DC 04/2023 due to concern for spinal transverse myelitis taltz 04/2023 DC 12/2023 ineffective Cosentyx infusions 02/2024 effective especially for skin Code(s): L40.50 - Arthropathic psoriasis, unspecified Category: Medical Plan: #PsO/PsA Patient is a 64-year-old female with psoriasis complicated by psoriatic arthritis here today for follow up. Currently in remission on Cosentyx infusions and methotrexate 20 mg weekly. Still has pretty significantly elevated inflammatory markers without any evidence of active disease. We will continue current regimen Plan - Cosentyx 300mg IV every 4 weeks - Methotrexate 20mg PO weekly - Folic acid 1mg daily - RTC 4 months - Labs before visit: CBC, CMP, ESR, CRP (2) Fibromyalgia: Code(s): M79.7 - Fibromyalgia Category: Medical Plan: #Fibromyalgia Patient with fibromyalgia. Currently on duloxetine 60 mg weekly, baclofen and tramadol 50 mg q.6 PRN. Pain is relatively well controlled. 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 Limit alcohol and avoid Bactrim ? 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 ?Risks include infections, injection site reactions, activation of inflammatory bowel disease. Benefits include improved disease activity. Discussed with patient that if she is feeling sick or having flu-like symptoms she is to hold the medication that week and resolved the following week. Plan I spent 36 minutes reviewing the record and labs, taking a history, examining the patient, discussing the treatment plan, ordering diagnostic work up and documenting in the medical record Orders: Orders Complete Blood Count Auto Diff 4 Months L40.50 - Arthropathic psoriasis, unspecified C Reactive Protein 4 Months L40.50 - Arthropathic psoriasis, unspecified Erythrocyte Sedimentation Rate 4 Months L40.50 - Arthropathic psoriasis, unspecified Comprehensive Met. Panel 4 Months L40.50 - Arthropathic psoriasis, unspecified Referrals Infusion Center Notification L40.50 - Arthropathic psoriasis, unspecified Medications: Changed From tramadol 50 mg PO Q6H PRN 120 tabs 3RF pain M79.7 - Fibromyalgia To tramadol 50 mg PO Q6H 90 days 360 tabs 1RF pain M79.7 - Fibromyalgia Refilled folic acid 1 mg PO DAILY 90 tabs 1RF L40.50 - Arthropathic psoriasis, unspecified baclofen 10 mg PO TID PRN 270 tabs 1RF for muscle spasm M54.2 - Cervicalgia methotrexate sodium 20 mg (8 x 2.5 mg) PO QWEEK 104 tabs 1RF L40.50 - Arthropathic psoriasis, unspecified Coding Level of Care Code Est Pt Level 4 (49121) Complex EM visit Add On G2211 Diagnoses Psoriatic arthritis L40.50 Fibromyalgia M79.7 longterm methotrexate user Z79.631 Long-term current use of secukinumab Z79.620
[2025-01-21 14:50] VITALS: BP 115/62; PULSE 88; RESP 16; O2SAT 98; BMI 23.6
--- OUTSIDE RECORDS SUMMARY | 2025-01-21 15:57 | XMS_ITS | Clinical Summary ---
Author Organization [facility] Address [address] [place] [id number] Care Team Providers Care Equine Intern Name Role Phone Brianna Moreno MD Primary Care Provider [phone] Social History Tobacco Use Types Packs/Day Years [...] Influencers of Health Screening 04/16/2024 COVID-19 Vaccine (2023-2 5 season) 2024 Influenza Vaccine (Season Ended) 2025 RSV Immunization Adult Patie nts (1 - [...] Name Priority Date/Time Associated Diagnosis Comments [facility] SCREENING DIGITAL Routine 05/24/2018 4:52 PM EDT Encounter for screening mammogram for malignant neoplasm of breast from Last 3 Months or Most Recently Relevant to Health Maintenance Results * [facility] SCREENING DIGITAL (05/24/2018 4:52 PM EDT) Anatomical Region Laterality Modality Mammography 05/24/2018 10:5 3 AM EDT Narrative 05/24/2018 4:52 PM EDT [facility] Diagnostic Imaging Department [address] [place] [address] Patient: ??ALTAGRACIA MYERS ?/Age/Sex: 1960 57 - F Unit#: ??[id number] ? Location/Status: ??SPDIMAM/REG CLI ? Mnemonic/Ordering Site: [...] for the next mammogram: ??CPT II 7025F [id number] Dictating Physician: ??NELLY CONNOLLY MD Electronically Signed by: ??NELLY CONNOLLY MD Dic Date/Time: ??05/24/18 1649 Sign date/Time: ??05/24/18 1652 Procedure Note Nelly Connolly MD - 09/06/2022 [facility] Diagnostic Imaging Department [address] [place] [address] Patient: MYERS,ALTAGRACIA LyonsO.B./Age/Sex: 1960 - 57 - F Unit#: [id number] Location/Status: [facility]/REG CLI Mnemonic/Ordering Site: [facility] Ordering Physician: MICHAEL DEAN MD [...] for the next mammogram: CPT II 7025F [id number] Dictating Physician: NELLY CONNOLLY MD Electronically Signed by: NELLY CONNOLLY MD Dic Date/Time: 05/24/18 1649 Sign date/Time: 05/24/18 1652 Michael Dean MD IMG BI PROCEDURES Final Result from Last 3 Months or Most Recently Relevant to Health Maintenance Care Teams Equine Intern Relationship Specialty Start Date End Date Brianna Moreno MD PCP - General Internal Medicine 10/21/20
== END 2025-01-21 15:22 | disposition home or self-care (01) ==
PROVIDERS: PCP Internal Medicine; Visit Provider Student in an Organized Health Care Education/Training Program
DX: L40.50 Arthropathic psoriasis, unspecified (principal); M79.7 Fibromyalgia; Z79.631 Long term (current) use of antimetabolite agent; Z79.620 Long term (current) use of immunosuppressive biologic
CPT/HCPCS: 99214; G2211

== ENCOUNTER → 2025-01-21 14:45 | Outpatient (BNVA) | payer OTHER, SELFPAY | PROVIDERS: PCP Internal Medicine; Visit Provider Student in an Organized Health Care Education/Training Program | DX: L40.50 Arthropathic psoriasis, unspecified (principal); M79.7 Fibromyalgia; M51.16 Intervertebral disc disorders with radiculopathy, lumbar region; M50.10 Cervical disc disorder with radiculopathy, unspecified cervical region; Z79.620 Long term (current) use of immunosuppressive biologic; Z79.631 Long term (current) use of antimetabolite agent | CPT/HCPCS: 99212 ==

== ENCOUNTER 2025-04-14 10:29 | Outpatient (AMB) | payer OTHER, SELFPAY ==
--- NOTE | 2025-04-14 10:55 | A.OFFVIS_ITS ---
Vital Signs 04/14/25 10:56 Height 4 ft 7 in Weight 96 lb 8 oz BMI 22.4 BP 118/66 Blood Pressure Location Lt brachial Position Sitting Pulse 81 Pulse Source Pulse Oximeter Pulse Oximetry (%) 96 Oxygen Delivery Method Room Air Intake Visit Reasons: 6 mo follow up Intake Note: Patient follow up on migraine/insomnia, opth notes and labs in chart Accompanied by: Self / Same As Patient Allergies No Known Allergies (No Known Allergies*) Allergy (Verified 04/14/25 11:03) Medication List - Last Reconciled 04/14/25 by SILVIA Smith albuterol sulfate 90 mcg/actuation 2 puffs inhalation Q4-6H PRN atorvastatin 40 mg PO BEDTIME 90 days baclofen 10 mg PO TID PRN budesonide-formoterol 80-4.5 mcg/actuation (Symbicort) 2 puffs inhalation BID buspirone 5 mg PO BID 30 days rvgugrmcgp-qwlzsbavussyc-ebjj 50-325-40 mg 1 tab PO Q4H PRN 30 days cholecalciferol (vitamin D3) 50 mcg PO DAILY docusate sodium 100 mg PO DAILY PRN duloxetine 60 mg PO DAILY 30 days ferrous sulfate 325 mg PO DAILY 30 days folic acid 1 mg PO DAILY galcanezumab-gnlm (Emgality Pen) 240 mg (2 mL) subcut ONCE 30 days methotrexate sodium 20 mg (8 x 2.5 mg) PO QWEEK sggeejrb-tipurnwuf-YV 3.5-10,000-1 mg/mL-unit/mL-% 4 drps otic (ear) right Q8H 10 days omega 8-vml-srt-fish oil 1,000 (120-180) mg 1 cap PO DAILY omeprazole 20 mg PO DAILY 90 days sulindac 200 mg PO DAILY tramadol 50 mg PO Q6H 30 days zolpidem (Ambien) 10 mg PO BEDTIME PRN 30 days HPI Comments Details: 64-yr-old female presents for f/u visit for migraine, sleep difficulties, history of transverse myelitis, neck pain, and h/o right ICA/ophthalmic aneurysm, s/p endovascular pipeline shield flow diverting stent placement for treatment of this seen aneurysm without complication in Jun [address] Canales in Jun 2024 12/24/2024, AQUAPORIN 4 AB, CBA, SERUM: NEGATIVE Pt reports she did not tolerate the Gabapentin, seemed to make her ambien less effective. She is having a nightly migraine- taking fioricet and ambien together- until she runs out of her fioricet. * Baseline migraine symptoms throbbing migraine a/w visual auras, shooting lights, eye pressure, blurry vision, photophobia, phonophobia, some nausea. She is having increased neck tightness, which is interfering with her sleep. Her sleep is still fragmented- the pain wakes her up and then she has to void. She continues to have BLE restless leg s/s- in general, it is more difficult to get comfortable. Patient did have interval ophthalmology eval, in per note included refractive error, amblyopia right eye, nuclear sclerosis bilateral, macular drusen bilateral without subretinal heme or CNV.? With plans to have patient follow-up for further testing including refraction, gonioscopy. She had f/u CTA head to assess the status of right ICA/ophthalmic aneurysm stent placement- which was reassuring though not fully resolved- plan for 1 yr f/u. She has been told to stop the ASA and Clopidegrol. Interval workup: 03/19/2025, head CTA: IMPRESSION: 1. Patent right ICA stent. 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 2. Periapical lucency around several maxillary teeth compatible with endodontal disease. Previous workup: 05/17/2024, MR/MR head/brain and cervical spine wo/w con: * A 3.5 mm nodular flow void along the upper margin of the right supraclinoid ICA segment is most concerning for an aneurysm for which a MRA of the head is recommended for further assessment * Stable T2 signal changes within the supratentorial white matter when compared to the prior study. There are no enhancing lesions intracranially. * Extensive T2 signal changes throughout the C3-T1 anterior and posterior elements, previously spanning the C4-T1 levels. As on the prior study, there is circumferential epidural soft tissue of enhancement at the levels of involvement that mildly impresses upon the thecal sac. Given the history of psoriatic arthritis, the sequela of inflammatory arthropathy is favored. Chronic infection could appear similar and should be clinically correlated. * The cervical nerve roots at the C4-T1 levels appear enlarged which may be related to chronic inflammatory change from the above findings. * Stable cervical spondylosis. 06/25/2024, Cerebral angiogram, demonstrated a 4.5 mm x 4 mm right ophthalmic aneurysm with a 2.6 mm neck projecting superiorly and anteriorly. [facility] Medical History (Updated 04/14/25 @ 12:43 by SILVIA Smith) Anemia Transverse myelitis Cubital tunnel syndrome on left Fibromyalgia Surgical History H/O carpal tunnel repair Social History Alcohol intake: never Patient Tobacco Use Status: Current everyday Tobacco user Tobacco use type: Cigarette Cigarettes Per Day: 20 Years Smoked: 39 e-Cigarette/Vaping Use: Never Used Physical Exam Vital Signs: Last Vital Signs Pulse 81 04/14/25 10:56 BP 118/66 04/14/25 10:56 Pulse Ox 96 04/14/25 10:56 Oxygen Delivery Method Room Air 04/14/25 10:56 BMI result Body Mass Index 22.4 Const General: cooperative and no acute distress Orientation/consciousness: patient oriented x3 Resp Effort & Inspection: normal respiratory effort and able to speak in complete sentences Neuro Other: Limited cervical and upper body range of motion. Stands easily, steady gait. General: patient oriented x3 Cranial nerves: Yes CN's II-XII intact bilaterally Cognition (Neuro): normal cognition Gait exam (Neuro): Normal gait present Psych Appearance: grossly normal Mental Status: mental status grossly normal Speech and movement: Normal speech and movement present Affect: normal affect Attitude: cooperative Assessment & Plan Assessment & Plan (1) Insomnia: Comment: [place] [place] normal w/ AHI 1.7/hr and O2 valentino 87%. Code(s): G47.00 - Insomnia, unspecified Category: Medical Qualifiers: Insomnia type: due to medical condition Qualified Code(s): G47.01 - Insomnia due to medical condition (2) Restless leg syndrome: Code(s): G25.81 - Restless legs syndrome Category: Medical (3) Migraine with aura: Comment: With chronification Code(s): G43.109 - Migraine with aura, not intractable, without status migrainosus Category: Medical Qualifiers: Status migrainosus presence: without status migrainosus Intractability: not intractable Qualified Code(s): G43.109 - Migraine with aura, not intractable, without status migrainosus (4) White matter abnormality on MRI of brain: Code(s): R90.82 - White matter disease, unspecified Category: Medical (5) Internal carotid artery stent present: Comment: June 2024- endovascular pipeline shield flow diverting stent placement of right ICA/ophthalmic aneurysm Code(s): Z95.828 - Presence of other vascular implants and grafts Category: Medical (6) Transverse myelitis: Comment: likely related to etanercept use with mild clinical symptoms. 12/24/2024, AQUAPORIN 4 AB, CBA, SERUM: NEGATIVE Code(s): G37.3 - Acute transverse myelitis in demyelinating disease of central nervous system Category: Medical (7) Anemia: Code(s): D64.9 - Anemia, unspecified Category: Medical Plan For h/o transverse myelitis and intracerebral white matter disease: 05/17/2024 Brain MRI: Stable supratentorial white matter disease, right ICA/ophthalmic aneurysm, which has since been stented by [facility] neuro endovascular surgeons. 05/17/2024 C-spine MRI: multilevel T2 hyperintensities from C3-T1, likely consistent with psoriatic arthritis. Stable cervical spondylosis. 03/19/2025, head CTA: Patent right ICA stent. 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 Periapical lucency around several maxillary teeth compatible with endodontal disease. Previous 2022 Brain and C-spine MRI findings: C-spine MRI: Intramedullary changes from C3-C6 c/w demyelination and Brain MRI: findings of T1 signal loss in the C4 vertebral body Reviewed serum Aquaporin-4 AB- negative Reviewed ophthalmology consult txui-qtzcex-wy with ophthalmology as scheduled Patient should follow-up with her dentist as scheduled. For acute migraine treatment: Discontinue Naratriptan prn- due to recent intracranial aneurysm. Fioricet prn migraine. Previous tx trials- Sumatriptan- worsened headache. Acute migraine treatment contraindications: All triptans and DHE due to known intracranial aneurysm. Future considerations- oral gepant the would need to stop Fioricet. For migraine prevention treatment: Start Emgality 120mg/ml uzox-jsrkrfwjf-ew hopes this reduces migraine frequency, severity, and possible associated increase neck tightness. Loading dose: 240mg (2 120mg/ml auto-injections) via subcutaneous injection in 2 different sites). Then 30 days after loading dose, start Maintenance dose: 120mg (120mg/ml autoinjector) subcutaneous injection every month. Important considerations: * Emgality will likely require insurance prior authorization prior to receiving it from the pharmacy. * Potential side effects include allergic reaction and injection site reactions. * Emgality injection training educational video is available to view on [employer] * Store Emgality in the refrigerator in it's original packaging in order to protect from light. * Remove Emgality at least 1 hour prior to taking the injection. * Emgality can be left out of the fridge for?up to 7 days at a temperature not above 86?F. If either of these conditions are exceeded, then Emgality must be thrown away. * Once Emgality has been stored out of refrigeration, do not place it back in the refrigerator. Previous migraine treatment trials: Amitriptyline- caused bothersome dry mouth. Gabapentin-not tolerated. Migraine prevention treatment contraindications: All beta-blockers due to COPD diagnosis. All hypertensive treatments due to low normal BP. For sleep: Reviewed lab workup for common etiologies of RLS- mild anemia, vitamin B12 399, low norm, normal folate 8.3, TSH 0.89. * We will check follow-up homocystine and methylmalonic acid with her next scheduled lab draw. Discontinue gabapentin 100-300 mg daily order not tolerated Continue Ambien 10mg qhs prn. Pt denies any signs of parasomnias. Advised to inform us w/ any signs of sleepwalking. Again advised to limit caffeine intake to at least 6 hours before bedtime.. Information again shared on resources to help pt improve her sleep hygiene and sleep quality. Carpal tunnel wrist splints at night prn. f/u in 4-6 months or sooner prn Orders: Orders Homocysteine Today D64.9 - Anemia, unspecified Methylmalonic Acid Today D64.9 - Anemia, unspecified Medications: New galcanezumab-gnlm (Emgality Pen) Loading dose: 120 mg subcu injection x2 in alternate sites (total 240 mg). To be followed by maintenance dose of 120 mg subcu q.month. 240 mg (2 mL) subcut ONCE 2 mL 0RF 30 days Discontinued gabapentin 2-3 hours before bedtime Discontinued Reason: Doctor's Order 100 - 300 mg (1 - 3 x 100 mg) PO DAILY 30 days 90 caps 6RF Coding Level of Care Code Est Pt Level 4 (16327) Diagnoses Insomnia due to medical condition G47.01 Insomnia type: due to medical condition Restless leg syndrome G25.81 Migraine with aura and without status migrainosus, not intractable G43.109 Status migrainosus presence: without status migrainosus Intractability: not intractable White matter abnormality on MRI of brain R90.82 Internal carotid artery stent present Z95.828 Transverse myelitis G37.3 Anemia D64.9
[2025-04-14 10:56] VITALS: BP 118/66; PULSE 81; O2SAT 96; BMI 22.4
--- OUTSIDE RECORDS SUMMARY | 2025-04-14 11:40 | XMS_ITS | Clinical Summary ---
Author Organization [facility] Address [address] [place] [address] Care Team Providers Care Outside Physical Damage Appraiser Name Role Phone Unavailable Primary Care Provider [...] Imm-Zoster, Recombinant (1 of 2) 12/08/2011 Imm-Pneumococcal 50+ (2 of 2 - PCV) 08/07/201508/07 Dental Prophy 12/31/2023 12/28/2022, 02/21/2022 Hypertension Screening (#1) 02/01/2024 [id number] ( - season) 2024 Dental BW 07/06/2024 07/04/2023, 0410/2022, 02/21/2022 Dental Examination 07/06/2024 07/04/2023, 0 12/28/2022, 02/21/2022 Dental Perio Charting 07/06/2024 07/04/2023 , 12/28/2022, 02/21/2022 Alcohol and Drug Screen 09/18/2024 Depression Annual Screen 09/18/2024 Imm-DTaP/Tdap/Td (2 - Td or Tdap) 01/23/2025 015 Imm-Influenza (#1) 2025 Cervical Ablation/Cold-Knife Conization Discontinued Cervical Cryotherapy Discontinued [...] Most Recently Relevant to Health Maintenance Insurance [facility]
--- OUTSIDE RECORDS SUMMARY | 2025-04-14 11:40 | XMS_ITS | Clinical Summary ---
Author Organization [address] [facility] Address [address] [place] [address] Phone Care Team Providers Care Police Aide Name Role Phone Brianna Moreno MD Primary Care Provider [phone] Medications atorvastatin (LIPITOR) 10 mg tablet Take 8 tablets (80 mg total) by mouth at bedtime. Active citalopram (CeleXA) 40 mg tablet Take 1 tablet (40 mg total) by mouth 1 (one) time each day. Active omeprazole OTC (PriLOSEC OTC) 20 mg EC tablet Take 1 tablet (20 mg total) by mouth 1 (one) time each day. Do not crush, chew, or split. Active gabapentin (NEURONTIN) 600 mg tablet Take 1 tablet (600 mg total) by mouth 1 (one) time each day. Active clonazePAM (KlonoPIN) 0.5 mg tablet Take 1 tablet (0.5 mg total) by mouth 2 (two) times a day. Max Daily Amount: 1 mg Active ferrous sulfate 325 mg (65 mg iron) EC tablet Take 1 tablet (325 mg total) by mouth 3 (three) times a day with meals. Do not crush, chew, or split. Active butalbital-acet aminophen-caffe ine (FIORICET, ESGIC) 50-325-40 mg per tablet Take 1 tablet by mouth every 4 (four) hours if needed for headaches. Active albuterol HFA (PROAIR HFA ; PROVENTIL HFA ; VENTOLIN HFA) 90 mcg/actuation inhaler Inhale 2 puffs by mouth every 6 (six) hours if needed for wheezing. Active methotrexate (TREXALL) 5 mg tablet Take by mouth 1 (one) time per week Follow directions carefully, and ask to explain any part you do not understand. Take exactly as directed. Active mometasone-form oterol (Dulera) 100-5 mcg/actuation inhaler Inhale 2 puffs by mouth 2 (two) times a day. Rinse mouth with water after use to reduce aftertaste and incidence of candidiasis. Do not swallow. Active fluticasone-billy meterol (ADVAIR DISKUS) 250-50 mcg/dose diskus inhaler Inhale 1 puff by mouth 2 (two) times a day. Rinse mouth with water after use to reduce aftertaste and incidence of candidiasis. Do not swallow. Active budesonide-form oteroL (SYMBICORT) 160-4.5 mcg/actuation inhaler Inhale 2 puffs by mouth 2 (two) times a day. Rinse mouth with water after use to reduce aftertaste and incidence of candidiasis. Do not swallow. Active Active Problems Problem Noted Date Diagnosed Date COPD (chronic obstructive pu lmonary disease) ([facility] V24, [facility] V28) 02/21/2025 Psoriatic arthritis ([facility] V24, [facility] V28) 0 02/21/2025 Chronic neck pain 02/21/2025 Lung nodule 02/21/2025 GERD (gastroesophageal reflux disease) Nicotine addiction 02/21/2025 Social History Tobacco Use Types Packs/Day Years Used Date Smoking Tobacco: Never Assessed Comments Unknown Sex and Gender Information Value Date Recorded Sex Assigned at Not on file Legal Sex Female 4:29 PM EST Gender Identity Not on file Sexual Orientation Not on file Plan of Treatment Health Maintenance Due Date Last Done Comments COVID-19 Vaccine (#1) 1966 DTaP,Tdap,and Td Vaccines (1 - Tdap) 1980 Pneumococcal Vaccine: 50+ Ye ars (1 of 2 - PCV) 1980 Cervical Cancer Screening: P ap Smear 1982 Zoster Vaccines (1 of 2) 12/08/2011 Breast Cancer Screening 05/24/2020 05/24/2018 RSV Immunization Adult Patie nts (1 - Risk 60-74 years 1-dose series) 2021 Colorectal Cancer Screening: Colonoscopy 04/16/2024 HIV Screening 04/16/2024 Hepatitis C Screening 04/16/2024 Social Influencers of Health Screening 04/16/2024 Depression Screening 09/18/2024 Influenza Vaccine (#1) 2025 HIB Vaccines Aged Out No longer eligi [...] Procedure Name Priority Date/Time Associated Diagnosis Comments [facility] SCREENING DIGITAL Routine 05/24/2018 4:52 PM EDT Encounter for screening mammogram for malignant neoplasm of breast from Last 3 Months or Most Recently Relevant to Health Maintenance Results * NICHOLE SCREENING DIGITAL (05/24/2018 4:52 PM EDT) Anatomical Region Laterality Modality Mammography 05/24/2018 10:5 3 AM EDT Narrative 05/24/2018 4:52 PM EDT [facility] Diagnostic Imaging Department [address] [place] [address] Patient: ALTAGRACIA MYERS /Age/Sex: 1960 - 57 - F Unit#: [id number] Location/Status: SPDIMAM/REG CLI Mnemonic/Ordering Site: [facility] Ordering Physician: MICHAEL DEAN MD Nichole Screening Digital - 05/24/18 - 112 INDICATION: Screening. Patient declined tomosynthesis. History breast [...] target due date for the next mammogram: CPT II 7025F [id number] Dictating Physician: NELLY CONNOLLY MD Electronically Signed by: NELLY CONNOLLY MD Dic Date/Time: 05/24/18 1649 Sign date/Time: 05/24/18 1652 Procedure Note Nelly Connolly MD - 09/06/2022 [facility] Diagnostic Imaging Department [address] [place] [id number] Patient: ALTAGRACIA MYERS /Age/Sex: 1960 - 57 - F Unit#: [id number] Location/Status: SPDIMAM/REG CLI Mnemonic/Ordering Site: [facility] Ordering Physician: MICHAEL DEAN MD Nichole Screening Digital - 05/24/18 - 112 INDICATION: Screening. Patient declined tomosynthesis. History breastcancer [...] for the next mammogram: CPT II 7025F [id number] Dictating Physician: NELLY CONNOLLY MD Electronically Signed by: NELLY CONNOLLY MD Dic Date/Time: 05/24/18 1649 Sign date/Time: 05/24/18 1652 Michael Dean MD IMG BI PROCEDURES Final Result from Last 3 Months or Most Recently Relevant to Health Maintenance Insurance [facility] Care Teams Police Aide Relationship Specialty Start Date End Date Brianna Moreno MD [address] [place] [id number] PCP - General Internal Medicine 01/31/25
== END 2025-04-14 11:51 | disposition home or self-care (01) ==
LOC: HO.HSMS 10:30
PROVIDERS: PCP Internal Medicine; Visit Provider Nurse Practitioner Family
DX: G47.01 Insomnia due to medical condition (principal); G25.81 Restless legs syndrome; G43.109 Migraine with aura, not intractable, without status migrainosus; R90.82 White matter disease, unspecified; Z95.828 Presence of other vascular implants and grafts; G37.3 Acute transverse myelitis in demyelinating disease of central nervous system; D64.9 Anemia, unspecified
CPT/HCPCS: 99214

== ENCOUNTER → 2025-04-14 10:29 | Outpatient (BNVA) | payer OTHER, SELFPAY | PROVIDERS: PCP Internal Medicine; Visit Provider Nurse Practitioner Family | DX: G47.01 Insomnia due to medical condition (principal); G25.81 Restless legs syndrome; G43.109 Migraine with aura, not intractable, without status migrainosus; R90.82 White matter disease, unspecified; Z95.828 Presence of other vascular implants and grafts; G37.3 Acute transverse myelitis in demyelinating disease of central nervous system; D64.9 Anemia, unspecified | CPT/HCPCS: 99212 ==

== ENCOUNTER 2025-05-27 11:08 | Outpatient (AMB) | payer OTHER, SELFPAY ==
--- NOTE | 2025-05-27 11:31 | A.OFFVIS_ITS ---
Vital Signs 05/27/25 11:35 Height 4 ft 7 in Weight 97 lb 14.164 oz BMI 22.7 BP 115/64 Blood Pressure Location Lt brachial Position Sitting Pulse 80 Pulse Source Pulse Oximeter Pulse Oximetry (%) 97 Oxygen Delivery Method Room Air Intake Visit Reasons: f/u PsA Intake Note: Patient presents for PsA follow up. Allergies No Known Allergies (No Known Allergies*) Allergy (Verified 05/27/25 11:35) Medication List - Last Reconciled 05/27/25 by Cheyenne Huffman MD albuterol sulfate 90 mcg/actuation 2 puffs inhalation Q4-6H PRN atorvastatin 40 mg PO BEDTIME 90 days baclofen 10 mg PO TID PRN budesonide-formoterol 80-4.5 mcg/actuation (Symbicort) 2 puffs inhalation BID buspirone 5 mg PO BID 30 days mbxiwcwyih-oldtelbyktdgq-mhgs 50-325-40 mg 1 tab PO Q4H PRN 30 days cholecalciferol (vitamin D3) 50 mcg PO DAILY docusate sodium 100 mg PO DAILY PRN duloxetine 60 mg PO DAILY 30 days ferrous sulfate 325 mg PO DAILY 30 days folic acid 1 mg PO DAILY galcanezumab-gnlm (Emgality Pen) 240 mg (2 mL) subcut ONCE 30 days methotrexate sodium 20 mg (8 x 2.5 mg) PO QWEEK qnomjgwn-fncvdsqgu-NV 3.5-10,000-1 mg/mL-unit/mL-% 4 drps otic (ear) right Q8H 10 days omega 0-dxq-eio-fish oil 1,000 (120-180) mg 1 cap PO DAILY omeprazole 20 mg PO DAILY 90 days sulindac 200 mg PO DAILY tramadol 50 mg PO Q6H 30 days zolpidem (Ambien) 10 mg PO BEDTIME PRN 30 days HPI Comments Details: Patient is a 64 y.o. female with hyperlipidemia complicated by coronary artery disease and character stenosis status post stenting, GERD, COPD, lumbar and cervical degenerative disease with radiculopathy, and psoriasis complicated by psoriatic arthritis here today for follow up Interval History: Patient last seen 01/21/25 with me - On Cosentyx 300mg IV every 4 weeks, methotrexate 20mg weekly and folic acid 1 mg daily - Continues to have good effectiveness with her skin and her peripheral joints - has neck pain and muscle stiffness Today - On Cosentyx 300mg IV every 4 weeks, methotrexate 20mg weekly and folic acid 1 mg daily - Complains of neck pain and knee pain - Palmoplantar PsO improved - No prolonged AM stiffness Rheumatologic History: PsA 09/2020 treated for fibromyalgia 09/2020 MRI of the cervical spine showed changes consistent with active psoriatic arthritis as well as evidence of erosions. 11/2020 started on methotrexate- present 03/2021 started on Enbrel-11/2022 stopped due to active neck pain, and psoriasis. 12/2022- Humira with improvement of neck pain and psoriasis - DC 04/2023 due to concern for spinal transverse myelitis 04/2023 Taltz. DC 12/2023 ineffective 02/2024 Cosentyx infusions effective especially for skin Current Rheumatology Medication(s): Cosentyx 300mg IV monthly Methotrexate 20mg weekly Folic acid 1 mg daily [facility] Medical History (Updated 04/14/25 @ 12:43 by SILVIA Smith) Anemia Transverse myelitis Cubital tunnel syndrome on left Fibromyalgia Surgical History H/O carpal tunnel repair Social History Alcohol intake: never Patient Tobacco Use Status: Current everyday Tobacco user Tobacco use type: Cigarette Cigarettes Per Day: 20 Years Smoked: 39 e-Cigarette/Vaping Use: Never Used Review of Systems Const Details: Review of Systems Constitutional: Denies fever, chills, weight loss ENT: Denies vision changes, eye pain or eye redness, dental caries, dry mouth GI: Denies nausea, vomiting, diarrhea, abdominal pain, change in BM Pulm: Denies SOB, STEVENS, hemoptysis, wheezing Cards: Denies chest pain, palpitations Skin: Denies Raynaud's, rash, nail changes, photosensitivity, 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 Well appearing and in no apparent painful distress MSK Hands * Right Hand: Able to make a fist. No swelling or tenderness to palpation of the MCPs, PIPs or DIPs. * Left Hand: Able to make a fist. No swelling or tenderness to palpation of the MCPs, PIPs or DIPs. * Herbedens nodes noted bilaterally Wrists * Right Wrist: Full ROM to flexion and extension. No swelling or TTP * Left Wrist: Full ROM to flexion and extension. No swelling or TTP Elbows * Right Elbow: Full ROM. No swelling or TTP. No TTP of the medial epicondyle. No TTP of the lateral epicondyle * Left Elbow: Full ROM. No swelling or TTP. No TTP of the medial epicondyle. No TTP of the lateral epicondyle Shoulders * Right shoulder: Full ROM. No swelling noted. No TTP of the AC joint. No TTP of the subacromial bursa. No TTP of the posterior shoulder * Left shoulder: Full ROM. No swelling noted. No TTP of the AC joint. No TTP of the subacromial bursa. No TTP of the posterior shoulder Knees * Right knee: Full ROM. No swelling noted. No TTP of the knee joint line. No TTP of pes anserine bursa * Left knee: Full ROM. No swelling noted. No TTP of the knee joint line. No TTP of pes anserine bursa. * Crepitations felt bilaterally Ankles * Right ankle: Good ankle dorsiflexion and plantar flexion. No swelling. No TTP of the ankle joint * Left ankle: Good ankle dorsiflexion and plantar flexion. No swelling. No TTP of the ankle joint Feet * Right foot: Negative squeeze test * Left foot: Negative squeeze test Tender points? * No tenderness to palpation of the bilateral trapezius, supraspinatus, anterior costochondral junctions, bilateral suboccipital muscle insertions SKIN Palm with evidence of healed PsO rashes Vital Signs: Last Vital Signs Pulse 80 05/27/25 11:35 BP 115/64 05/27/25 11:35 Pulse Ox 97 05/27/25 11:35 Oxygen Delivery Method Room Air 05/27/25 11:35 BMI result Body Mass Index 22.7 Results Reviewed Results Reviewed: Laboratory Tests 07/03/24 12/24/24 09:55 11:46 WBC 10.2 RBC 4.19 L Hgb 12.1 Hct 37.9 Plt Count 477 H ESR 87 H Sodium 138 Potassium 3.6 Chloride 106 Carbon Dioxide 26 BUN 13 Creatinine 0.66 AST 16 33 H ALT 13 16 Alkaline Phosphatase 134 H 145 H C-Reactive Protein 4.22 H 3.64 H Infectious serologies 12/24/24 11:46 Hepatitis A IgM Ab Nonreactive Hep Bs Antigen Negative Hep Bs Antibody NONREACTIVE Hep B Core Total Ab Nonreactive Hepatitis C Ab (EIA) Nonreactive TB Test (T-Spot) Com Negative Assessment & Plan Assessment & Plan (1) Psoriatic arthritis: Comment: 09/2020 treated for fibromyalgia 09/2020 MRI of the cervical spine showed changes consistent with active psoriatic arthritis as well as evidence of erosions. 11/2020 started on methotrexate- present 03/2021 started on Enbrel-11/2022 stopped due to active neck pain, and psoriasis. 12/2022- Humira with improvement of neck pain and psoriasis - DC 04/2023 due to concern for spinal transverse myelitis taltz 04/2023 DC 12/2023 ineffective Cosentyx infusions 02/2024 effective especially for skin Code(s): L40.50 - Arthropathic psoriasis, unspecified Category: Medical Plan: #PsO/PsA Patient is a 64-year-old female with psoriasis complicated by psoriatic arthritis here today for follow up. Currently in remission on Cosentyx infu sions and methotrexate 20 mg weekly. Still has pretty significantly elevated inflammatory markers without any evidence of active disease. We will continue current regimen Plan - Cosentyx 300mg IV every 4 weeks - Methotrexate 20mg PO weekly - Folic acid 1mg daily - RTC 6 months - Labs before visit: CBC, CMP, ESR, CRP (2) Fibromyalgia: Code(s): M79.7 - Fibromyalgia Category: Medical Plan: #Fibromyalgia Patient with fibromyalgia. Currently on duloxetine 60 mg weekly, baclofen and tramadol 50 mg q.6 PRN. Pain is relatively well controlled. Advised stretching exercises (3) terminal gauger methotrexate user: Code(s): Z79.631 - terminal gauger (current) use of antimetabolite agent Category: Medical Plan: #Long-term Current Use of Methotrexate Discussed with patient the benefits and risks of methotrexate for managing their rheumatic condition Benefits include reduced pain, reduced mortality, maintenance of remission and reduction of flares Risks include oral ulcers, photosensitivity, hepatotoxicity, hematologic toxicity, pneumonitis, flu-like symptoms (especially day after administration), nodulosis, lymphomas ? Limit alcohol and avoid Bactrim ? Monitoring: ?CBC, BMP, LFTs every 3-4 months and hepatitis serologies as needed (4) Long-term current use of secukinumab: Code(s): Z79.620 - terminal gauger (current) use of immunosuppressive biologic Plan: #terminal gauger treatment with IL 17 inhibitors (Cosentyx) Risks and benefits of IL 17 inhibitors discussed with the patient. ?Risks include infections, injection site reactions, activation of inflammatory bowel disease. Benefits include improved disease activity. Discussed with patient that if she is feeling sick or having flu-like symptoms she is to hold the medication that week and resolved the following week. Plan I spent 30 minutes reviewing the record and labs, taking a history, examining the patient, discussing the treatment plan, ordering diagnostic work up and documenting in the medical record Coding Level of Care Code Est Pt Level 4 (31425) Complex EM visit Add On G2211 Diagnoses Psoriatic arthritis L40.50 Fibromyalgia M79.7 intermediate methotrexate user Z79.631 Long-term current use of secukinumab Z79.620
[2025-05-27 11:35] VITALS: BP 115/64; PULSE 80; O2SAT 97; BMI 22.7
--- OUTSIDE RECORDS SUMMARY | 2025-05-27 13:31 | XMS_ITS | Clinical Summary ---
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 Role Phone Unavailable Primary Care Provider [...] 12/31/2023 12/28/2022, 02/21/2022 Hypertension Screening (#1) 02/01/2024 Dental BW 07/06/2024 07/04/2023, 04/1 10/2022, 02/21/2022 Dental Examination 07/06/2024 07/04/2023, 0 12/28/2022, 02/21/2022 Dental Perio Charting 07/06/2024 07/04/2023 , 12/28/2022, 02/21/2022 Alcohol and Drug Screen 09/18/2024 Depression Annual Screen 09/18/2024 Imm-DTaP/Tdap/Td (2 - Td or Tdap) 01/23/2025 015 Egy-[id number]-50 ( season) 2025 Imm-Influenza (#1) 2025 Cervical Ablation/Cold-Knife Conization Discontinued [...] Most Recently Relevant to Health Maintenance Insurance [facility] [place]
--- OUTSIDE RECORDS SUMMARY | 2025-05-27 13:31 | XMS_ITS | Encounter Summary ---
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
--- OUTSIDE RECORDS SUMMARY | 2025-05-27 13:31 | XMS_ITS | Clinical Summary ---
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 Name Role Phone Brianna Moreno MD Primary Care Provider [phone] Medications atorvastatin (LIPITOR) 10 mg tablet Take [...] Date COPD (chronic obstructive pu lmonary disease) ([facility] V24, [facility] V28) 02/21/2025 Psoriatic arthritis ([facility] V24, [facility] V28) 0 02/21/2025 Chronic neck pain 02/21/2025 [...] Procedure Name Priority Date/Time Associated Diagnosis Comments [facility] SCREENING DIGITAL Routine 05/24/2018 4:52 PM EDT Encounter for screening mammogram for malignant neoplasm of breast from Last 3 Months or Most Recently Relevant to Health Maintenance Results * [facility]HOLE SCREENING DIGITAL (05/24/2018 4:52 PM EDT) Anatomical Region Laterality Modality Mammography 05/24/2018 10:5 3 AM EDT Narrative 05/24/2018 4:52 PM EDT [facility] Diagnostic Imaging Department [address] [place] [address] Patient: ALTAGRACIA MYERS /Age/Sex: 1960 - 57 - F Unit#: [id number] Location/Status: SPDIMAM/REG CLI Mnemonic/Ordering Site: [facility] Ordering Physician: MICHAEL DEAN MD Nichole [...] for the next mammogram: CPT II 7025F [id number] Dictating Physician: NELLY CONNOLLY MD Electronically Signed by: NELLY CONNOLLY MD Dic Date/Time: 05/24/18 1649 Sign date/Time: 05/24/18 1652 Procedure Note Nelly Connolly MD - 09/06/2022 [facility] Diagnostic Imaging Department [address] [place] [id number] Patient: ALTAGRACIA MYERS /Age/Sex: 1960 - 57 - F Unit#: [id number] Location/Status: SPDIMAM/REG CLI Mnemonic/Ordering Site: [facility] Ordering Physician: MICHAEL DEAN MD Nichole [...] for the next mammogram: CPT II 7025F [id number] Dictating Physician: NELLY CONNOLLY MD Electronically Signed by: NELLY CONNOLLY MD Dic Date/Time: 05/24/18 1649 Sign date/Time: 05/24/18 1652 Michael Dean MD IMG BI PROCEDURES Final Result from Last 3 Months or Most Recently Relevant to Health Maintenance Insurance [facility] [employer] Care Teams Boiler House Operator Relationship Specialty Start Date End Date Brianna Moreno MD [address] [place] [id number] PCP - General Internal Medicine 01/31/25
== END 2025-05-27 12:34 | disposition home or self-care (01) ==
LOC: HO.RHES 11:09
PROVIDERS: PCP Internal Medicine; Visit Provider Student in an Organized Health Care Education/Training Program
DX: L40.50 Arthropathic psoriasis, unspecified (principal); M79.7 Fibromyalgia; Z79.631 Long term (current) use of antimetabolite agent; Z79.620 Long term (current) use of immunosuppressive biologic
CPT/HCPCS: 99214

== ENCOUNTER → 2025-05-27 11:08 | Outpatient (BNVA) | payer OTHER, SELFPAY | PROVIDERS: PCP Internal Medicine; Visit Provider Student in an Organized Health Care Education/Training Program | DX: L40.50 Arthropathic psoriasis, unspecified (principal); M79.7 Fibromyalgia; Z79.631 Long term (current) use of antimetabolite agent; Z79.620 Long term (current) use of immunosuppressive biologic; Z87.891 Personal history of nicotine dependence | CPT/HCPCS: 99212 ==

== ENCOUNTER 2025-08-19 10:10 | Outpatient (AMB) | payer OTHER, SELFPAY ==
--- NOTE | 2025-08-19 10:18 | MHC.OFFVIS ---
Vital Signs 08/19/25 10:25 Height 4 ft 7 in Weight 98 lb 6 oz BMI 22.9 BP 125/73 Blood Pressure Location Lt brachial Position Sitting Pulse 79 Pulse Source Pulse Oximeter Pulse Oximetry (%) 96 Oxygen Delivery Method Room Air Intake Visit Reasons: Spondylosis w/o myelopathy, radiculopathy cervical Intake Note: Pain today 06/27 Hrbp Required: No Accompanied by: Family/Other Allergies No Known Allergies (No Known Allergies*) Allergy (Verified 08/19/25 10:28) HPI Comments Details: The patient is a 64-year-old female presenting for an initial evaluation of chronic neck pain. The patient's history is significant for fibromyalgia diagnosed at age 21, degenerative disc disease in the cervical and lumbar spine with radiculopathy, psoriasis complicated by psoriatic arthritis, coronary artery disease with stenting, fibromyalgia and COPD. Past medical history also includes a brain aneurysm behind the eye about a year ago, migraines, anxiety, depression, restless leg syndrome, and a history of left foot drop. The chronic neck pain has been present for over 10 years and is attributed to psoriasis and arthritis. The pain is described as constant, throbbing, and pounding, radiating to both arms to the elbow, shoulders, and the back. The pain is rated 7-10/10 during the day and increases to 10/10 at bedtime, affecting sleep and daily activities. It is exacerbated by movement and changes in weather. Previous treatments for pain have included conservative management which was not successful, and cortisone injections which did not work. Current medications include methotrexate for psoriatic arthritis, tramadol prescribed by Rheumatology, baclofen, Fioricet for migraines, and duloxetine. The patient was previously on gabapentin, which was helpful, but it was discontinued for an unknown reason. The patient has also tried topical rubs and massage, but has not had physical therapy for this issue, nor tried TENS, acupuncture, or home day care provider. The patient smokes one pack of cigarettes per day but denies alcohol or marijuana use. The patient does not drive. - Onset: Over 10 years. - Location: Neck, back, and shoulders. - Radiation: Radiates to both arms down to the elbow level. - Character: Described as constant, throbbing, pounding, dull, hurting, aching, heavy, and spasming with tightness. - Severity: 7-10/10 during the day, worsening to 10/10 at bedtime. - Exacerbating Factors: Worsened by any movement, cold weather, and rainy or snowy weather. - Associated Symptoms: Causes constant fatigue. - Functional Impact: The pain affects sleep, daily activities, and general functioning. - Affect: The patient reports feeling tired all the time due to pain and has a history of anxiety and depression. - Analgesia: The patient takes tramadol, which is helpful, as well as baclofen. - Activities of Daily Living: Pain affects sleep, daily activities, and functioning with every movement. - Adverse Effects: Not discussed. - Aberrant Drug-Related Behaviors: None noted, though the patient is on tramadol. [facility] Medical History (Updated 08/21/25 @ 21:33 by SILVIA Molina) Anemia Transverse myelitis Cubital tunnel syndrome on left Fibromyalgia Surgical History H/O carpal tunnel repair Social History Alcohol intake: never Patient Tobacco Use Status: Current everyday Tobacco user Tobacco use type: Cigarette Cigarettes Per Day: 20 Years Smoked: 39 e-Cigarette/Vaping Use: Never Used Review of Systems Const Details: - Constitutional: Reports feeling tired all the time. - Musculoskeletal: Reports chronic neck, back, and shoulder pain. - Neurological: Reports pain radiating to the arms, shoulders, and back. All systems reviewed & are unremarkable except as noted in HPI and below Physical Exam Vital Signs: Last Vital Signs Pulse 79 08/19/25 10:25 BP 125/73 08/19/25 10:25 Pulse Ox 96 08/19/25 10:25 Oxygen Delivery Method Room Air 08/19/25 10:25 BMI result Body Mass Index 22.9 General: Appears afebrile. Alert and oriented. Mood and affect appropriate. Follows and participates in conversation appropriately. Respiratory effort is unlabored. No cough. Able to transition from sit to stand unassisted. Ambulates with bilaterally normal heel strike and toe off. Multiple widespread TTPs 16/16 bilaterally, including upper and lower extremities. Neck Neck: Yes normal visual inspection, Yes no lymphadenopathy, Yes supple, No anterior neck swelling, Yes no JVD, No prominent supraclavicular fat pad and No prominent dorsocervical fat pad Back/Spine/Pelvis Cervical Spine: No collar present, No Lhermitte's sign positive, loss of normal cervical lordosis, cervical muscular tenderness, pain with cervical ROM (limited ROM due to pain with extension and lateral rotations), No cervical spasm, No Cervical spine tenderness and No step off deformity Thoracic/Lumbar Spine: thoracic and lumbar spine normal to inspection, Lasegue's sign negative, straight leg raise negative bilaterally, pain with thoraco-lumbar ROM, paraspinal muscle tenderness, thoraco-lumbar ROM limited, No thoracic spinal tenderness and No lumbar spinal tenderness Sacroiliac joints: bilaterally tender to palpation Results Reviewed Results Reviewed: MR CERVICAL SPINE WITH AND WITHOUT CONTRAST MR BRAIN WITH AND WITHOUT CONTRAST 06/05/24 CLINICAL INFORMATION: White matter disease. COMPARISON: Brain and cervical spine MRI March 09, 2023 and December 22, 2022. TECHNIQUE: Multiplanar multisequence MR imaging of the brain and cervical spine obtained without and following the administration of 4 mL of gadolinium this intravenous contrast without complication. FINDINGS: BRAIN MRI: Stable T2 signal changes within the supratentorial white matter when compared to the prior study. There are no enhancing lesions intracranially. There is no hydrocephalus, extra-axial surface collection, or herniation. The major flow voids at the skull base are preserved. A 3.5 mm nodular flow void along the upper margin of the right supraclinoid ICA segment is most concerning for an aneurysm for which a MRA of the head is recommended for further assessment. There is no acute infarct on diffusion-weighted imaging. There is no intracranial hemorrhage on the gradient recalled echo acquisition. The midline structures are normal. The cerebellar tonsils are normally positioned. The cerebellum and brainstem are normal. The craniocervical junction is normal. Osseous marrow signal intensity is homogenous. The visualized soft tissues are unremarkable. CERVICAL SPINE MRI: Extensive T2 signal changes throughout the C3-T1 anterior and posterior elements, previously spanning the C4-T1 levels. As on the prior study, there is circumferential epidural soft tissue of enhancement at the levels of involvement that mildly impresses upon the thecal sac. Given the history of psoriatic arthritis, the sequela of inflammatory arthropathy is favored. Chronic infection could appear similar and should be clinically correlated. Vertebral body heights are maintained. Severe disc volume loss at the C4-C5, C5-C6, C6-C7, C7-T1 levels. No definite cord signal changes when accounting for artifact. The cervical arterial flow voids are maintained. C2-C3: Diffuse annular disc bulge. Uncovertebral joint spurring and facet arthropathy results in mild right-sided foraminal encroachment. C3-C4: Uncovertebral joint spurring and facet arthropathy result in mild to moderate left and mild right foraminal stenosis which is unchanged. Annular disc bulge and ligamentum flavum thickening results in mild to moderate central canal stenosis which is unchanged. C4-C5: Disc osteophyte mildly narrows the central canal. Uncovertebral joint spurring and arthropathy results in mild bilateral foraminal encroachment which is unchanged. C5-C6: Shallow left paracentral disc protrusion posterior disc contour is normal. No central canal stenosis and no foraminal stenosis. Mildly narrows the central canal. There is no foraminal stenosis. C6-C7: Uncovertebral joint spurring and facet arthropathy result in mild bilateral foraminal encroachment which is unchanged. C7-T1: Uncovertebral joint spurring and facet arthropathy result in mild bilateral foraminal encroachment which is unchanged. IMPRESSION: * A 3.5 mm nodular flow void along the upper margin of the right supraclinoid ICA segment is most concerning for an aneurysm for which a MRA of the head is recommended for further assessment * Stable T2 signal changes within the supratentorial white matter when compared to the prior study. There are no enhancing lesions intracranially. * Extensive T2 signal changes throughout the C3-T1 anterior and posterior elements, previously spanning the C4-T1 levels. As on the prior study, there is circumferential epidural soft tissue of enhancement at the levels of involvement that mildly impresses upon the thecal sac. Given the history of psoriatic arthritis, the sequela of inflammatory arthropathy is favored. Chronic infection could appear similar and should be clinically correlated. * The cervical nerve roots at the C4-T1 levels appear enlarged which may be related to chronic inflammatory change from the above findings. * Stable cervical spondylosis. XR CERVICAL SPINE 10/06/20 CLINICAL INFORMATION: Neck pain. COMPARISON: None TECHNIQUE: Three views of the cervical spine were obtained. FINDINGS: The C7 vertebral body is not well visualized on the lateral view There is curvature of the lower cervical and upper thoracic spine to the right. Bone alignment is otherwise normal. No fracture or dislocation is seen. There is degenerative spondylosis and degenerative disc disease from C4-C5 to C6-C7. Prevertebral soft tissues appear prominent. No abnormal air collection or soft tissue foreign body is seen. IMPRESSION: Limited visualization of C7. Severe degenerative spondylosis and degenerative disc disease from C4-C5 to C6-C7. Prominent prevertebral soft tissues anterior to the lower cervical spine. Assessment & Plan Assessment & Plan (1) Neck pain: Code(s): M54.2 - Cervicalgia Category: Medical (2) Degenerative cervical disc: Code(s): M50.30 - Other cervical disc degeneration, unspecified cervical region Category: Medical (3) Muscle spasms of neck: Code(s): M62.838 - Other muscle spasm Category: Medical (4) Cervical spondylosis: Code(s): M47.812 - Spondylosis without myelopathy or radiculopathy, cervical region Category: Medical (5) Fibromyalgia: Code(s): M79.7 - Fibromyalgia Category: Medical Plan The plan for the patient's severe chronic neck pain secondary to advanced psoriatic and degenerative arthritis involves a multi-modal approach. A referral will be placed for physical therapy at [facility] in [place], with a goal of improving range of motion through modalities such as heat, kinetic tape, myofascial release and potentially TENS unit or ultrasound therapy. Medically, the patient will continue with the current regimen of tramadol, baclofen, and duloxetine for pain and symptom management. The patient was also advised to use a cervical roll pillow to support neck curvature during sleep. Procedurally, the patient will be scheduled for bilateral cervical medial branch blocks for potential therapeutic steroid injection (providing ~3 months of relief) or a cervical medial branch radiofrequency ablation (providing >12 months of relief). We discussed two sets of positive diagnostic blocks before the radiofrequency ablation. Schedule Bilateral Diagnostic C4-C5-C6 MBB with local and fluoroscopy for axial and facet mediated neck pain. Expectations, risks and benefits were reviewed. Patient is aware she will be contacted to schedule this procedure. The patient also has pending a follow-up cervical spine MRI per Rheumatology, for which insurance authorization is awaited. All questions and concerns have been answered and patient agreed with the treatment plan. Follow up after injections and sooner as needed. Patient was informed and verbally consented to the use of an ambient scribe for clinic note documentation during this visit. Orders: Orders PT Evaluation and Treatment 08/19/25 L40.50 - Arthropathic psoriasis, unspecified, M50.30 - Other cervical disc degeneration, unspecified cervical region, M54.2 - Cervicalgia, M62.838 - Other muscle spasm Coding Level of Care Code New Pt Level 4 (77957) Diagnoses Neck pain M54.2 Degenerative cervical disc M50.30 Muscle spasms of neck M62.838 Cervical spondylosis M47.812 Fibromyalgia M79.7
[2025-08-19 10:25] VITALS: BP 125/73; PULSE 79; O2SAT 96; BMI 22.9
--- OUTSIDE RECORDS SUMMARY | 2025-08-19 11:36 | XMS_ITS | Clinical Summary ---
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 Name Role Phone Brianna Moreno MD Primary Care Provider [phone] Medications atorvastatin (LIPITOR) 10 mg tablet Take [...] COPD (chronic obstructive pu lmonary disease) ([facility] V24, [facility] V28) 02/21/2025 Psoriatic arthritis ([facility] V24, [facility] V28) 0 02/21/2025 Chronic neck pain 02/21/2025 [...] Health Maintenance Due Date Last Done Comments Colorectal Cancer Screening: Colonoscopy 1961 COVID-19 Vaccine (#1) 1966 DTaP,Tdap,and Td Vaccines (1 - Tdap) 1980 Pneumococcal Vaccine: 50+ Ye ars (1 of 2 - PCV) 1980 Cervical Cancer Screening: P ap Smear 1982 RSV Immunization Adult Patie nts (1 - Risk 50-74 years 1-dose series) 12/08/2011 Zoster Vaccines (1 of 2) 12/08/2011 Breast Cancer Screening 05/24/2020 05/24/2018 HIV Screening 04/16/2024 Hepatitis C Screening 04/16/2024 [...] Procedure Name Priority Date/Time Associated Diagnosis Comments [facility] SCREENING DIGITAL Routine 05/24/2018 4:52 PM EDT Encounter for screening mammogram for malignant neoplasm of breast from Last 3 Months or Most Recently Relevant to Health Maintenance Results * NICHOLE SCREENING DIGITAL (05/24/2018 4:52 PM EDT) Anatomical Region Laterality Modality Mammography 05/24/2018 10:5 3 AM EDT Narrative 05/24/2018 4:52 PM EDT [facility] Diagnostic Imaging Department [address] [place] [address] Patient: ALTAGRACIA MYERS /Age/Sex: 1960 - 57 - F Unit#: [id number] Location/Status: SPDIMAM/REG CLI Mnemonic/Ordering Site: [facility] Ordering Physician: MICHAEL DEAN MD [...] for the next mammogram: CPT II 7025F [id number] Dictating Physician: NELLY CONNOLLY MD Electronically Signed by: NELLY CONNOLLY MD Dic Date/Time: 05/24/18 1649 Sign date/Time: 05/24/18 1652 Procedure Note Nelly Connolly MD - 09/06/2022 [facility] Diagnostic Imaging Department [address] [place] [id number] Patient: ALTAGRACIA MYERS /Age/Sex: 1960 - 57 - F Unit#: [id number] Location/Status: SPDIMAM/REG CLI Mnemonic/Ordering Site: [facility] Ordering Physician: MICHAEL DEAN MD [...] for the next mammogram: CPT II 7025F [id number] Dictating Physician: NELLY CONNOLLY MD Electronically Signed by: NELLY CONNOLLY MD Dic Date/Time: 05/24/18 1649 Sign date/Time: 05/24/18 1652 Michael Dean MD IMG BI PROCEDURES Final Result from Last 3 Months or Most Recently Relevant to Health Maintenance Insurance [facility] [employer] Care Teams Shredding Machine Operator Relationship Specialty Start Date End Date Brianna Moreno MD [address] [place] [id number] PCP - General Internal Medicine 01/31/25
== END 2025-08-19 11:04 | disposition home or self-care (01) ==
LOC: HO.PMC 10:11
PROVIDERS: PCP Internal Medicine; Visit Provider Nurse Practitioner Family
DX: M54.2 Cervicalgia (principal); M62.838 Other muscle spasm; M47.812 Spondylosis without myelopathy or radiculopathy, cervical region; M79.7 Fibromyalgia
CPT/HCPCS: 99204

== ENCOUNTER → 2025-08-19 10:10 | Outpatient (BNVA) | payer OTHER, SELFPAY | PROVIDERS: PCP Internal Medicine; Visit Provider Nurse Practitioner Family | DX: G89.29 Other chronic pain (principal); M50.30 Other cervical disc degeneration, unspecified cervical region; M62.838 Other muscle spasm; M47.22 Other spondylosis with radiculopathy, cervical region; M79.7 Fibromyalgia; L40.50 Arthropathic psoriasis, unspecified; Z79.891 Long term (current) use of opiate analgesic; Z79.899 Other long term (current) drug therapy | CPT/HCPCS: 99202 ==